=== PATIENT | female | born 1970 | race Caucasian/White ===

== ENCOUNTER → 2016-07-31 | Outpatient (CLI) | payer BC, OTHER ==
[~2016-07-31] MED LIST: ALBU18002 INH; BUME1TAB PO; CARV3.12 PO; IMT100 PO; LISI5TAB PO; MOME200A INH; TAMO20TA5 PO
--- NOTE | 2016-07-31 10:18 | DIAGNOSTIC IMAGING REPORT ---
CT SCAN OF THE CHEST WITHOUT IV CONTRAST CLINICAL HISTORY: Follow-up abnormal chest CT. COMPARISON STUDY: Chest CT scans dated 01/25/2016 and 05/26/2007. TECHNIQUE: CT scan of the thorax was performed from the thoracic inlet to the upper abdomen. Images are reviewed in the axial, sagittal, and coronal planes. IV contrast was not administered for this examination as per the referring clinician. CT DOSE: 615.72 mGycm FINDINGS: Thyroid: Imaged portions of the thyroid gland are normal in size and attenuation. Thoracic aorta: There is a right-sided aortic arch. The thoracic aorta is normal in caliber and demonstrates 3-vessel arch anatomy. Heart: The heart is normal in size and there is trace pericardial fluid. The left pulmonary artery is absent. The pulmonary trunk and the right pulmonary artery are normal in caliber. 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 The trachea and central airways are clear. There is trace pleural fluid the left lung base. Intralobular septal thickening and mild nodularity is seen throughout the left lung, greatest in the left upper lobe. This is similar to previous. No concerning pulmonary lesion is identified. Small cysts are present at the left lung base. The right lung is clear. Mediastinum: There is no mediastinal lymphadenopathy. There is leftward shift of mediastinum. Kelly: Not well assessed without IV contrast. Axillae: There is no axillary lymphadenopathy. Upper abdomen: There is a tiny hiatal hernia. Partially visualized upper abdominal viscera is otherwise within normal limits. Skeletal structures: No lytic or blastic bony lesions are seen. Soft tissues: There is a right-sided breast implant. Dermal thickening is noted in the right breast. IMPRESSION: 1. 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 This is similar to previous. 2. 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 3. Intralobular septal thickening and mild nodularity is seen throughout the left lung, greatest in the left upper lobe. This is similar to previous and likely related to the congenital changes detailed above. A superimposed mild infectious/inflammatory pneumonitis could have a similar appearance. Clinical correlation will be required. 4. Trace pleural fluid is seen in the left lung base. 5. Additional findings as above. Electronically signed by: Chano Sosa M.D. 07/31/2016 10:16 AM Dictated Date/Time: 07/31/2016 10:07 AM
== END | disposition home or self-care (01) ==
LOC: C.CTS 09:35
PROVIDERS: ATTEND Physician Assistant Medical
DX: Q25.79 Other congenital malformations of pulmonary artery (principal); Q33.6 Congenital hypoplasia and dysplasia of lung; R91.8 Other nonspecific abnormal finding of lung field

== ENCOUNTER → 2016-09-20 | Outpatient (CLI) | payer OTHER | END | disposition home or self-care (01) | LOC: C.LAB1850 11:26 | PROVIDERS: ATTEND Family Medicine | DX: R60.9 Edema, unspecified (principal) ==

== ENCOUNTER → 2016-10-31 | Outpatient (CLI) | payer OTHER ==
[2016-10-31 10:12] LABS: HEMATOCRIT 40.1 % (37-47); MEAN CELL VOLUME 90.1 fL (80-100); MEAN CORPUSCULAR HEMOGLOBIN 27.6 pg (25-34); MEAN CORPUSCULAR HGB CONC 30.7 g/dl (32-36); PLATELET COUNT 206 K/uL (130-400); RED BLOOD COUNT 4.45 M/uL (4.2-5.4); WHITE BLOOD COUNT 8.54 K/uL (4.8-10.8)
[2016-10-31 10:49] LABS: ALT/SGPT 20 U/L (12-78); AST/SGOT 11 U/L (15-37); BLOOD UREA NITROGEN 11 mg/dl (7-18); BUN/CREATININE RATIO 16.5 (10-20); CALCIUM 8.5 mg/dl (8.5-10.1); CARBON DIOXIDE 30 mmol/L (21-32); CHLORIDE 110 mmol/L (98-107); CREATININE 0.67 mg/dl (0.60-1.20); GLUCOSE 108 mg/dl (70-99); POTASSIUM 4.3 mmol/L (3.5-5.1); SODIUM 143 mmol/L (136-145)
[2016-10-31 10:52] LABS: ALKALINE PHOSPHATASE 48 U/L (45-117); CHOLESTEROL 128 mg/dl (0-200); CHOLESTEROL/HDL RATIO 2.6; HDL CHOLESTEROL 50 mg/dl; LDL CHOLESTEROL CALCULATED 54 mg/dl; TRIGLYCERIDES 121 mg/dl (0-150); VERY LOW DENSITY LIPOPROT CALC 24 mg/dl
== END | disposition home or self-care (01) ==
LOC: C.LAB1850 09:29
PROVIDERS: ATTEND Internal Medicine
DX: Z00.00 Encounter for general adult medical examination without abnormal findings (principal)

== ENCOUNTER → 2017-04-18 | Outpatient (CLI) | payer OTHER ==
--- NOTE | 2017-04-18 09:46 | DIAGNOSTIC IMAGING REPORT ---
(CHEST) THORAX WITHOUT CLINICAL HISTORY: 47 years-old Female presenting with R93.8 Abnormal chest [id number]. TECHNIQUE: Multidetector CT imaging of the chest was performed without the use of intravenous contrast. IV contrast: None. A dose lowering technique was used consistent with the principles of ALARA (as low as reasonably achievable). COMPARISON: 07/31/2016. CT DOSE (mGy.cm): The estimated cumulative dose is 1145.68 mGy.cm. 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 On soft tissue windows, post-surgical changes of subpectoral right breast implant. Overlying skin of the right breast. No axillary, supraclavicular, or mediastinal lymphadenopathy. Evaluation of the rahat limited without intravenous contrast. Normal aorta. 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 Normal heart size. Trace pericardial effusion. No pleural effusion. Hepatic steatosis. On lung windows, relative hyperinflation of the right lung. Minimal irregular bandlike opacity in the right middle lobe (series 4 image 173), new from prior. Paraseptal and centrilobular emphysematous and/or cystic change at the left lung base. Multifocal peribronchovascular nodular consolidation at the left apex, which were present on the prior exam and have not significantly progressed. Smooth interlobular septal thickening. Bronchial wall thickening in the left lung are the left lung is overall less aerated in comparison to the right. On bone windows, normal osseous structures. IMPRESSION: 1. 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 2. Persistent peribronchovascular nodularity and interlobular septal thickening most pronounced at the left apex. This likely represents chronic infection or inflammation. 3. Limited irregular bandlike opacity in the right middle lobe new from prior. This may represent focal scarring or atelectasis. Attention on follow-up. 4. No convincing evidence of a new superimposed infiltrate. 5. Hepatic steatosis. Electronically signed by: Ede Williamson M.D. 04/18/2017 9:44 AM Dictated Date/Time: 04/18/2017 9:34 AM
== END | disposition home or self-care (01) ==
LOC: C.CTS 09:22
PROVIDERS: ATTEND Physician Assistant Medical
DX: Q25.79 Other congenital malformations of pulmonary artery (principal); R91.8 Other nonspecific abnormal finding of lung field; R91.1 Solitary pulmonary nodule; R93.8 Abnormal findings on diagnostic imaging of other specified body structures

== ENCOUNTER → 2017-07-04 | Outpatient (CLI) | payer OTHER ==
--- NOTE | 2017-07-05 15:17 | MAMMOGRAPHY REPORT ---
UNILATERAL LEFT DIGITAL SCREENING MAMMOGRAM TOMOSYNTHESIS WITH CAD: 07/04/2017 CLINICAL HISTORY: Asymptomatic. Personal history of breast cancer. The patient reports a history of skin and nipple sparing right mastectomy as well as chemo radiation. TECHNIQUE: Breast tomosynthesis in addition to standard 2D mammography was performed. Current study was also evaluated with a Computer Aided Detection (CAD) system. Left CC and MLO 2D and tomosynthesi s images and left XCCL and right CC and MLO implant displaced 2D views were obtained. COMPARISON: Comparison is made to exams dated: 05/19/2014, 05/20/2015, 05/16/2013, 05/30/2011 mammogram, mammogram, 05/19/2010 mammogram, 05/16/2010 mammogram, and 05/13/2009 mammogram - [facility]. BREAST COMPOSITION: There are scattered areas of fibroglandular density in the left breast. FINDINGS: There are no suspicious masses, calcifications, or areas of architectural distortion noted in the left breast. There has been no significant interval change in the left breast compared to jarred or exams. A few scattered benign-appearing calcifications are stable. Mammograms were also obtained of the right mastectomy bed due to patient request, which shows a parti ally visualized implant. No suspicious masses, calcifications, or areas of architectural distortion are noted at the right mastectomy bed. Mild diffuse right breast skin thickening is stable compared to the 2016 exam. IMPRESSION: ACR BI-RADS CATEGORY 2: BENIGN There is no mammographic evidence of malignancy. A 1 year screening mammogram is recommended. The pa tient will receive written notification of the results. Approximately 10% of breast cancers are not detected with mammography. A negative mammographic report should not delay biopsy if a clinically suggestive mass is present. Sharifa Walker M.D. /:07/04/2017 15:52:01 [employer]: [employer])([facility]), [facility] letter sent: Normal 1/2 BI-RADS Code: ACR BI-RADS Category 2: Benign
== END | disposition home or self-care (01) ==
LOC: C.MAMM 13:56
PROVIDERS: ATTEND Internal Medicine Hematology & Oncology
DX: Z12.31 Encounter for screening mammogram for malignant neoplasm of breast (principal); Z85.3 Personal history of malignant neoplasm of breast

== ENCOUNTER → 2017-12-05 | Outpatient (CLI) | payer OTHER ==
--- NOTE | 2017-12-05 10:10 | DIAGNOSTIC IMAGING REPORT ---
R ANKLE MIN 3 VIEWS ROUTINE CLINICAL HISTORY: 47 years-old Female presenting with M25.571 Acute right ankle [id number]. TECHNIQUE: Frontal, mortise, and lateral views of the right ankle were obtained. COMPARISON: None. FINDINGS: Ankle mortise congruent. Osteophytosis at the ankle mortise most pronounced anteriorly and posteriorly. Enthesophyte at the origin of the plantar fascia. No acute fracture or malalignment. Soft tissue swelling suggested most pronounced over the lateral malleolus. IMPRESSION: 1. No acute osseous injury. 2. Degenerative changes of the ankle mortise. Electronically signed by: Ede Williamson M.D. 12/05/2017 10:09 AM Dictated Date/Time: 12/05/2017 10:08 AM
== END | disposition home or self-care (01) ==
LOC: C.RAD1850 09:56
PROVIDERS: ATTEND Physician Assistant
DX: M25.571 Pain in right ankle and joints of right foot (principal)

== ENCOUNTER 2021-05-30 09:13 | Inpatient (IN) ==
[2021-05-30] MEDS ORDERED: MoRPHine SULFATE 4 MG/ML 1 ML CARP\\VIAL IV STA (09:41)
[2021-05-30] MEDS ORDERED: ONDANSETRON INJ 2 MG/ML 2 ML VIAL IV STA (09:41)
[2021-05-30] MEDS ORDERED: SODIUM CHLORIDE 0.9% 1000ML 1,000 ML IV ONE (09:41)
--- NOTE | 2021-05-30 09:41 | Emergency Department Note ---
History of Present Illness General Chief complaint: Vomiting Stated complaint: VOMITING, ABD PAIN Time Seen by Provider: 05/30/21 09:32 History of Present Illness Maximum Pain Intensity: 10 This is a 51-year-old female that presents to the emergency department via private vehicle accompanied by with complaints of "vomiting, abdominal pain". The patient states that she has been experiencing vomiting, nausea and epigastric abdominal discomfort that began yesterday around 2 PM shortly after eating cream of chicken soup. She states that initially it was pain in the epigastric region followed by nausea than vomiting. She notes that this has been ongoing since that time. She does note a history of metastatic breast cancer and has been undergoing treatment and has had some associated nausea and vomiting but this is different. She denies any new chest pain or shortness of breath. No fevers. She denies any blood in the stool or vomit. Current discomfort 01/30. She tried Zofran last night as well as morphine that she is prescribed with minimal relief. Home Medications Medication Instructions Recorded Confirmed Type sumatriptan succinate 25 mg tablet 25 mg PO Q2H PRN 01/08/19 05/30/21 History (Imitrex) albuterol sulfate 90 mcg/actuation 2 puffs INH QID PRN #18 gm 10/17/19 05/30/21 Rx aerosol inhaler (ProAir HFA) zoledronic acid 4 mg/5 mL 4 mg IV Q3MO ml 12/31/19 05/30/21 History intravenous solution bumetanide 1 mg tablet 1 mg PO BID #180 tab 08/04/20 05/30/21 Rx fluticasone 232 mcg-salmeterol 14 1 inh INHALATION BID #1 ea 01/03/21 05/30/21 Rx mcg/actuation breath activated powdr gemcitabine [Gemzar] 1 dose IV WK 02/14/21 05/30/21 History ondansetron HCl 8 mg tablet 8 mg PO Q12H 02/22/21 05/30/21 History sacubitril 24 mg-valsartan 26 mg 1 tab PO BID #180 tab 02/22/21 05/30/21 Rx tablet carvedilol 12.5 mg tablet 12.5 mg PO BID #180 tab 03/21/21 05/30/21 Rx benzonatate 100 mg capsule 200 mg PO TID PRN #60 cap 03/28/21 05/30/21 Rx Allergies Allergy/AdvReac Type Severity Reaction Status Date / Time adhesive Allergy Rash Verified 04/27/21 14:42 No Known Drug Allergies Allergy Verified 04/27/21 14:42 Past Med/Surg History Medical History Cardiomyopathy Congenital hypoplasia of lung Left Heart failure with reduced ejection fraction History of breast cancer History of uterine fibroid Metastatic breast cancer (~2019) Prediabetes Surgical History History of breast reconstruction (~2011) Mack, 2 stage Electronic Equipment Set Up Operator/implant [place] smooth round high profile gel 750 cc Ref# [id number] LOT# [id number] SN# [id number] Date of permanent prosthesis placement: 08/12/2013 History of section History of mastectomy, total Hx of cardiac cath Family History Mother Breast cancer Pancreatic cancer Father Heart disease Cardiac arrhythmia Grandmother (Paternal) Breast cancer Family/Other Ovarian cancer Denies family history of Prostate cancer Myocardial infarction Colorectal cancer Social History Smoking Status: Never smoker Hx Alcohol Use: Yes Alcohol type: wine Hx Substance Use: No Preferred Language: Vietnamese Communication Ability: Effective Visual Impairment: Limited Hearing Ability: Normal Air Cargo Specialist Required: No Beliefs That Will Affect Care: None Current Living Situation: Spouse current occupational status: employed 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 Feels Safe at Home: Yes Dental Care, Regularly: Yes Seatbelt Use: always Sunscreen Use: Yes Review of Systems A total of 10 systems reviewed and were otherwise negative Physical Exam Vital Signs Vital Signs - 24 hr 05/30/21 09:15 05/30/21 10:13 05/30/21 10:20 Temperature 36.9 C Temperature Source Oral Pulse Rate 97 H 88 Pulse Rate from SpO2 Sensor 76 Respiratory Rate 18 21 Blood Pressure 111/71 Blood Pressure Mean 84 Pulse Oximetry 93 96 88 L Oxygen Delivery Method Room Air Room Air Sepsis Recent Fever Within 48 Hours No Sepsis New/Unexplained Change in Mental Status No Sepsis Action Taken by Nursing No Action Required 05/30/21 10:30 05/30/21 11:00 05/30/21 11:30 Temperature Temperature Source Pulse Rate 81 85 81 Pulse Rate from SpO2 Sensor 81 85 81 Respiratory Rate 17 12 19 Blood Pressure 114/73 112/83 131/84 Blood Pressure Mean 86 92 99 Pulse Oximetry 96 96 97 Oxygen Delivery Method Sepsis Recent Fever Within 48 Hours Sepsis New/Unexplained Change in Mental Status Sepsis Action Taken by Nursing 05/30/21 12:00 05/30/21 12:30 05/30/21 13:00 Temperature Temperature Source Pulse Rate 87 82 83 Pulse Rate from SpO2 Sensor 86 82 84 Respiratory Rate 14 14 14 Blood Pressure 126/98 123/88 127/87 Blood Pressure Mean 107 99 100 Pulse Oximetry 97 95 95 Oxygen Delivery Method Sepsis Recent Fever Within 48 Hours Sepsis New/Unexplained Change in Mental Status Sepsis Action Taken by Nursing 05/30/21 13:30 05/30/21 13:31 05/30/21 14:00 Temperature Temperature Source Pulse Rate 96 H 91 H 82 Pulse Rate from SpO2 Sensor 95 H 91 H 83 Respiratory Rate 23 21 14 Blood Pressure 86/60 L 104/87 Blood Pressure Mean 68 92 Pulse Oximetry 96 95 96 Oxygen Delivery Method Sepsis Recent Fever Within 48 Hours Sepsis New/Unexplained Change in Mental Status Sepsis Action Taken by Nursing 05/30/21 14:30 05/30/21 15:00 05/30/21 15:01 Temperature Temperature Source Pulse Rate 85 Pulse Rate from SpO2 Sensor 86 83 85 Respiratory Rate 14 14 17 Blood Pressure 111/85 77/61 L Blood Pressure Mean 93 66 Pulse Oximetry 89 L 95 95 Oxygen Delivery Method Sepsis Recent Fever Within 48 Hours Sepsis New/Unexplained Change in Mental Status Sepsis Action Taken by Nursing VITAL SIGNS - Vital signs and nursing notes were reviewed. Stable and afebrile. GENERAL -51-year-old female appearing her stated age who is in no acute distress. Communicates well with provider and answers questions appropriately. SKIN - Without rashes. No meningeal or petechial rash. HEAD - NC/AT. MOUTH/OROPHARYNX - Without perioral cyanosis. NECK - Neck with FROM. No nuchal rigidity. LUNGS - Chest wall symmetric without accessory muscle use, intercostals retractions, or central cyanosis. Normal vesicular breath sounds CTA B/L. No wheezes, rales, or rhonchi appreciated. CARDIAC - RRR with S1/S2. No murmur, rubs, or gallops appreciated. ABDOMEN - Abdominal contour normal without pulsations or visible masses. Epigastric abdominal tenderness to palpation noted. EXTREMITIES - No clubbing or peripheral cyanosis. +5/5 strength noted in UE/LE bilaterally. NEUROLOGIC - Cranial nerves II through XII grossly intact. PSYCH - A&O, and cooperates fully with examiner. Pt is very pleasant and interacts well with examiner. Course Administered Medications Hydromorphone HCl (Hydromorphone Inj 0.5 Mg/0.5 Ml Syr) 0.25 mg IV Q6H PRN PRN Reason: Pain Stop: 06/13/21 14:44 Last Admin: 05/30/21 16:05 Dose: 0.25 mg Documented by: [id number] Magnesium Sulfate/Dextrose (Magnesium Sulfate / D5w) 1 gm in 100 mls @ 50 m ls/hr IV Q2H PEREZ Stop: 05/30/21 19:59 Last Admin: 05/30/21 16:05 Dose: 50 mls/hr Documented by: [id number] Discontinued Medications Sodium Chloride (Nss 1000ml) 1,000 mls @ 500 mls/hr IV .Q2H ONE Stop: 05/30/21 11:40 Last Infusion: 05/30/21 12:19 Dose: 0 mls/hr Documented by: [id number] Admin: 05/30/21 10:17 Dose: 500 mls/hr Documented by: [id number] Lactated Ringer's (Lr) 500 mls @ 1,500 mls/hr IV .Q20M ONE Stop: 05/30/21 13:28 Last Admin: 05/30/21 13:54 Dose: Not Given Documented by: [id number] Lactated Ringer's (Lr) 1,000 mls @ 999 mls/hr IV .Q1H1M ONE Stop: 05/30/21 14:36 Last Admin: 05/30/21 16:04 Dose: 999 mls/hr Documented by: [id number] Piperacillin Sod/Tazobactam (Sod 4.5 gm/ Dextrose) 120 mls @ 200 mls/hr IV NOW ONE; Protocol Stop: 05/30/21 16:20 Last Admin: 05/30/21 16:05 Dose: 200 mls/hr Documented by: [id number] Ioversol (Optiray 320 100ml) 94 ml IV ONCE ONE Stop: 05/30/21 11:21 Last Admin: 05/30/21 11:13 Dose: 94 ml Documented by: [id number] Magnesium Oxide (Magnesium Oxide 400 Mg Tab) 300 mg PO NOW ONE Stop: 05/30/21 13:10 Last Admin: 05/30/21 13:54 Dose: Not Given Documented by: [id number] Morphine Sulfate (Morphine Sulfate 4 Mg/Ml 1 Ml Carp\\Vial) 4 mg IV NOW STA Stop: 05/30/21 09:42 Last Admin: 05/30/21 10:17 Dose: 4 mg Documented by: [id number] Ondansetron HCl (Ondansetron Inj 2 Mg/Ml 2 Ml Vial) 4 mg IV NOW STA Stop: 05/30/21 09:42 Last Admin: 05/30/21 10:17 Dose: 4 mg Documented by: [id number] Medical Decision Making Laboratory Data Result diagrams: 05/30/21 10:20 05/30/21 10:20 Lab Results 05/30/21 05/30/21 05/30/21 Range/Units 10:20 10:20 10:20 WBC 21.23 H (4.8-10.8) K/uL RBC 4.37 (4.2-5.4) M/uL Hgb 14.6 (12.0-16.0) g/dL Hct 45.8 (37-47) % MCV 104.8 H (80-100) fL MCH 33.4 (25-34) pg MCHC 31.9 L (32-36) g/dL RDW Std Deviation 59.7 H (36.4-46.3) fL RDW Coeff of Carol 15.4 H (11.5-14.5) % Plt Count 144 (130-400) K/uL MPV 10.4 (7.4-10.4) fL Immature Gran % (Auto) 0.2 % Neut % (Auto) 91.5 % Lymph % (Auto) 4.2 % [place] % (Auto) 3.7 % Eos % (Auto) 0.2 % Baso % (Auto) 0.2 % Neut # (Auto) 19.41 H (1.4-6.5) K/uL Lymph # (Auto) 0.90 L (1.2-3.4) K/uL [place] # (Auto) 0.78 H (0.11-0.59) K/uL Eos # (Auto) 0.05 (0-0.5) K/uL Baso # (Auto) 0.04 (0-0.2) K/uL Immature Gran # (Auto) 0.05 H (0.00-0.02) K/uL Sodium 136 (136-145) mmol/L Potassium 4.3 (3.5-5.1) mmol/L Chloride 101 (98-107) mmol/L Carbon Dioxide 26 (21-32) mmol/L Anion Gap 9 (3-11) BUN 11 (6-23) mg/dl Creatinine 0.68 (0.6-1.2) mg/dl Est Cr Clr Drug Dosing 120.2 ml/min Est GFR ( Amer) 116.6 ml/min Est GFR (Non-Af Amer) 100.6 ml/min BUN/Creatinine Ratio 16.2 (10-20) Glucose 120 H (70-99(Fasting)) mg/dl Calcium 8.5 (8.5-10.1) mg/dl Magnesium 1.4 L (1.7-2.4) mg/dl Total Bilirubin 2.4 H (0.2-1.0) mg/dl AST 83 H (13-39) U/L ALT 38 (7-52) U/L Alkaline Phosphatase 124 H (34-104) U/L Total Protein 6.2 (6.0-8.3) gm/dl Albumin 2.6 L (3.4-5.0) gm/dl Globulin 3.6 (2.5-4.0) gm/dl Albumin/Globulin Ratio 0.7 L (0.9-2) Lipase 3193 H (11-82) U/L Procalcitonin (0-0.5) ng/ml SARS-CoV-2, RNA, NAAT NEGATIVE (NEGATIVE) 05/30/21 Range/Units 14:10 WBC (4.8-10.8) K/uL RBC (4.2-5.4) M/uL Hgb (12.0-16.0) g/dL Hct (37-47) % MCV (80-100) fL MCH (25-34) pg MCHC (32-36) g/dL RDW Std Deviation (36.4-46.3) fL RDW Coeff of Carol (11.5-14.5) % Plt Count (130-400) K/uL MPV (7.4-10.4) fL Immature Gran % (Auto) % Neut % (Auto) % Lymph % (Auto) % [place] % (Auto) % Eos % (Auto) % Baso % (Auto) % Neut # (Auto) (1.4-6.5) K/uL Lymph # (Auto) (1.2-3.4) K/uL [place] # (Auto) (0.11-0.59) K/uL Eos # (Auto) (0-0.5) K/uL Baso # (Auto) (0-0.2) K/uL Immature Gran # (Auto) (0.00-0.02) K/uL Sodium (136-145) mmol/L Potassium (3.5-5.1) mmol/L Chloride (98-107) mmol/L Carbon Dioxide (21-32) mmol/L Anion Gap (3-11) BUN (6-23) mg/dl Creatinine (0.6-1.2) mg/dl Est Cr Clr Drug Dosing ml/min Est GFR ( Amer) ml/min Est GFR (Non-Af Amer) ml/min BUN/Creatinine Ratio (10-20) Glucose (70-99(Fasting)) mg/dl Calcium (8.5-10.1) mg/dl Magnesium (1.7-2.4) mg/dl Total Bilirubin (0.2-1.0) mg/dl AST (13-39) U/L ALT (7-52) U/L Alkaline Phosphatase (34-104) U/L Total Protein (6.0-8.3) gm/dl Albumin (3.4-5.0) gm/dl Globulin (2.5-4.0) gm/dl Albumin/Globulin Ratio (0.9-2) Lipase (11-82) U/L Procalcitonin 0.94 H (0-0.5) ng/ml SARS-CoV-2, RNA, NAAT (NEGATIVE) Imaging Data Radiologist's Impression: Abdomen/Pelvis CT 05/30/21 09:41 CT abd pelvis IV con only CLINICAL HISTORY: Diffuse abdominal pain with nausea and vomiting . History of breast cancer COMPARISON STUDY: No previous studies for comparison. CT DOSE: 1520.68 mGy.cm TECHNIQUE: Standard CT of the Abdomen and Pelvis was performed with IV contrast. A dose lowering technique was utilized adhering to the principles of ALARA. Contrast Volume: Optiray 320, 94 ml. The patient did not receive oral contrast. FINDINGS: Lung base: The right lung is clear. Bullous disease is seen involving the left lower lobe. This also pleural thickening at the left lung base. Abdominal cavity and pancreas there is: There is no evidence for abdominal mass, adenopathy or gross ascites. There is diffuse edema present involving the pancreas characteristic of acute, diffuse pancreatitis. Peripancreatic inflammatory changes are seen. Fluid is present within the adjacent mesentery with extension into both paracolic gutters. No pseudocyst formation is seen. Liver: There is homogeneous fatty attenuation of the liver parenchyma. There is heterogeneous nodular enhancement of a lesion within the right lobe of the liver anteriorly measuring approximately 2.5 cm. This is most characteristic of a hemangioma. No other enhancing lesions are seen. Spleen: There is homogeneous attenuation of the splenic parenchyma. There is no enhancing mass lesion. Gall Bladder: The gallbladder is distended with cholelithiasis. No evidence for wall thickening or pericholecystic edema is seen. Adrenal glands: The adrenal glands are normal in size and attenuation. There is no evidence for enhancing mass lesion. Kidneys: There is homogeneous attenuation of the renal parenchyma bilaterally. There is no evidence for renal calculus or hydronephrosis. There is no evidence for enhancing mass. Bowel: The bowel loops are normally placed within the abdomen and pelvis without evidence for dilatation or obstruction. There is no evidence for mass lesion. T here are no inflammatory changes present. There is no evidence for free air. The appendix is not visualized. Bladder: The bladder is within normal limits with no evidence for focal mass, calculus or diverticulum. : There is no evidence for pelvic mass or adenopathy. There is no evidence for pelvic ascites. Vasculature: There is no evidence for aneurysmal dilatation of the abdominal aorta. Osseous structures: There is no acute osseous pathology. Degenerative changes are seen within the spine. IMPRESSION: 1. Acute pancreatitis with peripancreatic inflammatory changes and mesenteric edema present. 2. Fatty infiltration of the liver with findings characteristic of a hemangioma. 3. Cholelithiasis with no CT evidence for acute cholecystitis. 4. Additional nonacute findings are delineated above. ACT 112: Negative or not required by law. Electronically signed by: Marc Obrien M.D. 05/30/2021 11:32 AM MDM Narrative Patient was seen and evaluated as above in room C02. Review was performed of nursing notes and vital signs. I did review pertinent previous visits and patient history. After obtaining a thorough history and physical examination the above work up was performed. Patient presents to us today with epigastric abdominal discomfort, nausea and vomiting. Patient does note a history of metastatic breast cancer. She is nontoxic on examination. Vital signs stable. Afebrile. Options of care were discussed with the patient. IV access was established. Labs were drawn. Patient was ordered IV analgesics and antiemetics. IV fluids were also ordered. There is leukocytosis 21.23. No anemia. No evidence of kidney failure. There is hypomagnesemia 1.4. T bili 2.4. AST 83. T bili elevation is new compared to previous. Lipase 3193. Covid testing negative. Patient's nausea, vomiting and abdominal discomfort in the epigastric region with a lipase of [address] scan was obtained of the abdomen and pelvis with IV contrast. Acute pancreatitis noted on CT scan. I do believe that further evaluation and management the inpatient setting is warranted. Patient educated upon todays findings. Patient amenable to inpatient management. Please refer to further documentation regarding her stay. At this time I have low suspicion for ascending cholangitis or emergent infectious etiology to her symptoms at this time. GCS: 15 In the evaluation and treatment of this patient, the following differential diagnoses were considered: ASC, SD, Pneumonia, GERD, Cholecystitis, Ascending Cholangitis, Cholydocholithiasis, Bowel Obstruction, PE, Amongst Others. Impression & Plan Acute pancreatitis, Hypomagnesemia, Nausea & vomiting Discharge Plan Visit Data Chief Complaint: Vomiting Stated Complaint: VOMITING, ABD PAIN ED Provider: Sam Chery ED Midlevel Provider: Paul Borja Discharge Problem: Acute pancreatitis, Hypomagnesemia, Nausea & vomiting Patient Disposition: Admitted As Inpatient Condition: Good Forms Stand Alone Forms: My [employer] Prescriptions Prescriptions: No Action albuterol sulfate [ProAir HFA] 90 mcg/actuation HFA aerosol inhaler 2 puffs INH QID PRN (Reason: shortness of breath or wheezing) Qty: 18 RF: 2 bumetanide 1 mg tablet 1 mg PO BID Qty: 180 RF: 3 fluticasone propion-salmeterol 232-14 mcg/actuation aerosol powdr breath ac tivated 1 inh inhalation BID Qty: 1 RF: 2 carvedilol 12.5 mg tablet 12.5 mg PO BID Qty: 180 RF: 3 benzonatate 100 mg capsule 200 mg PO TID PRN (Reason: cough) Qty: 60 RF: 2 gemcitabine [Gemzar] 1 dose IV WK RF: 0 ondansetron HCl 8 mg tablet 8 mg PO Q12H RF: 0 sacubitril-valsartan 24-26 mg tablet 1 tab PO BID Qty: 180 RF: 3 sumatriptan succinate [Imitrex] 25 mg tablet 25 mg PO Q2H PRN (Reason: Migraine Headache) RF: 0 zoledronic acid 4 mg/5 mL solution 4 mg IV Q3MO RF: 0 Referrals Referrals: Ancelmo Ledbetter DO [Primary Care Provider] -
[2021-05-30 10:30] LABS: Basophils # (auto) 0.04 K/uL (0-0.2); Basophils % (auto) 0.2 %; Eosinophils # (auto) 0.05 K/uL (0-0.5); Eosinophils % (auto) 0.2 %; Hematocrit (blood only) 45.8 % (37-47); Hemoglobin 14.6 g/dL (12.0-16.0); Immature Granulocytes # (auto) 0.05 K/uL (0.00-0.02); Immature Granulocytes % (auto) 0.2 %; Lymphocytes % (auto) 4.2 %; Mean Corpuscular Hemoglobin 33.4 pg (25-34); Mean Corpuscular Hgb Conc 31.9 g/dL (32-36); Mean Corpuscular Volume 104.8 fL (80-100); Mean Platelet Volume 10.4 fL (7.4-10.4); Monocytes # (auto) 0.78 K/uL (0.11-0.59); Monocytes % (auto) 3.7 %; Neutrophils # (auto) 19.41 K/uL (1.4-6.5); Neutrophils % (auto) 91.5 %; Platelet Count 144 K/uL (130-400); RDW Coefficient of Variation 15.4 % (11.5-14.5); RDW Standard Deviation 59.7 fL (36.4-46.3); Red Blood Count 4.37 M/uL (4.2-5.4); White Blood Count 21.23 K/uL (4.8-10.8)
[2021-05-30 10:51] LABS: BUN Creatinine Ratio 16.2 (10-20); Calcium 8.5 mg/dl (8.5-10.1); Creatinine Clr Calc Pharmacy 120.2 ml/min; Est GFR (African American) 116.6 ml/min; Est GFR (Non-African American) 100.6 ml/min; Potassium 4.3 mmol/L (3.5-5.1)
[2021-05-30 10:52] LABS: Albumin Globulin Ratio 0.7 (0.9-2); Albumin Level 2.6 gm/dl (3.4-5.0); Bilirubin,Total 2.4 mg/dl (0.2-1.0); Globulin 3.6 gm/dl (2.5-4.0); Magnesium 1.4 mg/dl (1.7-2.4); Total Protein 6.2 gm/dl (6.0-8.3)
[2021-05-30] MEDS ORDERED: OPTIRAY 320 100ml IV ONE (11:20)
--- NOTE | 2021-05-30 11:34 | CT Scan Report ---
CT abd pelvis IV con only CLINICAL HISTORY: Diffuse abdominal pain with nausea and vomiting . History of breast cancer COMPARISON STUDY: No previous studies for comparison. CT DOSE: 1520.68 mGy.cm TECHNIQUE: Standard CT of the Abdomen and Pelvis was performed with IV contrast. A dose lowering ciarra hnique was utilized adhering to the principles of ALARA. Contrast Volume: Optiray 320, 94 ml. The patient did not receive oral contrast. FINDINGS: Lung base: The right lung is clear. Bullous disease is seen involving the left lower lobe. This also pleural thickening at the left lung base. Abdominal cavity and pancreas there is: There is no evidence for abdominal mass, adenopathy or gross ascites. There is diffuse edema present involving the pancreas characteristic of acute, diffuse pancreatitis. Peripancreatic inflammatory changes are seen. Fluid is present within the adjacent mesentery with ext ension into both paracolic gutters. No pseudocyst formation is seen. Liver: There is homogeneous fatty attenuation of the liver parenchyma. There is heterogeneous nodular enhancement of a lesion within the right lobe of the liver anteriorly measuring approximately 2.5 cm . This is most characteristic of a hemangioma. No other enhancing lesions are seen. Spleen: There is homogeneous attenuation of the splenic parenchyma. There is no enhancing mass lesion . Gall Bladder: The gallbladder is distended with cholelithiasis. No evidence for wall thickening or pe richolecystic edema is seen. Adrenal glands: The adrenal glands are normal in size and attenuation. There is no evidence for enhan cing mass lesion. Kidneys: There is homogeneous attenuation of the renal parenchyma bilaterally. There is no evidence f or renal calculus or hydronephrosis. There is no evidence for enhancing mass. Bowel: The bowel loops are normally placed within the abdomen and pelvis without evidence for dilatat ion or obstruction. There is no evidence for mass lesion. There are no inflammatory changes present. There is no evidence for free air. The appendix is not visualized. Bladder: The bladder is within normal limits with no evidence for focal mass, calculus or diverticulu m. : There is no evidence for pelvic mass or adenopathy. There is no evidence for pelvic ascites. Vasculature: There is no evidence for aneurysmal dilatation of the abdominal aorta. Osseous structures: There is no acute osseous pathology. Degenerative changes are seen within the spi ne. IMPRESSION: 1. Acute pancreatitis with peripancreatic inflammatory changes and mesenteric edema present. 2. Fatty infiltration of the liver with findings characteristic of a hemangioma. 3. Cholelithiasis with no CT evidence for acute cholecystitis. 4. Additional nonacute findings are delineated above. ACT 112: Negative or not required by law. Electronically signed by: Marc Obrien M.D. 05/30/2021 11:32 AM
--- NOTE | 2021-05-30 13:07 | History & Physical Report ---
Date of Service May 30, 2021 Assessment & Plan (1) Pancreatitis, gallstone: Plan: -Diffuse abdominal pain with Lipase 3093. CT of the abdomen showed the gallbladder consistent with cholelithiasis. No evidence for wall thickening or pericholecystic edema seen. Acute pancreatitis with peripancreatic inflammatory changes and mesenteric edema is present. -T bili 2.4, AST 83, ALT 38, alk phos 124. -WBC 21.23 -Blood cultures pending. -IV Zosyn 4.5g Q6h. -Continue LR IVF -Dilaudid 0.25mg Q6h prn. -MRCP ordered, pending. -GI consulted, recommending NPO, ABX, MRCP today with ERCP planned for tomorrow. -CBC, BMP, lipase in AM (2) Cholelithiases: Plan: -As above. (3) Heart failure with reduced ejection fraction: Plan: -Echo from 05/10/21 reveals EF 45-50%. Left ventricular systolic function is borderline reduced, borderline hypokinesis of left ventricle. -Will hold Bumex for now as patient is hypovolemic. -Continue to monitor BMP daily as well as for signs of volume overload. -Continue Entresto and Coreg. (4) Cardiomyopathy: Plan: -Idiopathic versus chemotherapy-induced. -As above. (5) Hypomagnesemia: Plan: -Mg++ 1.4. -Replete 3 g, recheck in AM. (6) Metastatic breast cancer: Plan: -Patient reports her last chemo treatment approx 1 month ago. (7) Reactive airway disease: Plan: -Continue albuterol inhaler. -Continue fluticasone salmeterol inhaler. -Monitor SpO2. (8) DVT prophylaxis: Plan: -SCDs ordered. -Heparin SQ q12 (9) Sepsis: (10) Morbid obesity with BMI of 40.0-44.9, adult: History of Present Illness Chief Complaint: Abdominal pain Primary Care Provider: Ancelmo Ledbetter DO Patient is a 51-year-old female with past medical history of stage IV metastatic breast cancer, HFrEF (EF 45-50%), cardiomyopathy, reactive airway disease, and obesity who presents with abdominal pain and vomiting. Patient states yesterday morning, 05/29, she became nauseated and shortly after. began experiencing frequent emesis. Emesis started out as clear liquid, is now dark green. As the day went on, she developed abdominal pain that has been constant and diffuse in nature. She has been taking her morphine which has slightly alleviated her pain temporarily, however she has been unable to keep meals down since yesterday morning. She endorses diffuse abdominal pain, chills, nausea, and frequent emesis. She also notes she has been more constipated over the past 2 days, but otherwise BMs are unchanged, denies rosie-like stools or diarrhea. No recorded fever, confusion, lightheadedness, dizziness, or urinary symptoms such as increased frequency, urgency, or dysuria. Patient has had chronic nausea with emesis over the 1-2 months, her oncologist believed this may due to one of her chemotherapy agents, which was stopped 3-4 weeks ago. She has not received treatment since then. She has metastatic disease to her lymph nodes, brain, and bone, but denies knowledge of any liver or other abdominal metastatic disease. Allergies Allergy/AdvReac Type Severity Reaction Status Date / Time adhesive Allergy Rash Verified 04/27/21 14:42 No Known Drug Allergies Allergy Verified 04/27/21 14:42 Home Medications Medication Instructions Recorded Confirmed Type sumatriptan succinate 25 mg tablet 25 mg PO Q2H PRN 01/08/19 05/30/21 History (Imitrex) albuterol sulfate 90 mcg/actuation 2 puffs INH QID PRN #18 gm 10/17/19 05/30/21 Rx aerosol inhaler (ProAir HFA) zoledronic acid 4 mg/5 mL 4 mg IV Q3MO ml 12/31/19 05/30/21 History intravenous solution bumetanide 1 mg tablet 1 mg PO BID #180 tab 08/04/20 05/30/21 Rx fluticasone 232 mcg-salmeterol 14 1 inh INHALATION BID #1 ea 01/03/21 05/30/21 Rx mcg/actuation breath activated powdr gemcitabine [Gemzar] 1 dose IV WK 02/14/21 05/30/21 History ondansetron HCl 8 mg tablet 8 mg PO Q12H 02/22/21 05/30/21 History sacubitril 24 mg-valsartan 26 mg 1 tab PO BID #180 tab 02/22/21 05/30/21 Rx tablet carvedilol 12.5 mg tablet 12.5 mg PO BID #180 tab 03/21/21 05/30/21 Rx benzonatate 100 mg capsule 200 mg PO TID PRN #60 cap 03/28/21 05/30/21 Rx Past Med/Surg History Medical History Acute pancreatitis Cardiomyopathy Congenital hypoplasia of lung Left Heart failure with reduced ejection fraction History of breast cancer History of uterine fibroid Metastatic breast cancer (~2019) Mixed hyperlipidemia Morbid obesity with BMI of 45.0-49.9, adult Prediabetes Reactive airway disease Surgical History History of breast reconstruction (~2011) Mack, 2 stage Tube Bender/implant [place] smooth round high profile gel 750 cc Ref# [id number] LOT# [id number] SN# [id number] Date of permanent prosthesis placement: 08/12/2013 History of section History of mastectomy, total Hx of cardiac cath Family History Mother Breast cancer Pancreatic cancer Father Heart disease Cardiac arrhythmia Grandmother (Paternal) Breast cancer Family/Other Ovarian cancer Denies family history of Prostate cancer Myocardial infarction Colorectal cancer Social History Smoking Status: Never smoker Second Hand Exposure: No; Do You Dip or Chew Tobacco: No; Tobacco Cessation Education Requested by Patient: No Hx Alcohol Use: Yes Alcohol type: wine Hx Substance Use: No Preferred Language: Citizen Of [place] Communication Ability: Effective Visual Impairment: Limited Hearing Ability: Normal Lead Injection Mold Technician Required: No Beliefs That Will Affect Care: None Current Living Situation: Family current occupational status: employed 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 Other Information That Helps Us Care for You: No Feels Safe at Home: Yes Safety Concerns: Feels Safe At This Time Dental Care, Regularly: Yes Seatbelt Use: always Sunscreen Use: Yes Assistive Devices: Cane and Glasses Review of Systems Review of Systems: Constitutional: Reportrs chills, no objective fever, myalgias, night sweats Eyes: No diplopia, no worsening or blurred vision ENT: normal hearing, no trouble swallowing Respiratory: No cough, sputum, dyspnea at rest or on exertion Cardiovascular: No chest pain, tightness or palpitations Abdomen: Reports diffuse abdomial pain with nausea and vomiting; no diarrhea or constipation Musculoskeletal: No joint pain, calf pain, swelling Neurologic: No weakness, numbness/tingling, or balance problems Psychiatric: No anxiety or depression Skin: No rash or itch Physical Exam 2 Physical Exam: General: awake, alert, no apparent distress Head: Normocephalic, atraumatic ENT: PERRL, EOMI, no pharyngeal exudate, mucous membranes moist Chest: Clear to auscultation, on room air, no adventitious breath sounds Cardiac: Regular rate and rhythm, no murmur, no JVD, normal peripheral pulses, good capillary refill Abdominal: Diffusely tender to light palpation without localized pain; abdomen is soft and nondistended; NABS x 4 quadrants no rebound or guarding Extremities: Normal inspection, no peripheral edema or erythema, calfs nonte nder to palpation Psych: Normal mood and affect Neuro: AAO x 3, strength intact bilaterally and rated 5/5, no motor deficits, speech is clear, no peripheral sensory deficits Skin: no rash or erythema Results & Data Results & Data ([facility]) Vital Signs (Past 12 Hours) Vital Signs Temp Pulse Resp BP Pulse Ox 05/30/21 11:30 81 19 131/84 97 05/30/21 11:00 85 12 112/83 96 05/30/21 10:30 81 17 114/73 96 05/30/21 10:20 88 21 88 L 05/30/21 10:13 96 05/30/21 09:15 36.9 C 97 H 18 111/71 93 Laboratory Results Abnormal lab results 05/30/21 05/30/21 Range/Units 10:20 10:20 WBC 21.23 H (4.8-10.8) K/uL MCV 104.8 H (80-100) fL MCHC 31.9 L (32-36) g/dL RDW Std Deviation 59.7 H (36.4-46.3) fL RDW Coeff of Carol 15.4 H (11.5-14.5) % Neut # (Auto) 19.41 H (1.4-6.5) K/uL Lymph # (Auto) 0.90 L (1.2-3.4) K/uL [place] # (Auto) 0.78 H (0.11-0.59) K/uL Immature Gran # (Auto) 0.05 H (0.00-0.02) K/uL Glucose 120 H (70-99(Fasting)) mg/dl Magnesium 1.4 L (1.7-2.4) mg/dl Total Bilirubin 2.4 H (0.2-1.0) mg/dl AST 83 H (13-39) U/L Alkaline Phosphatase 124 H (34-104) U/L Albumin 2.6 L (3.4-5.0) gm/dl Albumin/Globulin Ratio 0.7 L (0.9-2) Lipase 3193 H (11-82) U/L Diagnostic Findings Abdomen/Pelvis CT 05/30/21 09:41 CT abd pelvis IV con only CLINICAL HISTORY: Diffuse abdominal pain with nausea and vomiting . History of breast cancer COMPARISON STUDY: No previous studies for comparison. CT DOSE: 1520.68 mGy.cm TECHNIQUE: Standard CT of the Abdomen and Pelvis was performed with IV contrast. A dose lowering technique was utilized adhering to the principles of ALARA. Contrast Volume: Optiray 320, 94 ml. The patient did not receive oral contrast. FINDINGS: Lung base: The right lung is clear. Bullous disease is seen involving the left lower lobe. This also pleural thickening at the left lung base. Abdominal cavity and pancreas there is: There is no evidence for abdominal mass, adenopathy or gross ascites. There is diffuse edema present involving the pancreas characteristic of acute, diffuse pancreatitis. Peripancreatic inflammatory changes are seen. Fluid is present within the adjacent mesentery with extension into both paracolic gutters. No pseudocyst formation is seen. Liver: There is homogeneous fatty attenuation of the liver parenchyma. There is heterogeneous nodular enhancement of a lesion within the right lobe of the liver anteriorly measuring approximately 2.5 cm. This is most characteristic of a hemangioma. No other enhancing lesions are seen. Spleen: There is homogeneous attenuation of the splenic parenchyma. There is no enhancing mass lesion. Gall Bladder: The gallbladder is distended with cholelithiasis. No evidence for wall thickening or pericholecystic edema is seen. Adrenal glands: The adrenal glands are normal in size and attenuation. There is no evidence for enhancing mass lesion. Kidneys: There is homogeneous attenuation of the renal parenchyma bilaterally. There is no evidence for renal calculus or hydronephrosis. There is no evidence for enhancing mass. Bowel: The bowel loops are normally placed within the abdomen and pelvis without evidence for dilatation or obstruction. There is no evidence for mass lesion. There are no inflammatory changes present. There is no evidence for free air. The appendix is not visualized. Bladder: The bladder is within normal limits with no evidence for focal mass, calculus or diverticulum. : There is no evidence for pelvic mass or adenopathy. There is no evidence for pelvic ascites. Vasculature: There is no evidence for aneurysmal dilatation of the abdominal aorta. Osseous structures: There is no acute osseous pathology. Degenerative changes are seen within the spine. IMPRESSION: 1. Acute pancreatitis with peripancreatic inflammatory changes and mesenteric edema present. 2. Fatty infiltration of the liver with findings characteristic of a hemangioma. 3. Cholelithiasis with no CT evidence for acute cholecystitis. 4. Additional nonacute findings are delineated above. Medications Administered Current Medications Lactated Ringer's (Lr) 1,000 mls @ 999 mls/hr IV .Q1H1M ONE Stop: 05/30/21 14:36 Magnesium Sulfate/Dextrose (Magnesium Sulfate / D5w) 1 gm in 100 mls @ 50 mls/hr IV Q2H PEREZ Stop: 05/30/21 19:59 Code Status & VTE Plan Code Status Full Code VTE Prophylaxis Plan VTE Prophylaxis will be ordered: Yes Supervising Physician Co-Signing Physician Notes Attending Attestation and Admission Note: Pt seen/examined, chart reviewed, care plan d/w OSIEL Garcia. I agree w/ the hall components of her documentation with the following addition - sepsis, 2nd to gallstone pancreatitis and ?ascending cholangitis. 51yo female with stage 4 breast ca, chronic systolic CHF with EF 45-50% on most recent echo, morbid obesity, T2DM - presents with severe abdominal pain, N/V beginning 05/29/21. Presented today due to the severe abd pain. Found to have elevated lipase and evidence of pancreatitis on CT. Gall bladder on CT with numerous stones. LFTs all high including bilirubin. During my assessment she complaints of being thirsty, weak, and having ongoing abd pain. PMH/PSH/allergies/meds/sochx/famhx - reviewed vitals - BPs low normal, sats wnl, afebrile gen - looks ill/sickly, uncomfortable due to abd pain eyes - nonicteric mouth - MM dry neck - no JVD heart - RRR, s1 s2 lungs - cta b/l abd - severe tenderness mid-abdomen and mildly in the high epigastric region and RUQ, BS+ but diminished, no HSM ext - no edema, cool feet, pulses 1-2+ b/l labs reviewed ct a/p reviewed A/P: 1. gallstone pancreatitis 2. ?acute cholecystitis with ascending cholangitis? 3. chronic systolic CHF 4. stage 4 breast ca * broad-spectrum IV antibiotics given #2 * blood cultures - trend * MRCP urgently; if choledocholithiasis is present and/or t. bili continues to rise likely to need ERCP; [facility] has been consulted * serial labs * copious LR hydration for #1, at least 125-150cc/hr * does have #3, but is volume depleted on exam and should be able to tolerate the LR hydration * if BPs remain low hold her Entresto and decrease her coreg (or hold it) gen surg consultation - can hold off today but consult them tomorrow as she will need lap james ideally later in admission care plan was d/w [facility] by Ms Garcia pt's status signed out to night resident physician VERY low threshold to transfer to [facility]U [place] Mendez MD PG Care Time/CCT Total # of Minutes Spent Total Time Spent with Patient: Total time spent is greater than 50% in coordination of care (as documented) at patient's floor/unit and/or counseling patient: Coding Level of Care Code 34360 Initial Inpt Care Lvl 3 Diagnoses Pancreatitis, gallstone K85.10 Cholelithiases K80.20 Metastatic breast cancer C50.919 Heart failure with reduced ejection fraction I50.20 Cardiomyopathy I42.9 Reactive airway disease J45.909 Hypomagnesemia E83.42 DVT prophylaxis Z29.9 Sepsis A41.9 Morbid obesity with BMI of 40.0-44.9, adult E66.01; Z68.41
[2021-05-30] MEDS ORDERED: LACTATED RINGER'S 500 ML IV ONE ×2 (13:09→21:13)
[2021-05-30] MEDS ORDERED: MAGNESIUM OXIDE 400 MG TAB PO ONE (13:09)
[2021-05-30] MEDS ORDERED: LACTATED RINGER'S 1,000 ML IV ONE (13:36)
[2021-05-30] MEDS ORDERED: PIPERACILL/TAZOBAC CONSULT ACTIVE PRN ×2 (14:40→20:46)
[2021-05-30] MEDS ORDERED: PIPERACILLIN/TAZOBACTAM 4.5 GM in DEXTROSE 5% 100 ML IV ONE (15:45)
[2021-05-30] MEDS ORDERED: PIPERACILLIN/TAZOBACTAM 4.5 GM/120ML D5W IV ONE (16:02)
[2021-05-30] MEDS: HYDROmorphone INJ 0.5 MG/0.5 ML SYR IV PRN ×2 (16:05→19:37)
[2021-05-30] MEDS: MAGNESIUM SULFATE / D5W 1 GM/100 ML BAG IV SCH ×3 (16:05→19:18)
--- NOTE | 2021-05-30 16:41 | Communication Note ---
Date of Service: May 30, 2021 I was consulted on the patient by primary team regarding gallstone pancreatitis, had leukocytosis and elevated LFTs. Recommend: IV ABx MRCP today NPO ERCP tomorrow.
--- NOTE | 2021-05-30 17:20 | Anesthesiology Consultation ---
Date of Service May 30, 2021 Assessment & Plan (1) Encounter for pre-operative examination: Chart Review Chart Review: Acceptable Risk for Surgery (necessary surgery) and Patient NOT seen in Pre Admission Testing Consults Requested none History Surgery Operation Date: 05/31/21 09:05 Proposed Procedures p Endoscopic Retrograde Cholangiopancreatogram - Barber Mckeon MD Height/Weight Height: 5 ft 4 in Weight: 114.6 kg Allergies Allergy/AdvReac Type Severity Reaction Status Date / Time adhesive Allergy Rash Verified 04/27/21 14:42 No Known Drug Allergies Allergy Verified 04/27/21 14:42 Medications Home Medications Medication Instructions Recorded Confirmed Last Taken sumatriptan succinate 25 mg tablet 25 mg PO Q2H PRN 01/08/19 05/30/21 Unknown (Imitrex) albuterol sulfate 90 mcg/actuation 2 puffs INH QID PRN #18 gm 10/17/19 05/30/21 Unknown aerosol inhaler (ProAir HFA) zoledronic acid 4 mg/5 mL 4 mg IV Q3MO ml 12/31/19 05/30/21 Unknown intravenous solution bumetanide 1 mg tablet 1 mg PO BID #180 tab 08/04/20 05/30/21 Unknown fluticasone 232 mcg-salmeterol 14 1 inh INHALATION BID #1 ea 01/03/21 05/30/21 Unknown mcg/actuation breath activated powdr gemcitabine [Gemzar] 1 dose IV WK 02/14/21 05/30/21 Unknown ondansetron HCl 8 mg tablet 8 mg PO Q12H 02/22/21 05/30/21 Unknown sacubitril 24 mg-valsartan 26 mg 1 tab PO BID #180 tab 02/22/21 05/30/21 Unknown tablet carvedilol 12.5 mg tablet 12.5 mg PO BID #180 tab 03/21/21 05/30/21 Unknown benzonatate 100 mg capsule 200 mg PO TID PRN #60 cap 03/28/21 05/30/21 Unknown Active Medications Generic Name Dose Route Start Last Admin Trade Name Freq PRN Reason Stop Dose Admin Hydromorphone HCl 0.25 mg 05/30/21 14:45 05/30/21 16:05 Hydromorphone Inj 0.5 Mg/0.5 Ml Syr IV 06/13/21 14:44 0.25 mg Q6H PRN Administration Pain Magnesium Sulfate/Dextrose 1 gm in 100 mls @ 50 mls/hr 05/30/21 14:00 05/30/21 17:10 Magnesium Sulfate / D5w IV 05/30/21 19:59 50 mls/hr Q2H PEREZ Administration Past Medical History Medical History Acute pancreatitis Cardiomyopathy Congenital hypoplasia of lung Left Heart failure with reduced ejection fraction History of breast cancer History of uterine fibroid Metastatic breast cancer (~2019) Mixed hyperlipidemia Morbid obesity with BMI of 45.0-49.9, adult Prediabetes Reactive airway disease Past Family History Family History Mother Breast cancer Pancreatic cancer Father Heart disease Cardiac arrhythmia Grandmother (Paternal) Breast cancer Family/Other Ovarian cancer Denies family history of Prostate cancer Myocardial infarction Colorectal cancer Past Surgical History Surgical History History of breast reconstruction (~2011) Mack, 2 stage [employer] Worker/implant [place] smooth round high profile gel 750 cc Ref# [id number] LOT# [id number] SN# [id number] Date of permanent prosthesis placement: 08/12/2013 History of section History of mastectomy, total Hx of cardiac cath Social History Smoking Status: Never smoker Hx Alcohol Use: Yes Alcohol type: wine alcohol intake frequency: a few times a month Hx Substance Use: No Physical Exam Vital Signs Last Vital Signs Temp 36.9 C 05/30/21 09:15 Pulse 85 05/30/21 14:30 Resp 17 05/30/21 15:01 BP 77/61 L 05/30/21 15:01 Pulse Ox 95 05/30/21 15:01 Testing Laboratory Results 05/30/21 10:20 05/30/21 10:20 Electrocardiogram Date: 04/27/21 SR with PVCs, rate 83, left axis deviation Echocardiogram Date: 05/10/21 EF: 45-50 LV Function: dysfunctional (global hypokinesis) RWMA: + hypokinetic (global) Other Findings: + LVH (mild conentric) Valvular Disease: + no significant valvular disease Other Testing CLINICAL HISTORY: Diffuse abdominal pain with nausea and vomiting . History of breast cancer COMPARISON STUDY: No previous studies for comparison. CT DOSE: 1520.68 mGy.cm TECHNIQUE: Standard CT of the Abdomen and Pelvis was performed with IV contrast. A dose lowering technique was utilized adhering to the principles of ALARA. Contrast Volume: Optiray 320, 94 ml. The patient did not receive oral contrast. FINDINGS: Lung base: The right lung is clear. Bullous disease is seen involving the left lower lobe. This also pleural thickening at the left lung base. Abdominal cavity and pancreas there is: There is no evidence for abdominal mass, adenopathy or gross ascites. There is diffuse edema present involving the pancreas characteristic of acute, diffuse pancreatitis. Peripancreatic inflammatory changes are seen. Fluid is present within the adjacent mesentery with extension into both paracolic gutters. No pseudocyst formation is seen. Liver: There is homogeneous fatty attenuation of the liver parenchyma. There is heterogeneous nodular enhancement of a lesion within the right lobe of the liver anteriorly measuring approximately 2.5 cm. This is most characteristic of a hemangioma. No other enhancing lesions are seen. Spleen: There is homogeneous attenuation of the splenic parenchyma. There is no enhancing mass lesion. Gall Bladder: The gallbladder is distended with cholelithiasis. No evidence for wall thickening or pericholecystic edema is seen. Adrenal glands: The adrenal glands are normal in size and attenuation. There is no evidence for enhancing mass lesion. Kidneys: There is homogeneous attenuation of the renal parenchyma bilaterally. There is no evidence for renal calculus or hydronephrosis. There is no evidence for enhancing mass. Bowel: The bowel loops are normally placed within the abdomen and pelvis without evidence for dilatation or obstruction. There is no evidence for mass lesion. There are no inflammatory changes present. There is no evidence for free air. The appendix is not visualized. Bladder: The bladder is within normal limits with no evidence for focal mass, calculus or diverticulum. : There is no evidence for pelvic mass or adenopathy. There is no evidence for pelvic ascites. Vasculature: There is no evidence for aneurysmal dilatation of the abdominal aorta. Osseous structures: There is no acute osseous pathology. Degenerative changes are seen within the spine. IMPRESSION: 1. Acute pancreatitis with peripancreatic inflammatory changes and mesenteric edema present. 2. Fatty infiltration of the liver with findings characteristic of a hemangioma. 3. Cholelithiasis with no CT evidence for acute cholecystitis. 4. Additional nonacute findings are delineated above. ACT 112: Negative or not required by law. Electronically signed by: Marc Obrien M.D. 05/30/2021 11:32 AM
[2021-05-30] MEDS ORDERED: POLYETHYLENE (MIRALAX) 17 GM PACK PO PRN (20:46)
[2021-05-30] MEDS ORDERED: ACETAMINOPHEN 325 MG TAB PO PRN (20:46)
[2021-05-30] MEDS ORDERED: ALBUTEROL HFA 8 GM INHALER INH PRN (21:17)
[2021-05-30] MEDS: ONDANSETRON INJ 2 MG/ML 2 ML VIAL IV PRN (21:28)
[2021-05-30 21:32] LABS: Appearance Urine Cloudy (Clear); Bacteria Urine Automated Negative (Negative); Blood Urine Negative (Negative); Color Urine Orange; Glucose Urine UA Negative (Negative); Ketones Urine Negative (Negative); Leukocyte Esterase Urine 1+ (Negative); Nitrite Urine Positive (Negative); Protein Urine Trace (Negative); RBC Urine Automated 0-4 /hpf (0-4); Specific Gravity Urine > 1.045 (1.000-1.030); Urobilinogen Urine Negative (Negative); WBC Urine Automated >30 /hpf (0-5)
[2021-05-30 21:42] LABS: Bilirubin Urine 1+ (Negative)
[2021-05-30] MEDS ORDERED: PNEUMOCOCCAL POLYSACCHARIDES 25 MCG/0.5 ML VIAL/SYR IM ONE (21:49)
[2021-05-30] MEDS ORDERED: FLUARIX QUADRIVALENT 0.5 ML SYR IM ONE (21:49)
[2021-05-30] MEDS: carvediloL 12.5 MG TAB PO SCH (23:03)
[2021-05-30] MEDS ORDERED: HYDROmorphone INJ 0.5 MG/0.5 ML SYR IV STA (23:08)
[2021-05-30] MEDS ORDERED: LACTATED RINGER'S 750 ML IV SCH (23:15)
[2021-05-30] MEDS: PIPERACILLIN/TAZOBACTAM 4.5 GM in DEXTROSE 5% 100 ML IV SCH (23:41)
[2021-05-30] MEDS: HEPARIN SOD 5,000 UNIT/0.5 ML VIAL SQ SCH (23:41)
[2021-05-30] MEDS: VALSARTAN/SACUBITRIL 26/24MG TAB PO SCH (23:42)
[2021-05-31] MEDS: HYDROmorphone INJ 0.5 MG/0.5 ML SYR IV PRN ×2 (02:09→23:03)
[2021-05-31] MEDS ORDERED: ONDANSETRON 4 MG OD TAB PO STA (02:34)
[2021-05-31] MEDS ORDERED: HYDROmorphone INJ 0.5 MG/0.5 ML SYR IV STA (04:07)
[2021-05-31] MEDS: PIPERACILLIN/TAZOBACTAM 4.5 GM in DEXTROSE 5% 100 ML IV SCH ×3 (06:12→23:45)
[2021-05-31 06:43] LABS: Hematocrit (blood only) 41.2 % (37-47); Hemoglobin 13.2 g/dL (12.0-16.0); Mean Corpuscular Hemoglobin 33.6 pg (25-34); Mean Corpuscular Volume 104.8 fL (80-100); Mean Platelet Volume 10.5 fL (7.4-10.4); Platelet Count 111 K/uL (130-400); RDW Coefficient of Variation 15.8 % (11.5-14.5); RDW Standard Deviation 61.4 fL (36.4-46.3); Red Blood Count 3.93 M/uL (4.2-5.4); White Blood Count 35.35 K/uL (4.8-10.8)
[2021-05-31 06:53] LABS: Basophils # (auto) 0.02 K/uL (0-0.2); Basophils % (auto) 0.1 %; Eosinophils # (auto) 0.01 K/uL (0-0.5); Immature Granulocytes # (auto) 0.18 K/uL (0.00-0.02); Immature Granulocytes % (auto) 0.5 %; Lymphocytes # (auto) 1.09 K/uL (1.2-3.4); Lymphocytes % (auto) 3.1 %; Monocytes # (auto) 2.12 K/uL (0.11-0.59); Neutrophils # (auto) 31.93 K/uL (1.4-6.5); Neutrophils % (auto) 90.3 %
[2021-05-31 07:07] LABS: Albumin Level 2.1 gm/dl (3.4-5.0); Bilirubin Direct 1.1 mg/dl (0-0.2); Bilirubin,Total 2.5 mg/dl (0.2-1.0); Calcium 7.5 mg/dl (8.5-10.1); Creatinine Clr Calc Pharmacy 48.3 ml/min; Est GFR (African American) 39.5 ml/min; Est GFR (Non-African American) 34.1 ml/min; Magnesium 2.1 mg/dl (1.7-2.4); Potassium 4.8 mmol/L (3.5-5.1); Total Protein 5.2 gm/dl (6.0-8.3)
[2021-05-31] MEDS ORDERED: ACETAMINOPHEN 1,000 MG/100 ML VIAL IV PRN (07:51)
[2021-05-31] MEDS ORDERED: HYDROmorphone INJ 1 MG/ML SYRINGE IV PRN (07:51)
[2021-05-31] MEDS ORDERED: INDOMETHACIN 50 MG SUPP PR ONE (08:08)
[2021-05-31] MEDS: ONDANSETRON INJ 2 MG/ML 2 ML VIAL IV PRN ×2 (09:00→23:29)
[2021-05-31] MEDS: carvediloL 12.5 MG TAB PO SCH (09:04)
[2021-05-31] MEDS: FLUTICASONE/VILANTEROL 100/25MCG 14 PUFFS/INHALER INH SCH (09:05)
[2021-05-31] MEDS: VALSARTAN/SACUBITRIL 26/24MG TAB PO SCH (09:06)
[2021-05-31] MEDS: HEPARIN SOD 5,000 UNIT/0.5 ML VIAL SQ SCH (09:08)
--- NOTE | 2021-05-31 09:11 | Gastrointestinal Consultation ---
Date of Consultation May 31, 2021 Supervising Physician Co-Signing Physician Notes I performed a history and physical examination of the patient today, including specifically on physical exam - soft abdomen. I have discussed the patient's management with the advanced practitioner. Please refer to the nurse practitioner's note for the documented findings and plan of care. EUS/ERCP today. History of Present Illness Reason for Consultation: Pancreatitis, cholelithiasis Requesting Physician: Dr. Tariq De La Rosa Attending Physician: Dr. Barber Mckeon History of Present Illness Pt is a 51 yo female w hx of breast ca w mets to lymph nodes, brain, bone, cardiomyopathy (EF 45-50%), reactive airway disease, who presented yesterday w c/o abd pain and n/v x few days. She has associated chills but no fever, also no signs of coffee ground emesis/hematemesis, bowel habit changes. She is in between her chemo session, last agent was causing too much n/v and was stopped 4 weeks ago. She received her chemo treatments in [place]. On eval, noted she has leukocytosis w increasing WBC on Zosyn IV. Cr rising despite IVF resuscitation w LR. LFTs, lipase increased. CT abd/pelvis w signs of pancreatitis, gallstones w/o obvious signs of cholecystitis. ASSESSMENT AND PLAN: Pt is a 51 yo female w hx of metastatic breast ca seen for suspected gallstone pancreatitis. - Keep NPO - Zosyn IV - F/U blood cx - Cancel MRCP, plan for EUS/ERCP today in OR - Given rise in Cr, will increase IVF rate LR @150ml/hr, also will ask hospitalist to hold BP meds Allergies Allergy/AdvReac Type Severity Reaction Status Date / Time adhesive Allergy Rash Verified 04/27/21 14:42 No Known Drug Allergies Allergy Verified 04/27/21 14:42 Home Medications Medication Instructions Recorded Confirmed Type sumatriptan succinate 25 mg tablet 25 mg PO Q2H PRN 01/08/19 05/30/21 History (Imitrex) albuterol sulfate 90 mcg/actuation 2 puffs INH QID PRN #18 gm 10/17/19 05/30/21 Rx aerosol inhaler (ProAir HFA) zoledronic acid 4 mg/5 mL 4 mg IV Q3MO ml 12/31/19 05/30/21 History intravenous solution bumetanide 1 mg tablet 1 mg PO BID #180 tab 08/04/20 05/30/21 Rx fluticasone 232 mcg-salmeterol 14 1 inh INHALATION BID #1 ea 01/03/21 05/30/21 Rx mcg/actuation breath activated powdr gemcitabine [Gemzar] 1 dose IV WK 02/14/21 05/30/21 History ondansetron HCl 8 mg tablet 8 mg PO Q12H 02/22/21 05/30/21 History sacubitril 24 mg-valsartan 26 mg 1 tab PO BID #180 tab 02/22/21 05/30/21 Rx tablet carvedilol 12.5 mg tablet 12.5 mg PO BID #180 tab 03/21/21 05/30/21 Rx benzonatate 100 mg capsule 200 mg PO TID PRN #60 cap 03/28/21 05/30/21 Rx Patient History Medical History Acute pancreatitis Cardiomyopathy Congenital hypoplasia of lung Left Heart failure with reduced ejection fraction History of breast cancer History of uterine fibroid Metastatic breast cancer (~2019) Mixed hyperlipidemia Morbid obesity with BMI of 45.0-49.9, adult Prediabetes Reactive airway disease Surgical History History of breast reconstruction (~2011) Mack, 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 Bow smooth round high profile gel 750 cc Ref# [id number] LOT# [id number] # [id number] Date of permanent prosthesis placement: 08/12/2013 History of section History of mastectomy, total Hx of cardiac cath Family History Mother Breast cancer Pancreatic cancer Father Heart disease Cardiac arrhythmia Grandmother (Paternal) Breast cancer Family/Other Ovarian cancer Denies family history of Prostate cancer Myocardial infarction Colorectal cancer Social History Smoking Status: Never smoker Second Hand Exposure: No; Do You Dip or Chew Tobacco: No; Tobacco Cessation Education Requested by Patient: No Hx Alcohol Use: Yes Alcohol type: wine Hx Substance Use: No Preferred Language: Guinean Communication Ability: Effective Visual Impairment: Limited Hearing Ability: Normal Extrusion Operator Required: No Beliefs That Will Affect Care: None Current Living Situation: Family current occupational status: employed 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 Other Information That Helps Us Care for You: No Feels Safe at Home: Yes Safety Concerns: Feels Safe At This Time Dental Care, Regularly: Yes Seatbelt Use: always Sunscreen Use: Yes Assistive Devices: Cane and Glasses Review of Systems Review of Systems: All systems reviewed & are unremarkable except as noted in HPI & below Physical Exam Constitutional: WD/WN, vitals as above + ill appearing, well groomed and cooperative Eyes: PERRL, conjunctivae normal, anicteric sclerae ENMT: external ear and nose normal, oropharynx normal Respiratory: normal respiratory effort, lungs clear to auscultation Cardiovascular: RRR, no murmur, no edema Gastrointestinal (Abdomen): soft, hypoactive BS, TTP mostly on upper areas Skin: no rashes, warm and dry no jaundice Psychiatric: A+Ox3, euthymic affect Appears lethargic, forgetful Lymphatic: no lymphedema Results & Data ([facility]) Vital Signs (Past 12 Hours) Vital Signs Temp Pulse Resp BP Pulse Ox Pulse Ox 05/31/21 07:52 37.4 C 84 18 108/67 93 05/30/21 23:30 90 05/30/21 22:49 36.3 C L 84 14 108/73 93
[2021-05-31] MEDS: LACTATED RINGER'S 1,000 ML IV SCH ×2 (09:14→21:22)
[2021-05-31] MEDS ORDERED: LACTATED RINGER'S 500 ML IV ONE ×2 (12:30→21:48)
--- NOTE | 2021-05-31 12:36 | Hospitalist Progress Note ---
Date of Service May 31, 2021 Assessment & Plan (1) Sepsis: Plan: - SEVERE SEPSIS manifested by hypotension, tachycardia, +procal, KITA, leukocytosis with gallstone pancreatitis who is developing cholangitis - WBC climbing, today 35,000 up from 21,000 with left shift - IVF hydration needs to be increased, 500 cc bolus has been ordered and will run fluids at minimum rate of 150 cc/hr - Continue Zosyn - Place ALL BP meds on hold - She is for ERCP today, I have called and d/w OR engine assembly supervisor, pt will be moved up and done first around 1pm - She will be transferred to PCU for closer monitoring - At this time, she is asymptomatic regarding her hypotension which is likely multifactoral: lower baseline, pain medications, and infection - Continue to monitor closely, ultimately, with gallstone removal, pt's overall clinical picture should improve (2) Cholangitis: Plan: - See #1 (3) Pancreatitis, gallstone: Plan: - Diffuse abdominal pain with Lipase 3093. CT of the abdomen showed the gallbladder consistent with cholelithiasis. No evidence for wall thickening or pericholecystic edema seen. Acute pancreatitis with peripancreatic inflammatory changes and mesenteric edema is present. - TB 2.5 this AM up from 2.4, DB 1.1 - Blood cultures pending. - IV Zosyn 4.5g Q6h. - Continue LR IVF - Dilaudid 0.25mg Q6h prn ordered, change to 0.5mg IV q4h and add IV APAP for better pain control - MRCP ordered but not performed, uncertain why - GI consulted, for ERCP today, she remains NPO - Appreciate GI assistance (4) Cholelithiases: Plan: -As above. (5) UTI (urinary tract infection): Plan: - She is empirically on Zosyn - Culture data noted no growth, but would treat given her chronic immune suppression with chemo and breast CA - UA nitrite positive with 1+ leukocyte esterase and >30 wbc (6) Acute kidney injury: Plan: - Secondary to severe sepsis - Continue aggressive IVF hydration - Continue to monitor renal fxn - Hold entresto as outlined above (7) Heart failure with reduced ejection fraction: Plan: -Echo from 05/10/21 reveals EF 45-50%. Left ventricular systolic function is borderline reduced, borderline hypokinesis of left ventricle. -Will hold Bumex for now as patient is hypovolemic. -Continue to monitor BMP daily as well as for signs of volume overload. -Hold Entresto and Coreg due to #1 (8) Cardiomyopathy: Plan: -Idiopathic versus chemotherapy-induced. -As above. (9) Hypomagnesemia: Plan: - Mg++ 1.4. - Repleted on admit with Mag Sulfate, total 3g - Repeat Mg level this AM normal at 2.1 (10) Metastatic breast cancer: Plan: -Patient reports her last chemo treatment approx 1 month ago. (11) Reactive airway disease: Plan: -Continue albuterol inhaler. -Continue fluticasone salmeterol inhaler. -Monitor SpO2. (12) DVT prophylaxis: Plan: -SCDs ordered. -Heparin SQ q12 (13) Morbid obesity with BMI of 40.0-44.9, adult: Plan: For OR today with [facility] for bile stone extraction via ERCP. Continue antibiotics, fluids, pain control, antiemetics. Hold BP meds. Transfer to PCU for closer monitoring in setting of severe sepsis. Above plan of care has been d/w Dr. De La Rosa. Admission and Anticipated Discharge Date Admission Date: May 30, 2021 Subjective Pt seen on rounds today. She reports ongoing RUQ pain that is poorly controlled at this point. RN requested something more for pain this morning and subsequently her Dilaudid was increased and IV APAP was given. She denies cp, dyspnea. She has no nausea or vomiting currently. She's been NPO since admission in preparation for ERCP which is to be done today. Notified this afternoon that pt's BP 80s/50s, pt asymptomatic and she and her claim that she chronically has lower blood pressure, typically 90s systolic. They have dis cussed stopping her entresto in the past d/t marginal BPs but hasn't been done. GI BALLOON SANDER concerned re: development of cholangitis, she increased IVF rate and placed BP meds on hold. Review of Systems Review of Systems: Constitutional: Reports chills, no objective fever, myalgias, night sweats Eyes: No diplopia, no worsening or blurred vision ENT: normal hearing, no trouble swallowing Respiratory: No cough, sputum, dyspnea at rest or on exertion Cardiovascular: No chest pain, tightness or palpitations Abdomen: Reports diffuse abdomial pain with nausea and vomiting; no diarrhea or constipation Musculoskeletal: No joint pain, calf pain, swelling Neurologic: No weakness, numbness/tingling, or balance problems Psychiatric: No anxiety or depression Skin: No rash or itch Physical Exam Physical Exam: GENERAL: 58 yo obese WF who appears ill. NAD. LUNGS: Clear to auscultation bilaterally. No W/R/R. CARDIOVASCULAR: Regular rate and rhythm. No M/G/R. No JVD. ABDOMEN: Soft, nondistended, markedly TTP in RUQ. BS hypoactive x 4 quad. EXTREMITIES: No edema. Non-tender. Peripheral pulses +2/4. NEUROLOGIC: A&O x3. PSYCHIATRIC: Cooperative. Appropriate mood and affect. SKIN: warm, dry, intact. I would argue she does appear slightly jaundiced. Results & Data Results & Data ([facility]) Vital Signs (Past 12 Hours) Vital Signs Temp Pulse Resp BP Pulse Ox 05/31/21 11:59 85/53 L 05/31/21 11:20 36.7 C 88 16 93 05/31/21 07:52 37.4 C 84 18 108/67 93 Laboratory Results 05/31/21 06:02 05/31/21 06:02 Lipase 1745 down from 3193 on admission PG Care Time/CCT Total # of Minutes Spent Total Time Spent with Patient: Total time spent is greater than 50% in coordination of care (as documented) at patient's floor/unit and/or counseling patient: Coding Level of Care Code 96068 Subseq Hosp Care Lvl 3 Diagnoses Pancreatitis, gallstone K85.10 Cholelithiases K80.20 Heart failure with reduced ejection fraction I50.20 Cardiomyopathy I42.9 Hypomagnesemia E83.42 Metastatic breast cancer C50.919 Reactive airway disease J45.909 DVT prophylaxis Z29.9 Sepsis A41.9 Morbid obesity with BMI of 40.0-44.9, adult E66.01; Z68.41 Cholangitis K83.09 UTI (urinary tract infection) N39.0 Acute kidney injury N17.9
[2021-05-31] MEDS ORDERED: LACTATED RINGER'S 1,000 ML IV ONE (13:23)
[2021-05-31] MEDS ORDERED: ALBUMIN HUMAN 5% 12.5 GM/250 ML VIAL IV ONE (13:29)
[2021-05-31] MEDS ORDERED: MIDAZOLAM HCL 1 MG/ML 2ML VIAL ONE (13:34)
[2021-05-31] MEDS ORDERED: SUCCINYLCHOLINE CHLORIDE 20 MG/ML 10 ML VIAL IV ONE (13:34)
[2021-05-31] MEDS ORDERED: fentaNYL citrate 100 MCG/2 ML VIAL ONE ×2 (13:34→15:02)
[2021-05-31] MEDS ORDERED: LIDOCAINE 2% 2 ML VIAL/AMP(20MG/ML) INFIL ONE (13:34)
[2021-05-31] MEDS ORDERED: PROPOFOL IV EMULSION 10 MG/ML 20 ML VIAL IV ONE (13:34)
[2021-05-31] MEDS ORDERED: fentaNYL citrate 100 MCG/2 ML VIAL IV PRN (13:53)
[2021-05-31] MEDS ORDERED: ONDANSETRON INJ 2 MG/ML 2 ML VIAL IV PRN (13:53)
[2021-05-31] MEDS ORDERED: ePHEDrine sulfate 50 MG/ML AMP IV PRN (13:53)
[2021-05-31] MEDS ORDERED: ATROPINE SULFATE 0.1 MG/ML 10ML SYR IV PRN (13:53)
[2021-05-31] MEDS ORDERED: PHENYLEPHRINE HCL 10 MG/ML VIAL ONE (14:24)
[2021-05-31] MEDS ORDERED: VASOPRESSIN 20 UNIT/ML VIAL ONE (14:24)
--- NOTE | 2021-05-31 15:23 | Operative Report ---
Post Operative Report Pre & Post Diagnosis Operation Date: 05/31/21 09:05 Pre-Op Diagnosis: PANCREATITIS I identified the patient and participated in the time-out.: Yes Procedure Operation Date: 05/31/21 09:05 Actual Procedures p Esophagogastroduodenoscopy - Barber Mckeon MD s Endoscopic Ultrasonography Upper - Barber Mckeon MD p Endoscopic Retrograde Cholangiopancreato - Barber Mckeon MD Surgeon Barber Mckeon MD Sleep Lab Technician None Estimated Blood Loss 0 Findings See Below (cholangitis, CBD stent placed) Specimens None Description of Procedure EUS/ERCP I attest to the content of the Intraoperative Record and any orders documented therein. Any exceptions are noted below.
--- NOTE | 2021-05-31 15:34 | GI REPORT ---
Patient Name: Roma Molina Procedure Date: 05/31/2021 1:27 PM Date of : 1970 Admit Type: Inpatient Age: 51 Gender: Female Attending MD: Barber Mckeon MD Procedure: Upper GI endoscopy Providers: Barber Mckeon MD Referring MD: Tariq De La Rosa Indications: Abdominal pain Medicines: General Anesthesia Complications: No immediate complications. Estimated Blood Loss: Estimated blood loss: none. Procedure: Pre-Anesthesia Assessment: - Prior to the procedure, a History and Physical was performed, and patient medications, allergies and sensitivities were reviewed. The patient's tolerance of previous anesthesia was reviewed. - The risks and benefits of the procedure and the sedation options and risks were discussed with the patient. All questions were answered and informed consent was obtained. - Patient identification and proposed procedure were verified prior to the procedure by the physician and the nurse. The procedure was verified in the procedure room. - Pre-procedure physical examination revealed no contraindications to sedation. After obtaining informed consent, the endoscope was passed under direct vision. Throughout the procedure, the patient's blood pressure, pulse, and oxygen saturations were monitored continuously. The Endoscope was introduced through the mouth, and advanced to the second part of duodenum. The upper GI endoscopy was accomplished without difficulty. The patient tolerated the procedure well. Findings: The examined esophagus was normal. No gross lesions were noted in the entire examined stomach. The duodenal bulb and second portion of the duodenum were normal. Impression: - Normal esophagus. - No gross lesions in the stomach. - Normal duodenal bulb and second portion of the duodenum. Recommendation: - Perform an upper endoscopic ultrasound (UEUS) today. Barber Mckeon MD 05/31/2021 3:33:59 PM This report has been signed electronically. Note Initiated On: 05/31/2021 1:27 PM Number of Addenda: 0 I attest to the content of the Intraoperative Record and orders documented therein, exceptions below {[id number]}
--- NOTE | 2021-05-31 15:41 | GI REPORT ---
Patient Name: Roma Molina Procedure Date: 05/31/2021 1:26 PM Date of : 1970 Admit Type: Inpatient Age: 51 Gender: Female Attending MD: Barber Mckeon MD Procedure: Upper EUS Providers: Barber Mckeon MD Referring MD: Tariq De LaR osa Indications: Elevated liver enzymes, Suspected choledocholithiasis, Acute pancreatitis Medicines: General Anesthesia Complications: No immediate complications. Estimated Blood Loss: Estimated blood loss: none. Procedure: Pre-Anesthesia Assessment: - Prior to the procedure, a History and Physical was performed, and patient medications, allergies and sensitivities were reviewed. The patient's tolerance of previous anesthesia was reviewed. - The risks and benefits of the procedure and the sedation options and risks were discussed with the patient. All questions were answered and informed consent was obtained. - Patient identification and proposed procedure were verified prior to the procedure by the physician and the nurse. The procedure was verified in the procedure room. - Pre-procedure physical examination revealed no contraindications to sedation. After obtaining informed consent, the endoscope was passed under direct vision. Throughout the procedure, the patient's blood pressure, pulse, and oxygen saturations were monitored continuously. The scope was introduced through the mouth, and advanced to the second part of duodenum. The upper EUS was accomplished without difficulty. The patient tolerated the procedure well. Findings: ENDOSONOGRAPHIC FINDING: : There was no sign of significant endosonographic abnormality in the ampulla. No masses were identified. A small amount of hyperechoic material consistent with sludge was visualized endosonographically in the common bile duct. There was dilation in the common bile duct which measured up to 7 mm. There a possible distal CBD stricture. One stone and sludge was visualized endosonographically in the gallbladder. It was hyperechoic and characterized by shadowing. Pancreatic parenchymal abnormalities were noted in the entire pancreas. These consisted of diffuse echogenicity and lobularity. There was abnormal echogenicity in the entire examined liver. This area was hyperechoic. There was no sign of significant endosonographic abnormality involving the celiac trunk. Impression: - There was no sign of significant pathology in the ampulla. - Hyperechoic material consistent with sludge was visualized endosonographically in the common bile duct. - There was dilation in the common bile duct which measured up to 7 mm. - One stone and sludge was visualized endosonographically in the gallbladder. - Pancreatic parenchymal abnormalities consisting of diffuse echogenicity and lobularity were noted in the entire pancreas likely related to the underlying acute pancreatitis. - There was abnormal echogenicity in the entire examined liver suggestive of fatty infiltration. - The celiac trunk was endosonographically normal. Recommendation: - Perform an ERCP today. Barber Mckeon MD 05/31/2021 3:40:33 PM This report has been signed electronically. Note Initiated On: 05/31/2021 1:26 PM Number of Addenda: 0 I attest to the content of the Intraoperative Record and orders documented therein, exceptions below {[id number]}
--- NOTE | 2021-05-31 15:49 | GI REPORT ---
Patient Name: Roma Molina Procedure Date: 05/31/2021 1:26 PM Date of : 1970 Admit Type: Inpatient Age: 51 Gender: Female Attending MD: Barber Mckeon MD Procedure: ERCP Providers: Barber Mckeon MD Referring MD: Tariq De La Rosa Indications: Suspected ascending cholangitis, Gallstone associated acute pancreatitis Medicines: General Anesthesia Complications: No immediate complications. Estimated Blood Loss: Estimated blood loss: none. Procedure: Pre-Anesthesia Assessment: - Prior to the procedure, a History and Physical was performed, and patient medications, allergies and sensitivities were reviewed. The patient's tolerance of previous anesthesia was reviewed. - The risks and benefits of the procedure and the sedation options and risks were discussed with the patient. All questions were answered and informed consent was obtained. - Patient identification and proposed procedure were verified prior to the procedure by the physician and the nurse. The procedure was verified in the procedure room. - Pre-procedure physical examination revealed no contraindications to sedation. After obtaining informed consent, the scope was passed under direct vision. Throughout the procedure, the patient's blood pressure, pulse, and oxygen saturations were monitored continuously. The Duodenoscope was introduced through the mouth, and advanced to the duodenum and used to inject contrast into the bile duct. The ERCP was accomplished without difficulty. The patient tolerated the procedure well. Findings: The technical marketing engineer film was normal. The esophagus was successfully intubated under direct vision. The scope was advanced to a normal major papilla in the descending duodenum without detailed examination of the pharynx, larynx and associated structures, and upper GI tract. The upper GI tract was grossly normal. A 0.035 inch angled standard wire was passed into the ventral pancreatic duct. The ventral pancreatic duct was then deeply cannulated. Contrast was injected. One 5 Fr by 9 cm plastic pancreatic stent with a single external pigtail and no internal flaps was placed into the ventral pancreatic duct. Clear fluid flowed through the stent. The stent was in good position. A biliary pre-cut sphincterotomy was made with a monofilament needle knife over a pancreatic stent using ERBE electrocautery. There was no post-sphincterotomy bleeding. A 0.025 inch x 270 cm angled Visiglide wire was passed into the biliary tree. The Fusion OMNI sphincterotome was passed over the guidewire and the bile duct was then deeply cannulated. Contrast was injected. Opacification of the entire biliary tree was successful. The maximum diameter of the ducts was 8 mm. The biliary orifice was stenotic. This appeared benign. The biliary sphincterotomy was extended with a monofilament traction (standard) sphincterotome using ERBE electrocautery. There was no post-sphincterotomy bleeding. The biliary tree was swept with a 15 mm balloon starting at the bifurcation. Sludge was swept from the duct. One 10 Fr by 8 cm plastic biliary stent with a single external flap and a single internal flap was placed into the common bile duct. Bile flowed through the stent. The stent was in good position. Impression: - Benign biliary papillary stenosis likely related to recent passage of a gallstone causing an element of biliary obstruction. - A biliary sphincterotomy was performed. - The biliary tree was swept and thick black sludge was found. - One plastic biliary stent was placed into the common bile duct. - One plastic pancreatic stent was placed into the ventral pancreatic duct. Recommendation: - [facility]. - Refer to a surgeon for cholecystectomy. - Continue IV ABx. - Repeat ERCP in 6 weeks to remove stent. COMMENT: It is not very clear if the source of her severe sepsis is the biliary tree hence please expand the work up to include all other sources, specifically if she does not improve after biliary stenting. Barber Mckeon MD 05/31/2021 3:48:30 PM This report has been signed electronically. Note Initiated On: 05/31/2021 1:26 PM Number of Addenda: 0 I attest to the content of the Intraoperative Record and orders documented therein, exceptions below {[id number]}
[2021-05-31] MEDS ORDERED: STAT IV Infusion **Titration per Protocol STA (16:11)
--- NOTE | 2021-05-31 16:12 | Fluoroscopy Report ---
[place] ERCP biliary ductal CLINICAL HISTORY: EXPLORE DUCTS COMPARISON STUDY: CT of the abdomen and pelvis May 30, 2021. FLUOROSCOPY TIME: 57 seconds. FLUOROSCOPIC IMAGES: 7 FINDINGS: Fluoroscopy was provided during ERCP. These images demonstrate cannulation of the common bi le duct with balloon sweep through the common bile duct. Filling defects within the common bile duct reflect calculi or gas bubbles. Final image demonstrates placement of a common bile duct stent. IMPRESSION: Fluoroscopy provided during ERCP with placement of a common bile duct stent. ACT 112: Negative or not required by law. Electronically signed by: Srinivasa Lui M.D. 05/31/2021 4:11 PM
[2021-05-31] MEDS ORDERED: Standard Conc 16mcg/mL; 8mg in 500mL IV SCH (16:15)
[2021-05-31] MEDS: NOREPINEPHRINE/D5W 8 MG/508 ML BAG IV SCH (16:30)
[2021-05-31] MEDS ORDERED: DAPTOmycin 475 MG in SYRINGE 0 ML IV ONE (17:15)
--- NOTE | 2021-05-31 17:40 | Anesthesiology Progress Note ---
Date of Service May 31, 2021 Anesthesia Post Procedure Vital Signs Vital Signs: Temp Pulse Resp BP BP BP Pulse Ox 05/31/21 12:57 36.6 C 93 H 20 69/50 L 79/51 L 93 05/31/21 11:59 85/53 L 05/31/21 11:20 36.7 C 88 16 93 05/31/21 07:52 37.4 C 84 18 108/67 93 05/30/21 23:30 05/30/21 22:49 36.3 C L 84 14 108/73 93 05/30/21 20:30 37 C 104 H 14 94/65 L 90 05/30/21 19:30 24 95/68 L 95 05/30/21 19:00 15 101/64 94 05/30/21 18:31 15 95 05/30/21 18:30 15 95 05/30/21 18:02 16 94 05/30/21 18:01 18 67/44 L 95 05/30/21 18:00 20 96 Pulse Ox 05/31/21 12:57 05/31/21 11:59 05/31/21 11:20 05/31/21 07:52 05/30/21 23:30 90 05/30/21 22:49 05/30/21 20:30 05/30/21 19:30 05/30/21 19:00 05/30/21 18:31 05/30/21 18:30 05/30/21 18:02 05/30/21 18:01 05/30/21 18:00 Pain Intensity Bilateral Abdomen: Pain Intensity: 9 Transfer of Care Handoff Completed per policy Notes Mental Status: alert / awake / arousable Patient Amnestic to Procedure: Yes Nausea / Vomiting: adequately controlled Pain: adequately controlled Airway Patency, RR, SpO2: stable & adequate BP & HR: see Notes below Hydration State: see Notes below Anesthetic Complications: no major complications apparent Notes: patient remains septic and hypotensive in pacu. mental status is sleepy but oriented. arterial line placed in pacu and norepinephrine started to keep map>60. We will transfer her to ICU, and I have spoken with the knitting machine operator who will accept the patient.
[2021-05-31] MEDS ORDERED: ICU PROTOCOL FOR HYPERGLYCEMIA PRN (17:52)
[2021-05-31] MEDS ORDERED: VANCOMYCIN CONSULT ACTIVE PRN (17:52)
[2021-05-31 18:28] LABS: Allen Test Pos (Pos); Base Excess ABG -5.1 mEq/L (-9-1.8); HCO3 ABG 20 mmol/L (19-24); Oxygen Saturation ABG 95.6 % (90-95); PCO2 ABG 38 mmHg (35-46); PO2 ABG 77 mmHg (80-95); pH ABG 7.34 (7.35-7.45)
[2021-05-31 18:40] LABS: Hematocrit (blood only) 40.6 % (37-47); Hemoglobin 12.8 g/dL (12.0-16.0); Mean Corpuscular Hemoglobin 33.2 pg (25-34); Mean Corpuscular Hgb Conc 31.5 g/dL (32-36); Mean Corpuscular Volume 105.2 fL (80-100); Mean Platelet Volume 10.4 fL (7.4-10.4); Platelet Count 110 K/uL (130-400); RDW Coefficient of Variation 15.9 % (11.5-14.5); RDW Standard Deviation 61.3 fL (36.4-46.3); Red Blood Count 3.86 M/uL (4.2-5.4); White Blood Count 41.28 K/uL (4.8-10.8)
[2021-05-31 18:45] LABS: Calcium 7.2 mg/dl (8.5-10.1); Est GFR (African American) 28.6 ml/min; Est GFR (Non-African American) 24.7 ml/min; Potassium 4.9 mmol/L (3.5-5.1)
[2021-05-31 18:53] LABS: Basophils # (auto) 0.02 K/uL (0-0.2); Immature Granulocytes # (auto) 0.88 K/uL (0.00-0.02); Immature Granulocytes % (auto) 2.1 %; Lymphocytes % (auto) 3.4 %; Monocytes # (auto) 2.34 K/uL (0.11-0.59); Monocytes % (auto) 5.7 %; Neutrophils # (auto) 36.64 K/uL (1.4-6.5); Neutrophils % (auto) 88.8 %
[2021-05-31 18:56] LABS: Albumin Level 2.3 gm/dl (3.4-5.0); Bilirubin Direct 1.8 mg/dl (0-0.2); Bilirubin,Total 3.1 mg/dl (0.2-1.0); Magnesium 1.9 mg/dl (1.7-2.4); Total Protein 5.2 gm/dl (6.0-8.3)
[2021-05-31] MEDS ORDERED: PIPERACILLIN/TAZOBACTAM 3.375 GM in DEXTROSE 5% 100 ML IV STA (19:46)
[2021-05-31] MEDS ORDERED: PIPERACILL/TAZOBAC CONSULT ACTIVE PRN (19:46)
--- NOTE | 2021-05-31 19:48 | Critical Care Consultation ---
Date of Consultation May 31, 2021 Assessment & Plan (1) Septic shock: (2) Cholangitis: (3) KITA (acute kidney injury): (4) Gallstone pancreatitis: (5) Morbid obesity with BMI of 40.0-44.9, adult: 51-year-old female with a history of metastatic breast cancer presenting to the hospital pancreatitis and biliary sepsis. Underwent stent placement today and was found to be in septic shock post procedure. Neurologic: Minimize sedatives given tenuous blood pressure and respiratory status. Pulmonary: Chest x-ray ordered. She is at risk for pulmonary edema. Cardiovascular: Monitor telemetry. EKG and troponins ordered given mild chest pain and history of cardiomyopathy. Maintain mean that her pressures above 65. She does note that she is normally hypertensive with blood pressures in the 90s over 60s, however, she is on carvedilol and Entresto at baseline. Gastrointestinal: N.p.o. presently. Status post ERCP and stent placement. Lipase trending downward. Renal: KITA likely related to ischemic ATN. We will place a Aguilar and monitor urine output. Continue resuscitation with volume. Consider additional albumin given her low oncotic pressure. Infectious disease: Septic shock secondary to biliary sepsis. Blood cultures ordered. Continue broad-spectrum antibiotics. Hematologic: No significant issues at present. Endocrine: We will start stress dose steroids. Lines and tubes: Left brachial arterial line in place. Port-A-Cath in place. VTE prophylaxis: SCDs. CODE STATUS: Full code Family at bedside: Not available at bedside Disposition: ICU. Discussed with overnight ICU JENY and nurse at bedside. I have personally spent 36 minutes of critical care time in the direct management of this patient. This is a life/limb threatening event. This includes time spent evaluating patient, direct bedside care, chart review, placing orders, interpretation of diagnostic studies, discussion with consultants, patient, and family members, as well as other required patient management activities. This time is exclusive of all separately billable procedures, and teaching time and separate from and in addition to any other critical care service time. Thank you for allowing us to participate in the care of this patient. History of Present Illness Reason for Consultation: Septic shock Attending Physician: Tariq De La Rsoa MD History of Present Illness 51-year-old female with a history of metastatic breast cancer to the brain, bone and lymph nodes, cardiomyopathy, hypoplastic left lung and obesity who presented to the hospital due to chills and nausea. She underwent an EUS/ERCP today and postprocedure was found to be hypotensive. She is currently on Levophed via her port. She has a left brachial arterial line placed by anesthesia. She has some mild substernal chest pain. She denies any shortness of breath. She denies any dizziness. She does note that she has problems with her memory at baseline due to history of brain mets and brain surgery. She has a very elevated white count. She is currently on daptomycin and Zosyn. She received 2 L of lactated Ringer's in the OR. Allergies Allergy/AdvReac Type Severity Reaction Status Date / Time adhesive Allergy Rash Verified 04/27/21 14:42 No Known Drug Allergies Allergy Verified 04/27/21 14:42 Home Medications Medication Instructions Recorded Confirmed Type sumatriptan succinate 25 mg tablet 25 mg PO Q2H PRN 01/08/19 05/30/21 History (Imitrex) albuterol sulfate 90 mcg/actuation 2 puffs INH QID PRN #18 gm 10/17/19 05/30/21 Rx aerosol inhaler (ProAir HFA) zoledronic acid 4 mg/5 mL 4 mg IV Q3MO ml 12/31/19 05/30/21 History intravenous solution bumetanide 1 mg tablet 1 mg PO BID #180 tab 08/04/20 05/30/21 Rx fluticasone 232 mcg-salmeterol 14 1 inh INHALATION BID #1 ea 01/03/21 05/30/21 Rx mcg/actuation breath activated powdr gemcitabine [Gemzar] 1 dose IV WK 02/14/21 05/30/21 History ondansetron HCl 8 mg tablet 8 mg PO Q12H 02/22/21 05/30/21 History sacubitril 24 mg-valsartan 26 mg 1 tab PO BID #180 tab 02/22/21 05/30/21 Rx tablet carvedilol 12.5 mg tablet 12.5 mg PO BID #180 tab 03/21/21 05/30/21 Rx benzonatate 100 mg capsule 200 mg PO TID PRN #60 cap 03/28/21 05/30/21 Rx Patient History Medical History (Updated 05/31/21 @ 19:42 by Silvano Xiong MD) Acute pancreatitis KITA (acute kidney injury) Cardiomyopathy Congenital hypoplasia of lung Left Gallstone pancreatitis Heart failure with reduced ejection fraction History of breast cancer History of uterine fibroid Metastatic breast cancer (~2019) Mixed hyperlipidemia Morbid obesity with BMI of 45.0-49.9, adult Prediabetes Reactive airway disease Septic shock Surgical History History of breast reconstruction (~2011) Mack, 2 stage Spare Fixer/implant [place] smooth round high profile gel 750 cc Ref# [id number] LOT# [id number] SN# [id number] Date of permanent prosthesis placement: 08/12/2013 History of section History of mastectomy, total Hx of cardiac cath Family History Mother Breast cancer Pancreatic cancer Father Heart disease Cardiac arrhythmia Grandmother (Paternal) Breast cancer Family/Other Ovarian cancer Denies family history of Prostate cancer Myocardial infarction Colorectal cancer Social History Smoking Status: Never smoker Second Hand Exposure: No; Do You Dip or Chew Tobacco: No; Tobacco Cessation Education Requested by Patient: No Hx Alcohol Use: Yes Alcohol type: wine Hx Substance Use: No Preferred Language: Hebrew Communication Ability: Effective Visual Impairment: Limited Hearing Ability: Normal District Manager Primary Care Sales Required: No Beliefs That Will Affect Care: None marital status: Current Living Situation: Family current occupational status: employed 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 Laying in bed. Eyes: Pupils are equal round and reactive to light. Conjunctivae are normal. Anicteric sclera. Ears nose, mouth and throat: No deformities. Neck: Trachea is midline. Visual inspection is normal. Respiratory: Clear to auscultation bilaterally. No use of accessory muscles. No significant clubbing noted. Cardiovascular: Regular rate and rhythm. No murmurs. No edema. Gastrointestinal: Mild tenderness to palpation. Otherwise soft. Diminished bowel sounds. Musculoskeletal: No cyanosis. Patient is able to move all extremities. Skin: No rashes, warm dry and intact. Neurologic: No obvious focal neurological deficits seen. Psychiatric: Alert and oriented x3 with a euthymic affect. Results & Data Results & Data ([facility]) Vital Signs (Past 12 Hours) Vital Signs Temp Pulse Pulse Resp BP BP Pulse Ox 05/31/21 19:15 101 H 19 97/40 L 93 05/31/21 19:00 95 H 16 80/56 L 94 05/31/21 18:45 96 H 19 70/58 L 95 05/31/21 18:30 89 16 62/44 L 92 05/31/21 18:15 88 15 64/54 L 05/31/21 18:00 93 H 20 70/56 L 05/31/21 17:45 36.8 C 94 H 18 60/44 L 05/31/21 17:30 92 H 22 60/44 L 91 05/31/21 17:20 93 H 19 61/43 L 92 05/31/21 17:10 93 H 17 93 05/31/21 17:00 91 H 21 67/57 L 91 05/31/21 16:50 88 19 92 05/31/21 16:40 86 18 91 05/31/21 16:30 87 19 71/50 L 93 05/31/21 16:20 86 18 70/59 L 93 05/31/21 16:10 82 18 86/52 L 95 05/31/21 16:00 82 16 89/66 L 95 05/31/21 15:50 84 18 82/47 L 95 05/31/21 15:40 36.6 C 93 H 20 68/38 L 93 05/31/21 12:57 36.6 C 93 H 20 69/50 L 79/51 L 93 05/31/21 11:59 85/53 L 05/31/21 11:20 36.7 C 88 16 93 05/31/21 07:52 37.4 C 84 18 108/67 93 Coding Level of Care Code Critical Care 1st 30-74 mins Diagnoses Septic shock A41.9; R65.21 Cholangitis K83.09 KITA (acute kidney injury) N17.9 Gallstone pancreatitis K85.10 Morbid obesity with BMI of 40.0-44.9, adult E66.01; Z68.41 Time Spent (min) 36
[2021-05-31] MEDS ORDERED: PIPERACILLIN/TAZOBACTAM 4.5 GM in DEXTROSE 5% 100 ML IV STA (19:53)
[2021-05-31 20:55] LABS: Anion Gap 11 (3-11); Blood Urea Nitrogen 20 mg/dl (6-23); Calcium 7.1 mg/dl (8.5-10.1); Carbon Dioxide 20 mmol/L (21-32); Chloride 99 mmol/L (98-107); Creatinine Clr Calc Pharmacy 37.2 ml/min; Est GFR (African American) 28.8 ml/min; Est GFR (Non-African American) 24.8 ml/min; Glucose 139 mg/dl (70-99(Fasting)); Potassium 4.8 mmol/L (3.5-5.1); Sodium 130 mmol/L (136-145)
[2021-05-31 21:14] LABS: Troponin I < 0.03 ng/ml (0-0.04)
[2021-05-31] MEDS ORDERED: CALCIUM GLUCONATE 10% 2,000 MG in DEXTROSE 5% 50 ML IV ONE (21:48)
[2021-05-31] MEDS ORDERED: STAT IV STA (21:48)
[2021-05-31] MEDS: HYDROCORTISONE SOD 50 MG in SYRINGE 0 ML IV SCH (22:47)
[2021-05-31] MEDS: ICU ELECTROLYTE REPLACEMENT PROTOCOL SCH (22:52)
--- NOTE | 2021-05-31 23:25 | Procedure Note ---
Procedure Note Date of Service May 31, 2021 Note Procedure: Paste Worker Indwelling Peripherally Inserted IV Catheter Placement Attending: Dr. Xiong APC: Jerel Osman PA-C Indication: Need for IV Access, Poor Vascular Access Anesthesia: None Verbal consent was obtained from patient prior to performing the procedure. A time-out was completed verifying correct patient, procedure, site, positioning, and implant(s) or special equipment if applicable. Utilizing bedside ultrasound, vascularity of the LEFT upper extremity was assessed. Vessel size was noted for appropriate catheter selection and skin was marked with gentle pressure. Patients LEFT upper extremity was prepped and draped in the usual sterile fashion utilizing chlorhexidine. Ultrasound guidance was used to aid needle placement. A 20 g Endurance Catheter was introduced into the LEFT Cephalic vein under direct ultrasound guidance. Guide wire was easily deployed without resistance. Catheter was threaded over the guide wire without resistance and the entire apparatus was removed intact. Good venous blood return was noted in the catheter. The IV catheter was easily flushed with sterile saline flush. Sterile clave was attached to the end of the catheter and good blood return was again noted. Tourniquet was released. StatLock device and sterile dressing were applied. The patient tolerated the procedure well. Blood Loss: Minimal Complications: None Procedural Ultrasound Guidance: Procedure Date: 05/31/2021 Indication: Poor Vascular Access Attending: Dr. Xiong APC: Jerel Osman PA-C Artery/Veins Identified: YES Access confirmed in Vein with ultrasound: YES Complications: NONE Patient tolerated procedure: WELL Coding CPT Codes Tubes, Drains, and Vasc Access - Tubes, Drains, and Vasc Access: [id number] Venipuncture, Age 2/>Req phys skill, (sep proc), Dx/Tx (not rtn) ([id number]) [facility] [place] Procedure Codes (Charges) Tubes, Drains, and Vasc Access Procedure 1: Tubes, Drains, and Vasc Access: [id number] Venipuncture, Age 2/>Req phys skill, (sep proc), Dx/Tx (not rtn)
[2021-06-01] MEDS: LACTATED RINGER'S 1,000 ML IV SCH ×5 (00:16→20:09)
[2021-06-01] MEDS: NOREPINEPHRINE/D5W 8 MG/508 ML BAG IV SCH ×4 (00:57→18:14)
[2021-06-01] MEDS: HYDROCORTISONE SOD 50 MG in SYRINGE 0 ML IV SCH ×4 (02:58→20:08)
[2021-06-01] MEDS: HYDROmorphone INJ 0.5 MG/0.5 ML SYR IV PRN ×3 (03:20→20:03)
[2021-06-01 05:12] LABS: BUN Creatinine Ratio 8.3 (10-20); Calcium 7.1 mg/dl (8.5-10.1); Est GFR (African American) 23.1 ml/min; Est GFR (Non-African American) 19.9 ml/min; Magnesium 1.8 mg/dl (1.7-2.4); Phosphorus 5.2 mg/dl (2.5-4.9); Potassium 4.8 mmol/L (3.5-5.1)
[2021-06-01 05:33] LABS: Hematocrit (blood only) 38.7 % (37-47); Hemoglobin 12.3 g/dL (12.0-16.0); Mean Corpuscular Hemoglobin 33.4 pg (25-34); Mean Corpuscular Hgb Conc 31.8 g/dL (32-36); Mean Corpuscular Volume 105.2 fL (80-100); Mean Platelet Volume 9.9 fL (7.4-10.4); Platelet Count 104 K/uL (130-400); RDW Coefficient of Variation 15.7 % (11.5-14.5); RDW Standard Deviation 60.8 fL (36.4-46.3); Red Blood Count 3.68 M/uL (4.2-5.4); White Blood Count 39.23 K/uL (4.8-10.8)
[2021-06-01 05:35] LABS: ALC (manual) 0.67 K/uL (1.2-3.4); ANC (manual) 37.58 K/uL (1.4-6.5); Lymphocytes # (manual) 0.67 K/uL (1.2-3.4); Lymphocytes % (manual) 1.7 %; Monocytes # (manual) 0.98 K/uL (0.11-0.59); Monocytes % (manual) 2.5 %; Neutrophils # (manual) 37.58 K/uL (1.4-6.5); Neutrophils % (manual) 95.8 %; RBC Morphology Unremarkable
[2021-06-01] MEDS: ICU ELECTROLYTE REPLACEMENT PROTOCOL SCH ×2 (07:33→17:27)
--- NOTE | 2021-06-01 07:37 | XRay Report ---
XR chest 1V portable CLINICAL HISTORY: hypotension and hypoxia COMPARISON STUDY: Chest radiograph February 23, 2019. Chest CT August 29, 2019. FINDINGS: Left internal jugular [id number] is in place. A density projecting over the right lung i s likely due to a breast implant. No pneumothorax or pleural effusion is noted. Asymmetric left lung volume loss with interstitial thickening is chronic. There is no evidence for pulmonary edema. There is apparent hazy left basilar opacity. Note is also made of right infrahilar opacity. Mild cardiomega ly is unchanged. IMPRESSION: 1. Right infrahilar opacity which could reflect consolidation or atelectasis. 2. Apparent hazy left basilar opacity which is likely artifactual however airspace disease could appe ar similar. 3. Chronic changes within the left lung with volume loss and interstitial thickening. ACT 112: Negative or not required by law. Electronically signed by: Srinivasa Lui M.D. 06/01/2021 7:36 AM
[2021-06-01] MEDS: PIPERACILLIN/TAZOBACTAM 4.5 GM in DEXTROSE 5% 100 ML IV SCH ×2 (07:48→15:05)
[2021-06-01] MEDS: FLUTICASONE/VILANTEROL 100/25MCG 14 PUFFS/INHALER INH SCH (08:41)
[2021-06-01] MEDS ORDERED: FUROSEMIDE 40 MG/4 ML VIAL IV ONE (08:55)
[2021-06-01 08:58] LABS: Albumin Level 2.1 gm/dl (3.4-5.0); Bilirubin Direct 1.8 mg/dl (0-0.2); Total Protein 4.9 gm/dl (6.0-8.3)
--- NOTE | 2021-06-01 09:29 | Gastroenterology Progress Note ---
Date of Service June 01, 2021 Assessment & Plan (1) Septic shock: (2) Acute kidney injury: (3) Gallstone pancreatitis: Plan: Pt is a 51 yo female w hx of metastatic breast ca seen for suspected gallstone pancreatitis. Underwent EUS/ERCP 05/31 - benign papillary stenosis noted though no stones found. Biliary sphincterectomy performed, biliary stent and pancreatic stent placed. She was transferred to ICU due to septic shock, currently on NE support. WBC improved, LFTs similar, Cr increasing. Clinically she does appear to be improved w/o increased SOB, abd pain, n/v. - Continue broad spectrum antibx support - F/U cultures - Decrease LR to 100ml/hr - Consult surgery to eval for possible cholecystectomy; defer to Sx on the timing - Plan on repeat ERCP 3 months to remove biliary stent (giving time for pt to have cholecystectomy if she's a surgical candidate); pancreatic duct stent should pass by itself within about 2 week's time - Monitor renal function ; continue holding BP meds Admission and Anticipated Discharge Date Admission Date: May 30, 2021 Supervising Physician Co-Signing Physician Notes I performed a history and physical examination of the patient today, including specifically on physical exam - soft abdomen. I have discussed the patient's management with the advanced practitioner. Please refer to the nurse practitioner's note for the documented findings and plan of care. Clinically improved today, specifically her mental status. Abdominal pain improved. WBC trending down. Going into KITA. Recommend: Continue IV ABx. Judicious use of IV Hydration. PRN pain control for pancreatitis. Consider Renal consult. Watch for rising intraabdominal pressure. She is not a surgical candidate for cholecystectomy, I will discuss EUS guided approach as OP with the patient, currently no signs of cholecystitis. Subjective Pt s/p ERCP 05/31, transferred to ICU for management of septic shock. Currently on NE, BP 95/56. She reports not as much SOB and no longer having abd pain, no n/v. Review of Systems Review of Systems: All systems reviewed & are unremarkable except as noted in HPI & below Physical Exam Constitutional: WD/WN, vitals as above well groomed, cooperative and comfortable Eyes: PERRL, conjunctivae normal, anicteric sclerae ENMT: external ear and nose normal, oropharynx normal Respiratory: normal respiratory effort, lungs clear to auscultation Cardiovascular: RRR, no murmur, no edema Gastrointestinal (Abdomen): soft, non tender, BS hypoactive Skin: no rashes, warm and dry no jaundice Psychiatric: A+Ox3, euthymic affect Lymphatic: no lymphedema Results & Data ([facility]) Vital Signs (Past 12 Hours) Vital Signs Temp Pulse Pulse Resp BP BP Pulse Ox 06/01/21 08:30 91 H 18 96/56 L 94 06/01/21 08:15 88 13 92/69 L 95 06/01/21 08:10 37.0 C 06/01/21 08:00 88 16 91/58 L 94 06/01/21 07:45 93 H 16 100/66 96 06/01/21 07:30 100 H 26 H 98/62 L 94 06/01/21 07:15 91 H 16 101/66 95 06/01/21 07:00 37.5 C 85 87 14 92/61 L 101/66 95 06/01/21 02:00 88 16 113/58 L 96 06/01/21 01:00 88 17 87/53 L 95 06/01/21 00:00 16 94/51 L 95 05/31/21 23:00 102 H 13 96/54 L 92 05/31/21 22:45 100 H 18 103/56 L 95 05/31/21 22:30 99 H 22 91/60 L 95 05/31/21 22:15 96 H 20 106/55 L 94 05/31/21 22:00 92 H 21 99/51 L 96 05/31/21 21:45 91 H 17 77/55 L 95 05/31/21 21:30 94 H 19 98/51 L 93
--- NOTE | 2021-06-01 10:08 | Surgery Consultation ---
Date of Consultation June 01, 2021 Assessment & Plan (1) Gallstone pancreatitis: This is a 51yF with a PMH of metastatic breast ca, DM, chemo induced cardiomyopathy, MO, who presented to the [facility] ED on 05/30/21 with complaints of abdominal pain, nausea/vomiting. Workup with a CT a/p was performed that revealed acute pancreatitis, + cholelithiasis, without evidence of acute cholecystitis. Yesterday patient underwent EUS/ERCP with GI where they found biliary sludge and placed a biliary and pancreatic duct stent and surgery was consulted. S/p procedure patient developed hypotension unresponsive to IVF. She was transferred to the ICU and started on broad spectrum abx and levo for BP support. Today WBC 39, Cr: 2.6, LFTs remarkable for Tb: 3, Db 1.8, AST: 52, ALT: 24, AlkP: 25. Lipase yesterday 999 (1745). She is currently on 0.08 levophed, BPs 90s/50s. 6L oxygen. Oliguric. On exam patient's abdomen is soft with some mild discomfort to palpation across the upper abdomen. Will discuss timing of cholecystectomy, but will likely want patient to recover more from this insult and workup any other etiologies of potential sources of infection. Supervising Physician Co-Signing Physician Notes I personally saw and evaluated the patient with Radha Taylor PA-C and agree with the assessment and plan. 51-year-old female with gallstone pancreatitis requiring pressor support CT images and results reviewed from her CT 2 days ago, she has a fair amount of pancreatic inflammation and edema as well as peripancreatic fluid EUS and ERCP reports reviewed, she did have some sludge in her common bile duct that was removed She is currently requiring low-dose Levophed in order to maintain her blood pressure Plan is to continue supportive care of her acute pancreatitis and KITA There are no plans for cholecystectomy anytime soon and she may not be a surgical candidate in general due to her being on chemotherapy for her metastatic breast cancer If she is not significantly improved in the next 48 to 72 hours you could consider an IV contrast CT pancreatic protocol to further evaluate her pancreas for any signs of necrosis We will follow History of Present Illness Attending Physician: Tariq De La Rosa MD History of Present Illness This is a 51yF with a PMH of metastatic breast ca, DM, chemo induced cardiomyopathy, MO, who presented to the [facility] ED on 05/30/21 with complaints of abdominal pain, nausea/vomiting. Per patient and over the past month the patient has been dealing with intermittent nausea, mostly in the AM, they believed may have been related to chemotherapy. Last chemo was 4 weeks ago and she was suppose to start again this upcoming week. The nausea would come and go and had no relation to food and was managed with zofran. Starting this past Sunday the patient developed 10/10 constant abdominal pain, along with more regular nausea/vomiting. Her symptoms progressed into Sunday prompting her to come into the ER for further evaluation. A CT a/p was performed that revealed acute pancreatitis, + cholelithiasis, without evidence of acute cholecystitis. H ospitalists admitted the patient with GI consultation. Yesterday patient underwent EUS/ERCP with GI where they found biliary sludge and placed a biliary and pancreatic duct stent and surgery was consulted. Patient reports she has no prior issues with eating foods. This is the first episode of pain like this. Her pain is improved since ERCP, currently rating her pain a 6/10. Prior surgical history on abdomen for uterine fibroids years ago and . She denies fevers/chills or change in bowel habits. Allergies Allergy/AdvReac Type Severity Reaction Status Date / Time adhesive Allergy Rash Verified 04/27/21 14:42 No Known Drug Allergies Allergy Verified 04/27/21 14:42 Home Medications Medication Instructions Recorded Confirmed Type sumatriptan succinate 25 mg tablet 25 mg PO Q2H PRN 01/08/19 05/30/21 History (Imitrex) albuterol sulfate 90 mcg/actuation 2 puffs INH QID PRN #18 gm 10/17/19 05/30/21 Rx aerosol inhaler (ProAir HFA) zoledronic acid 4 mg/5 mL 4 mg IV Q3MO ml 12/31/19 05/30/21 History intravenous solution bumetanide 1 mg tablet 1 mg PO BID #180 tab 08/04/20 05/30/21 Rx fluticasone 232 mcg-salmeterol 14 1 inh INHALATION BID #1 ea 01/03/21 05/30/21 Rx mcg/actuation breath activated powdr gemcitabine [Gemzar] 1 dose IV WK 02/14/21 05/30/21 History ondansetron HCl 8 mg tablet 8 mg PO Q12H 02/22/21 05/30/21 History sacubitril 24 mg-valsartan 26 mg 1 tab PO BID #180 tab 02/22/21 05/30/21 Rx tablet carvedilol 12.5 mg tablet 12.5 mg PO BID #180 tab 03/21/21 05/30/21 Rx benzonatate 100 mg capsule 200 mg PO TID PRN #60 cap 03/28/21 05/30/21 Rx Patient History Medical History Acute pancreatitis KITA (acute kidney injury) Cardiomyopathy Congenital hypoplasia of lung Left Gallstone pancreatitis Heart failure with reduced ejection fraction History of breast cancer History of uterine fibroid Metastatic breast cancer (~2019) Mixed hyperlipidemia Morbid obesity with BMI of 45.0-49.9, adult Prediabetes Reactive airway disease Septic shock Surgical History History of breast reconstruction (~2011) Mack, 2 stage Doctor Of Audiology/implant Mercedita smooth round high profile gel 750 cc Ref# [id number] LOT# [id number] SN# [id number] Date of permanent prosthesis placement: 08/12/2013 History of section History of mastectomy, total Hx of cardiac cath Family History Mother Breast cancer Pancreatic cancer Father Heart disease Cardiac arrhythmia Grandmother (Paternal) Breast cancer Family/Other Ovarian cancer Denies family history of Prostate cancer Myocardial infarction Colorectal cancer Social History Smoking Status: Never smoker Second Hand Exposure: No; Do You Dip or Chew Tobacco: No; Tobacco Cessation Education Requested by Patient: No Hx Alcohol Use: Yes Alcohol type: wine Hx Substance Use: No Preferred Language: Tanzanian Communication Ability: Effective Visual Impairment: Limited Hearing Ability: Normal Basic Combatant Swimmer Required: No Beliefs That Will Affect Care: None marital status: Current Living Situation: Family current occupational status: employed 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 How many Children do You have: 1 Other Information That Helps Us Care for You: No Feels Safe at Home: Yes Safety Concerns: Feels Safe At This Time Dental Care, Regularly: Yes Seatbelt Use: always Sunscreen Use: Yes Assistive Devices: Cane Review of Systems Constitutional: no fever and no chills Respiratory: + dyspnea Gastrointestinal: + abdominal pain, + bloating, + nausea and + vomiting; no change in bowel habits Physical Exam Physical Exam: awake/alert Constitutional: + morbidly obese; no acute distress Respiratory: normal respiratory effort Gastrointestinal (Abdomen): Percussion/Palpation: + abdomen tender (discomfort to palpation across upper abdomen) and abdomen soft Results & Data ([facility]) Vital Signs (Past 12 Hours) Vital Signs Temp Pulse Pulse Resp BP BP Pulse Ox 06/01/21 08:30 91 H 18 96/56 L 94 06/01/21 08:15 88 13 92/69 L 95 06/01/21 08:10 37.0 C 06/01/21 08:00 88 16 91/58 L 94 06/01/21 07:45 93 H 16 100/66 96 06/01/21 07:30 100 H 26 H 98/62 L 94 06/01/21 07:15 91 H 16 101/66 95 06/01/21 07:00 37.5 C 85 87 14 92/61 L 101/66 95 06/01/21 02:00 88 16 113/58 L 96 06/01/21 01:00 88 17 87/53 L 95 06/01/21 00:00 16 94/51 L 95 05/31/21 23:00 102 H 13 96/54 L 92 05/31/21 22:45 100 H 18 103/56 L 95 05/31/21 22:30 99 H 22 91/60 L 95 05/31/21 22:15 96 H 20 106/55 L 94 Diagnostic Findings T abd pelvis IV con only CLINICAL HISTORY: Diffuse abdominal pain with nausea and vomiting . History of breast cancer COMPARISON STUDY: No previous studies for comparison. CT DOSE: 1520.68 mGy.cm TECHNIQUE: Standard CT of the Abdomen and Pelvis was performed with IV contrast. A dose lowering technique was utilized adhering to the principles of ALARA. Contrast Volume: Optiray 320, 94 ml. The patient did not receive oral contrast. FINDINGS: Lung base: The right lung is clear. Bullous disease is seen involving the left lower lobe. This also pleural thickening at the left lung base. Abdominal cavity and pancreas there is: There is no evidence for abdominal mass, adenopathy or gross ascites. There is diffuse edema present involving the pancreas characteristic of acute, diffuse pancreatitis. Peripancreatic inflammatory changes are seen. Fluid is present within the adjacent mesentery with extension into both paracolic gutters. No pseudocyst formation is seen. Liver: There is homogeneous fatty attenuation of the liver parenchyma. There is heterogeneous nodular enhancement of a lesion within the right lobe of the liver anteriorly measuring approximately 2.5 cm. This is most characteristic of a hemangioma. No other enhancing lesions are seen. Spleen: There is homogeneous attenuation of the splenic parenchyma. There is no enhancing mass lesion. Gall Bladder: The gallbladder is distended with cholelithiasis. No evidence for wall thickening or pericholecystic edema is seen. Adrenal glands: The adrenal glands are normal in size and attenuation. There is no evidence for enhancing mass lesion. Kidneys: There is homogeneous attenuation of the renal parenchyma bilaterally. There is no evidence for renal calculus or hydronephrosis. There is no evidence for enhancing mass. Bowel: The bowel loops are normally placed within the abdomen and pelvis without evidence for dilatation or obstruction. There is no evidence for mass lesion. There are no inflammatory changes present. There is no evidence for free air. The appendix is not visualized. Bladder: The bladder is within normal limits with no evidence for focal mass, calculus or diverticulum. : There is no evidence for pelvic mass or adenopathy. There is no evidence for pelvic ascites. Vasculature: There is no evidence for aneurysmal dilatation of the abdominal aorta. Osseous structures: There is no acute osseous pathology. Degenerative changes are seen within the spine. IMPRESSION: 1. Acute pancreatitis with peripancreatic inflammatory changes and mesenteric edema present. 2. Fatty infiltration of the liver with findings characteristic of a hemangioma. 3. Cholelithiasis with no CT evidence for acute cholecystitis. 4. Additional nonacute findings are delineated above. ACT 112: Negative or not required by law. Electronically signed by: Marc Obrien M.D. 05/30/2021 11:32 AM Patient Name: Roma Molina Procedure Date: 05/31/2021 1:26 PM Date of : 1970 Admit Type: Inpatient Age: 51 Gender: Female Attending MD: Barber Mckeon MD Procedure: ERCP Providers: Barber Mckeon MD Referring MD: Tariq De La Rosa Indications: Suspected ascending cholangitis, Gallstone associated acute pancreatitis Medicines: General Anesthesia Complications: No immediate complications. Estimated Blood Loss: Estimated blood loss: none. Procedure: Pre-Anesthesia Assessment: - Prior to the procedure, a History and Physical was performed, and patient medications, allergies and sensitivities were reviewed. The patient's tolerance of previous anesthesia was reviewed. - The risks and benefits of the procedure and the sedation options and risks were discussed with the patient. All questions were answered and informed consent was obtained. - Patient identification and proposed procedure were verified prior to the procedure by the physician and the nurse. The procedure was verified in the procedure room. - Pre-procedure physical examination revealed no contraindications to sedation. After obtaining informed consent, the scope was passed under direct vision. Throughout the procedure, the patient's blood pressure, pulse, and oxygen saturations were monitored continuously. The Duodenoscope was introduced through the mouth, and advanced to the duodenum and used to inject contrast into the bile duct. The ERCP was accomplished without difficulty. The patient tolerated the procedure well. Findings: The bottom ironer film was normal. The esophagus was successfully intubated under direct vision. The scope was advanced to a normal major papilla in the descending duodenum without detailed examination of the pharynx, larynx and associated structures, and upper GI tract. The upper GI tract was grossly normal. A 0.035 inch angled standard wire was passed into the ventral pancreatic duct. The ventral pancreatic duct was then deeply cannulated. Contrast was injected. One 5 Fr by 9 cm plastic pancreatic stent with a single external pigtail and no internal flaps was placed into the ventral pancreatic duct. Clear fluid flowed through the stent. The stent was in good position. A biliary pre-cut sphincterotomy was made with a monofilament needle knife over a pancreatic stent using ERBE electrocautery. There was no post-sphincterotomy bleeding. A 0.025 inch x 270 cm angled Visiglide wire was passed into the biliary tree. The Fusion OMNI sphincterotome was passed over the guidewire and the bile duct was then deeply cannulated. Contrast was injected. Opacification of the entire biliary tree was successful. The maximum diameter of the ducts was 8 mm. The biliary orifice was stenotic. This appeared benign. The biliary sphincterotomy was extended with a monofilament traction (standard) sphincterotome using ERBE electrocautery. There was no post-sphincterotomy bleeding. The biliary tree was swept with a 15 mm balloon starting at the bifurcation. Sludge was swept from the duct. One 10 Fr by 8 cm plastic biliary stent with a single external flap and a single internal flap was placed into the common bile duct. Bile flowed through the stent. The stent was in good position. Impression: - Benign biliary papillary stenosis likely related to recent passage of a gallstone causing an element of biliary obstruction. - A biliary sphincterotomy was performed. - The biliary tree was swept and thick black sludge was found. - One plastic biliary stent was placed into the common bile duct. - One plastic pancreatic stent was placed into the ventral pancreatic duct. Recommendation: - [facility]. - Refer to a surgeon for cholecystectomy. - Continue IV ABx. - Repeat ERCP in 6 weeks to remove stent. COMMENT: It is not very clear if the source of her severe sepsis is the biliary tree hence please expand the work up to include all other sources, specifically if she does not improve after biliary stenting. Barber Mckeon MD 05/31/2021 3:48:30 PM This report has been signed electronically. Note Initiated On: 05/31/2021 1:26 PM Number of Addenda: 0 I attest to the content of the Intraoperative Record and orders documented therein, exceptions below PG Care Time/CCT Total # of Minutes Spent Total Time Spent with Patient: Total time spent is greater than 50% in coordination of care (as documented) at patient's floor/unit and/or counseling patient: Coding Level of Care Code 62582 Inpt Consult Level 3 Diagnoses Gallstone pancreatitis K85.10
--- NOTE | 2021-06-01 11:06 | Critical Care Progress Note ---
Date of Service June 01, 2021 Assessment & Plan (1) Septic shock: (2) Cholangitis: (3) KITA (acute kidney injury): (4) Gallstone pancreatitis: (5) Morbid obesity with BMI of 40.0-44.9, adult: Plan: 51-year-old female with a history of metastatic breast cancer presenting to the hospital pancreatitis and biliary sepsis. Underwent stent placement today and was found to be in septic shock post procedure. Neurologic: No issues. History of brain mets with surgery. Pulmonary: History of hypoplastic left lung. Atelectasis seen. Continue pulmonary toileting including IS and flutter. Cardiovascular: History of cardiomyopathy. Holding Entresto and Coreg. Continue Levophed to maintain mean arterial pressure above 65. On stress dose steroids. Gastrointestinal: N.p.o. presently. Status post ERCP and stent placement. GEN surgery does not feel surgical intervention is warranted at this time. Abdominal ultrasound pending. She is at risk for intra-abdominal hypertension. Renal: KITA likely related to ischemic ATN. Monitor urine output. Nephro consult placed. At risk for intra-abdominal hypertension Infectious disease: Septic shock secondary to biliary sepsis. Blood cultures ordered. Continue daptomycin and Zosyn. Hematologic: No significant issues at present. Endocrine: On stress dose steroids Lines and tubes: Left brachial arterial line in place. Port-A-Cath in place. VTE prophylaxis: SCDs. CODE STATUS: Full code Family at bedside: Not available at bedside Disposition: ICU. Discussed on interdisciplinary rounds I have personally spent 33 minutes of critical care time in the direct management of this patient. This is a life/limb threatening event. This includes time spent evaluating patient, direct bedside care, chart review, placing orders, interpretation of diagnostic studies, discussion with consultants, patient, and family members, as well as other required patient management activities. This time is exclusive of all separately billable procedures, and teaching time and separate from and in addition to any other critical care service time. Thank you for allowing us to participate in the care of this patient. Admission and Anticipated Discharge Date Admission Date: May 30, 2021 Subjective Patient alert and oriented. Mild abdominal pain. Remains on low-dose of L evophed. Review of Systems Review of Systems: All systems reviewed & are unremarkable except as noted in HPI & below Physical Exam Physical Exam: Constitutional: Obese and frail appearing female no apparent distress. Laying in bed. Eyes: Pupils are equal round and reactive to light. Conjunctivae are normal. Anicteric sclera. Ears nose, mouth and throat: No deformities. Neck: Trachea is midline. Visual inspection is normal. Respiratory: Clear to auscultation bilaterally. No use of accessory muscles. No significant clubbing noted. Cardiovascular: Regular rate and rhythm. No murmurs. No edema. Gastrointestinal: Mild tenderness to palpation. Otherwise soft. Diminished bowel sounds. Musculoskeletal: No cyanosis. Patient is able to move all extremities. Skin: No rashes, warm dry and intact. Neurologic: No obvious focal neurological deficits seen. Psychiatric: Alert and oriented x3 with a euthymic affect. Results & Data Results & Data ([facility]) Vital Signs (Past 12 Hours) Vital Signs Temp Pulse Pulse Resp BP BP Pulse Ox 06/01/21 10:00 37.1 C 06/01/21 08:30 91 H 18 96/56 L 94 06/01/21 08:15 88 13 92/69 L 95 06/01/21 08:10 37.0 C 06/01/21 08:00 88 16 91/58 L 94 06/01/21 07:45 93 H 16 100/66 96 06/01/21 07:30 100 H 26 H 98/62 L 94 06/01/21 07:15 91 H 16 101/66 95 06/01/21 07:00 37.5 C 85 87 14 92/61 L 101/66 95 06/01/21 02:00 88 16 113/58 L 96 06/01/21 01:00 88 17 87/53 L 95 06/01/21 00:00 16 94/51 L 95 05/31/21 23:00 102 H 13 96/54 L 92 Coding Level of Care Code Critical Care 1st 30-74 mins Diagnoses Septic shock A41.9; R65.21 Cholangitis K83.09 KITA (acute kidney injury) N17.9 Gallstone pancreatitis K85.10 Morbid obesity with BMI of 40.0-44.9, adult E66.01; Z68.41 Time Spent (min) 33
--- NOTE | 2021-06-01 11:11 | Ultrasound Report ---
US abdomen complete CLINICAL HISTORY: eval for obstructive uropathy TECHNIQUE: Real-time sonographic images of the abdomen were obtained. COMPARISON: Comparison is made to CT abdomen pelvis 05/30/2021 FINDINGS: The liver is diffusely echogenic in appearance with poor ultrasound penetration, with normal contour, which is consistent with fatty infiltration. There is no intrahepatic ductal dilatation. Gallbladder and biliary tree: No gallstones or sludge are seen. Normal caliber wall. No pericholecys tic fluid. Common bile duct diameter is 0.3 cm. The right kidney measures 10.8 cm in length. The left kidney measures 12.1 cm in length. There is no evidence of hydronephrosis or mass in the bilateral kidneys. Spleen: Spleen measures 12.3 cm in length. Unremarkable. The pancreas was nonvisualized due to overlying bowel gas. No free fluid was seen in the abdomen. IMPRESSION: No evidence of hydronephrosis. Redemonstration of hepatic steatosis. ACT 112: Negative or not required by law. Electronically signed by: Jose David Luque M.D. 06/01/2021 11:09 AM
--- NOTE | 2021-06-01 12:07 | Hospitalist Progress Note ---
Date of Service June 01, 2021 Assessment & Plan (1) Septic shock: Plan: Manifested by hypotension, tachycardia, +procal, KITA, leukocytosis with gallstone pancreatitis s/p EUS/ERCP w/ biliary and pancreatic stent placement - WBC climbing, today 39,230 up from 35,000 with left shift - Remains on IVF and pressors (Levophed), goal MAP 65 - Continue empiric broad spectrum abx including Zosyn & Dapto - ALL BP meds (Entresto and Coreg) remain on hold - GI advised surgical consult to discuss cholecystectomy, seen this AM by surgery PADeshaun, appreciate input - She is also receiving stress-dose steroids - Additional orders as per ICU green chain off bearer (2) Cholangitis: Plan: - See #1 (3) Pancreatitis, gallstone: Plan: - Diffuse abdominal pain with Lipase 3093. CT of the abdomen showed the gallbladder consistent with cholelithiasis. No evidence for wall thickening or pericholecystic edema seen. Acute pancreatitis with peripancreatic inflammatory changes and mesenteric edema is present. - TB 2.5 this AM up from 2.4, DB 1.1 - Blood cultures pending. - IV Zosyn 4.5g Q6h. - Continue LR IVF - Dilaudid 0.25mg Q6h prn ordered, change to 0.5mg IV q4h and add IV APAP for better pain control - MRCP ordered but not performed, uncertain why - GI consulted, for ERCP today, she remains NPO - Appreciate GI assistance (4) Cholelithiases: Plan: -As above. No evidence of acute cholecystitis, surgery w/o plans for emergent cholecystectomy at this time (5) UTI (urinary tract infection): Plan: - She is empirically on Zosyn & Dapto - Culture data noted no growth, but would treat given her chronic immune suppression with chemo and metastatic breast CA - UA nitrite positive with 1+ leukocyte esterase and >30 wbc (6) Acute kidney injury: Plan: - Likely ischemic ATN d/t septic shock now with oliguria - Continue IVF - Renal ultrasound ordered - Consult nephrology, Dr. Park, appreciate assistance - Hold entresto as outlined above - Maintain vincent and urine output - Trend labs (7) Heart failure with reduced ejection fraction: Plan: -Echo from 05/10/21 reveals EF 45-50%. Left ventricular systolic function is borderline reduced, borderline hypokinesis of left ventricle. -Will hold Bumex for now as patient is hypovolemic. -Continue to monitor BMP daily as well as for signs of volume overload. -Hold Entresto and Coreg due to #1 (8) Cardiomyopathy: Plan: -Idiopathic versus chemotherapy-induced. -As above. (9) Hypomagnesemia: Plan: - Mg++ 1.4. - Repleted on admit with Mag Sulfate, total 3g - Repeat Mg level this AM normal at 2.1 (10) Metastatic breast cancer: Plan: -Patient reports her last chemo treatment approx 1 month ago. -Brain and bone mets (11) Reactive airway disease: Plan: -Continue albuterol inhaler. -Continue fluticasone salmeterol inhaler. -Monitor SpO2. (12) DVT prophylaxis: Plan: -SCDs ordered. -Would hold chemoprophylaxis due to thrombocytopenia (13) Morbid obesity with BMI of 40.0-44.9, adult: Plan: Continue ICU level of care Interventions as outlined above and per ICU green chain off bearer Trend labs Provided brief update to patient's this morning via phone on rounds Will d/w Dr. De La Rosa Admission and Anticipated Discharge Date Admission Date: May 30, 2021 Subjective Patient seen on rounds this morning. She remains in ICU on pressors to maintain hemodynamic stability. Per RN, Levophed able to be weaned down. She is now oliguric with increasing creatinine. She continues to have c/o abd pain, mainly epigastric and left upper quadrant. Denies n/v. She is awake and alert. Denies cp or dyspnea. Review of Systems Review of Systems: Constitutional: Reports chills, no objective fever, myalgias, night sweats Eyes: No diplopia, no worsening or blurred vision ENT: normal hearing, no trouble swallowing Respiratory: No cough, sputum, dyspnea at rest or on exertion Cardiovascular: No chest pain, tightness or palpitations Abdomen: Abd pain (as above); no diarrhea or constipation Musculoskeletal: No joint pain, calf pain, swelling Neurologic: No weakness, numbness/tingling, or balance problems Psychiatric: No anxiety or depression Skin: No rash or itch Physical Exam Physical Exam: GENERAL: 51 yo obese WF who appears ill. NAD. LUNGS: Clear to auscultation bilaterally. No W/R/R. CARDIOVASCULAR: Regular rate and rhythm. No M/G/R. No JVD. ABDOMEN: Soft, no significant distention, tender to light palpation in epigastrium and LUQ. Decreased BS throughout. EXTREMITIES: No edema. Non-tender. Peripheral pulses +2/4. NEUROLOGIC: A&O x3. PSYCHIATRIC: Cooperative. Appropriate mood and affect. SKIN: warm, dry, intact. Results & Data Results & Data ([facility]) Vital Signs (Past 12 Hours) Vital Signs Temp Pulse Pulse Resp BP BP Pulse Ox 06/01/21 10:00 37.1 C 06/01/21 08:30 91 H 18 96/56 L 94 06/01/21 08:15 88 13 92/69 L 95 06/01/21 08:10 37.0 C 06/01/21 08:00 88 16 91/58 L 94 06/01/21 07:45 93 H 16 100/66 96 06/01/21 07:30 100 H 26 H 98/62 L 94 06/01/21 07:15 91 H 16 101/66 95 06/01/21 07:00 37.5 C 85 87 14 92/61 L 101/66 95 06/01/21 02:00 88 16 113/58 L 96 06/01/21 01:00 88 17 87/53 L 95 Laboratory Results 06/01/21 04:44 06/01/21 04:44 PG Care Time/CCT Total # of Minutes Spent Total Time Spent with Patient: Total time spent is greater than 50% in coordination of care (as documented) at patient's floor/unit and/or counseling patient: Coding Level of Care Code 45043 Subseq Hosp Care Lvl 3 Diagnoses Cholangitis K83.09 Pancreatitis, gallstone K85.10 Cholelithiases K80.20 UTI (urinary tract infection) N39.0 Acute kidney injury N17.9 Heart failure with reduced ejection fraction I50.20 Cardiomyopathy I42.9 Hypomagnesemia E83.42 Metastatic breast cancer C50.919 Reactive airway disease J45.909 DVT prophylaxis Z29.9 Morbid obesity with BMI of 40.0-44.9, adult E66.01; Z68.41 Septic shock A41.9; R65.21
[2021-06-01] MEDS: DAPTOmycin 475 MG in SYRINGE 0 ML IV SCH (17:27)
--- NOTE | 2021-06-01 19:54 | Nephrology Consultation ---
Date of Consultation June 01, 2021 Assessment & Plan (1) KITA (acute kidney injury): (2) Cardiomyopathy: (3) Septic shock: KITA clinically consistent with ATN. Baseline creatinine normal, 0.7 mg/dL. Aguilar intact. CT and US reviewed did not demonstrate evidence of obstruction. Kidneys normal in appearance. Urine output was relatively oliguric but appears to be improving with supportive care. Intravascular volume replacement. Positive fluid balance ~4 L in past 24 hours. No signs of decompensated CHF at this time. BP improved and Levophed weaned off. MAP goal 65. Clinical presentation consistent with ATN. No emergent indication for dialysis. Potential future indications discussed today. UA/microscopy demonstrating mixed sediment. Study will be repeated in next 24 hours. EAV improving. Continue LR @ 100 ml/hr. Document strict I/O's. Repeat metabolic profile tomorrow AM. Medications appropriately dosed for kidney dysfunction. Monitor CK on dapto. Entresto held. History of Present Illness Reason for Consultation: KITA Requesting Physician: Tariq De La Rosa MD Attending Physician: Tariq De La Rosa MD History of Present Illness Roma Molina is a 51 year-old female with metastatic breast cancer, HFpEF (LVEF 45%), obesity, hypoplastic left lung, and baseline normal kidney function. She presented to the ER at [facility] on May 30 with abdominal pain, nausea, and vomiting. She was admitted with suspected gallstone pancreatitis. CT with c ontrast performed on admission. EUS/ERCP performed on the demonstrating no stone but benign papillary stenosis. Biliary sphincterectomy with biliary and pancreatitis stent placement was performed. A single dose of indomethacin given during admission. Unfortunately, Roma developed post procedure septic shock requiring transfer to the ICU. Serum creatinine 0.7 mg/dL on admission has trended upward to 2.65 mg/dL. Urine output reduced. Levophed gtt has been weaned off. Roma has been maintained in a positive fluid balance with IV LR infusing at 100 ml/hr. Current antibiotic therapy Dapto and Zosyn. Roma was seen and evaluated in her hospital room this evening with her involved by speaker phone. Allergies Allergy/AdvReac Type Severity Reaction Status Date / Time adhesive Allergy Rash Verified 04/27/21 14:42 No Known Drug Allergies Allergy Verified 04/27/21 14:42 Home Medications Medication Instructions Recorded Confirmed Type sumatriptan succinate 25 mg tablet 25 mg PO Q2H PRN 01/08/19 05/30/21 History (Imitrex) albuterol sulfate 90 mcg/actuation 2 puffs INH QID PRN #18 gm 10/17/19 05/30/21 Rx aerosol inhaler (ProAir HFA) zoledronic acid 4 mg/5 mL 4 mg IV Q3MO ml 12/31/19 05/30/21 History intravenous solution bumetanide 1 mg tablet 1 mg PO BID #180 tab 08/04/20 05/30/21 Rx fluticasone 232 mcg-salmeterol 14 1 inh INHALATION BID #1 ea 01/03/21 05/30/21 Rx mcg/actuation breath activated powdr gemcitabine [Gemzar] 1 dose IV WK 02/14/21 05/30/21 History ondansetron HCl 8 mg tablet 8 mg PO Q12H 02/22/21 05/30/21 History sacubitril 24 mg-valsartan 26 mg 1 tab PO BID #180 tab 02/22/21 05/30/21 Rx tablet carvedilol 12.5 mg tablet 12.5 mg PO BID #180 tab 03/21/21 05/30/21 Rx benzonatate 100 mg capsule 200 mg PO TID PRN #60 cap 03/28/21 05/30/21 Rx Patient History Medical History Acute pancreatitis KITA (acute kidney injury) Cardiomyopathy Congenital hypoplasia of lung Left Gallstone pancreatitis Heart failure with reduced ejection fraction History of breast cancer History of uterine fibroid Metastatic breast cancer (~2019) Mixed hyperlipidemia Morbid obesity with BMI of 45.0-49.9, adult Prediabetes Reactive airway disease Septic shock Surgical History History of breast reconstruction (~2011) Mack, 2 stage [employer]age Bab[employer]/implant [place] smooth round high profile gel 750 cc Ref# [id number] LOT# [id number] SN# [id number] Date of permanent prosthesis placement: 08/12/2013 History of section History of mastectomy, total Hx of cardiac cath Family History Mother Breast cancer Pancreatic cancer Father Heart disease Cardiac arrhythmia Grandmother (Paternal) Breast cancer Family/Other Ovarian cancer Denies family history of Prostate cancer Myocardial infarction Colorectal cancer Social History Smoking Status: Never smoker Second Hand Exposure: No; Do You Dip or Chew Tobacco: No; Tobacco Cessation Education Requested by Patient: No Hx Alcohol Use: Yes Alcohol type: wine Hx Substance Use: No Preferred Language: Spanish Communication Ability: Effective Visual Impairment: Limited Hearing Ability: Normal Recreational Therapy Aide Required: No Beliefs That Will Affect Care: None marital status: Current Living Situation: Family current occupational status: employed 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 How many Children do You have: 1 Other Information That Helps Us Care for You: No Feels Safe at Home: Yes Safety Concerns: Feels Safe At This Time Dental Care, Regularly: Yes Seatbelt Use: always Sunscreen Use: Yes Assistive Devices: Cane Review of Systems Review of Systems: All systems reviewed & are unremarkable except as noted in HPI & below Results & Data ([facility]) Vital Signs (Past 12 Hours) Vital Signs Temp Pulse Pulse Resp BP BP Pulse Ox 06/01/21 19:51 37.2 C 06/01/21 18:30 81 16 108/52 L 93 06/01/21 18:00 82 18 103/54 L 94 06/01/21 17:31 83 17 114/56 L 96 06/01/21 17:30 87 18 96 06/01/21 17:00 37.3 C 80 13 108/52 L 94 06/01/21 16:30 86 15 106/44 L 97 06/01/21 16:02 06/01/21 16:01 86 17 101/52 L 93 06/01/21 16:00 37.2 C 87 16 93 06/01/21 15:30 83 13 120/68 94 06/01/21 15:01 93 H 20 100/60 93 06/01/21 15:00 37.2 C 92 H 19 93 06/01/21 14:45 84 19 121/66 94 06/01/21 14:30 83 18 105/59 L 94 06/01/21 14:15 81 15 116/65 94 06/01/21 14:00 37.4 C 86 15 109/63 94 06/01/21 13:45 103 H 16 101/67 92 06/01/21 13:30 78 14 111/55 L 94 06/01/21 13:15 79 13 102/54 L 96 06/01/21 13:00 37.3 C 78 13 90/57 L 96 06/01/21 12:45 78 15 104/58 L 95 06/01/21 12:30 81 16 91/58 L 94 06/01/21 12:15 80 13 102/57 L 94 06/01/21 12:00 37.1 C 83 87 13 89/50 L 89/50 L 95 06/01/21 11:45 84 24 87/58 L 95 06/01/21 11:30 89 14 88/59 L 96 06/01/21 11:15 84 16 105/62 94 06/01/21 11:00 84 21 107/58 L 94 06/01/21 10:30 94 H 19 77 L 06/01/21 10:15 84 16 94/67 L 93 06/01/21 10:00 37.1 C 87 22 105/54 L 94 06/01/21 09:45 86 18 104/55 L 94 06/01/21 09:30 91 H 18 102/49 L 93 06/01/21 09:15 94 H 18 93/61 L 93 06/01/21 09:00 84 17 89/57 L 95 06/01/21 08:45 89 16 96/52 L 95 06/01/21 08:30 91 H 18 96/56 L 94 06/01/21 08:15 88 13 92/69 L 95 06/01/21 08:10 37.0 C 06/01/21 08:00 88 16 91/58 L 94 Pulse Ox 06/01/21 19:51 06/01/21 18:30 06/01/21 18:00 06/01/21 17:31 06/01/21 17:30 06/01/21 17:00 06/01/21 16:30 06/01/21 16:02 93 06/01/21 16:01 06/01/21 16:00 06/01/21 15:30 06/01/21 15:01 06/01/21 15:00 06/01/21 14:45 06/01/21 14:30 06/01/21 14:15 06/01/21 14:00 06/01/21 13:45 06/01/21 13:30 06/01/21 13:15 06/01/21 13:00 06/01/21 12:45 06/01/21 12:30 06/01/21 12:15 06/01/21 12:00 06/01/21 11:45 06/01/21 11:30 06/01/21 11:15 06/01/21 11:00 06/01/21 10:30 06/01/21 10:15 06/01/21 10:00 06/01/21 09:45 06/01/21 09:30 06/01/21 09:15 06/01/21 09:00 06/01/21 08:45 06/01/21 08:30 06/01/21 08:15 06/01/21 08:10 06/01/21 08:00 Laboratory Results Laboratory Results - last 24 hr 05/31/21 05/31/21 05/31/21 20:23 20:23 20:32 WBC RBC Hgb Hct MCV MCH MCHC RDW Std Deviation RDW Coeff of Carol Plt Count MPV Neutrophils % (Manual) Lymphocytes % (Manual) Monocytes % (Manual) Neutrophils # (Manual) Total Absolute Neuts Lymphocytes # (Manual) Total Abs Lymphocytes Monocytes # (Manual) RBC Morphology Sodium 130 L Potassium 4.8 Chloride 99 Carbon Dioxide 20 L Anion Gap 11 BUN 20 Creatinine 2.21 H Est Cr Clr Drug Dosing 37.2 Est GFR ( Amer) 28.8 Est GFR (Non-Af Amer) 24.8 BUN/Creatinine Ratio 9.0 L Glucose 139 H POC Glucose 125 H Lactate 5.0 H* Calcium 7.1 L Phosphorus Magnesium Total Bilirubin Direct Bilirubin AST ALT Alkaline Phosphatase Troponin I < 0.03 Total Protein Albumin Procalcitonin Nasal Screen MRSA (PCR) 05/31/21 05/31/21 06/01/21 23:45 Unknown 03:15 WBC RBC Hgb Hct MCV MCH MCHC RDW Std Deviation RDW Coeff of Carol Plt Count MPV Neutrophils % (Manual) Lymphocytes % (Manual) Monocytes % (Manual) Neutrophils # (Manual) Total Absolute Neuts Lymphocytes # (Manual) Total Abs Lymphocytes Monocytes # (Manual) RBC Morphology Sodium Potassium Chloride Carbon Dioxide Anion Gap BUN Creatinine Est Cr Clr Drug Dosing Est GFR ( Amer) Est GFR (Non-Af Amer) BUN/Creatinine Ratio Glucose POC Glucose 142 H Lactate 4.4 H* Calcium Phosphorus Magnesium Total Bilirubin Direct Bilirubin AST ALT Alkaline Phosphatase Troponin I Total Protein Albumin Procalcitonin Nasal Screen MRSA (PCR) Negative 06/01/21 06/01/21 06/01/21 04:44 04:44 04:44 WBC 39.23 H* RBC 3.68 L Hgb 12.3 Hct 38.7 MCV 105.2 H MCH 33.4 MCHC 31.8 L RDW Std Deviation 60.8 H RDW Coeff of Carol 15.7 H Plt Count 104 L MPV 9.9 Neutrophils % (Manual) 95.8 Lymphocytes % (Manual) 1.7 Monocytes % (Manual) 2.5 Neutrophils # (Manual) 37.58 H Total Absolute Neuts 37.58 H Lymphocytes # (Manual) 0.67 L Total Abs Lymphocytes 0.67 L Monocytes # (Manual) 0.98 H RBC Morphology Unremarkable Sodium 128 L Potassium 4.8 Chloride 97 L Carbon Dioxide 22 Anion Gap 9 BUN 22 Creatinine 2.65 H D Est Cr Clr Drug Dosing 31.0 Est GFR ( Amer) 23.1 Est GFR (Non-Af Amer) 19.9 BUN/Creatinine Ratio 8.3 L Glucose 161 H POC Glucose Lactate 3.1 H* Calcium 7.1 L Phosphorus 5.2 H Magnesium 1.8 Total Bilirubin Direct Bilirubin AST ALT Alkaline Phosphatase Troponin I Total Protein Albumin Procalcitonin Nasal Screen MRSA (PCR) 06/01/21 06/01/21 06/01/21 04:44 04:44 11:08 WBC RBC Hgb Hct MCV MCH MCHC RDW Std Deviation RDW Coeff of Carol Plt Count MPV Neutrophils % (Manual) Lymphocytes % (Manual) Monocytes % (Manual) Neutrophils # (Manual) Total Absolute Neuts Lymphocytes # (Manual) Total Abs Lymphocytes Monocytes # (Manual) RBC Morphology Sodium Potassium Chloride Carbon Dioxide Anion Gap BUN Creatinine Est Cr Clr Drug Dosing Est GFR ( Amer) Est GFR (Non-Af Amer) BUN/Creatinine Ratio Glucose POC Glucose 159 H Lactate Calcium Phosphorus Magnesium Total Bilirubin 3.0 H Direct Bilirubin 1.8 H AST 52 H ALT 24 Alkaline Phosphatase 75 Troponin I Total Protein 4.9 L Albumin 2.1 L Procalcitonin 6.90 H Nasal Screen MRSA (PCR) 06/01/21 16:20 WBC RBC Hgb Hct MCV MCH MCHC RDW Std Deviation RDW Coeff of Carol Plt Count MPV Neutrophils % (Manual) Lymphocytes % (Manual) Monocytes % (Manual) Neutrophils # (Manual) Total Absolute Neuts Lymphocytes # (Manual) Total Abs Lymphocytes Monocytes # (Manual) RBC Morphology Sodium Potassium Chloride Carbon Dioxide Anion Gap BUN Creatinine Est Cr Clr Drug Dosing Est GFR ( Amer) Est GFR (Non-Af Amer) BUN/Creatinine Ratio Glucose POC Glucose 147 H Lactate Calcium Phosphorus Magnesium Total Bilirubin Direct Bilirubin AST ALT Alkaline Phosphatase Troponin I Total Protein Albumin Procalcitonin Nasal Screen MRSA (PCR) PG Care Time/CCT Total # of Minutes Spent Total Time Spent: 35 Total Time Spent with Patient: Total time spent is greater than 50% in coordination of care (as documented) at patient's floor/unit and/or counseling patient: Coding Level of Care Code 92707 Inpt Consult Level 4 Diagnoses KITA (acute kidney injury) N17.9 Cardiomyopathy I42.9 Septic shock A41.9; R65.21
--- NOTE | 2021-06-01 21:22 | Electrocardiogram Report ---
Test Reason : Blood Pressure : / mmHG Vent. Rate : 080 BPM Atrial Rate : 080 BPM P-R Int : 174 ms QRS Dur : 102 ms QT Int : 366 ms P-R-T Axes : 022 -56 100 degrees QTc Int : 422 ms Normal sinus rhythm Left anterior fascicular block Abnormal ECG When compared with ECG of 23-FEB-2019 13:52, Left anterior fascicular block is now Present T wave inversion no longer evident in Inferior leads Confirmed by Hu Shaffer ([id number]) on 06/01/2021 9:21:23 PM Referred By: REFERRED SELF Confirmed By:Hu Shaffer
[2021-06-02] MEDS: PIPERACILLIN/TAZOBACTAM 4.5 GM in DEXTROSE 5% 100 ML IV SCH ×3 (00:55→15:38)
[2021-06-02] MEDS: HYDROCORTISONE SOD 50 MG in SYRINGE 0 ML IV SCH ×2 (02:00→07:51)
[2021-06-02 06:13] LABS: Hematocrit (blood only) 36.5 % (37-47); Hemoglobin 11.6 g/dL (12.0-16.0); Mean Corpuscular Hemoglobin 32.9 pg (25-34); Mean Corpuscular Hgb Conc 31.8 g/dL (32-36); Mean Corpuscular Volume 103.4 fL (80-100); RDW Coefficient of Variation 15.6 % (11.5-14.5); RDW Standard Deviation 59.5 fL (36.4-46.3); Red Blood Count 3.53 M/uL (4.2-5.4); White Blood Count 23.96 K/uL (4.8-10.8)
[2021-06-02] MEDS: LACTATED RINGER'S 1,000 ML IV SCH ×2 (06:17→15:38)
[2021-06-02 06:42] LABS: Mean Platelet Volume 10.6 fL (7.4-10.4); Platelet Count 88 K/uL (130-400)
[2021-06-02 06:43] LABS: Basophils # (auto) 0.02 K/uL (0-0.2); Basophils % (auto) 0.1 %; Eosinophils # (auto) 0.01 K/uL (0-0.5); Immature Granulocytes # (auto) 0.18 K/uL (0.00-0.02); Immature Granulocytes % (auto) 0.8 %; Lymphocytes # (auto) 1.17 K/uL (1.2-3.4); Lymphocytes % (auto) 4.9 %; Monocytes # (auto) 1.44 K/uL (0.11-0.59); Neutrophils # (auto) 21.14 K/uL (1.4-6.5); Neutrophils % (auto) 88.2 %; Platelet Estimate Decreased (Normal); RBC Morphology Unremarkable
[2021-06-02 07:11] LABS: BUN Creatinine Ratio 12.9 (10-20); Est GFR (African American) 24.9 ml/min; Est GFR (Non-African American) 21.5 ml/min; Potassium 4.6 mmol/L (3.5-5.1)
[2021-06-02 07:12] LABS: Magnesium 1.8 mg/dl (1.7-2.4)
[2021-06-02] MEDS: ICU ELECTROLYTE REPLACEMENT PROTOCOL SCH (07:51)
[2021-06-02] MEDS: FLUTICASONE/VILANTEROL 100/25MCG 14 PUFFS/INHALER INH SCH (07:53)
[2021-06-02] MEDS: MAGNESIUM SULFATE / D5W 1 GM/100 ML BAG IV SCH ×2 (07:53→09:35)
[2021-06-02 08:49] LABS: Bilirubin Direct 1.4 mg/dl (0-0.2); Bilirubin,Total 2.3 mg/dl (0.2-1.0); Total Protein 4.7 gm/dl (6.0-8.3)
--- NOTE | 2021-06-02 10:15 | Gastroenterology Progress Note ---
Date of Service June 02, 2021 Assessment & Plan (1) Septic shock: (2) Acute kidney injury: (3) Gallstone pancreatitis: Plan: Pt is a 51 yo female w hx of metastatic breast ca seen for suspected gallstone pancreatitis. Underwent EUS/ERCP 05/31 - benign papillary stenosis noted though no stones found. Biliary sphincterectomy performed, biliary stent and pancreatic stent placed. She was transferred to ICU due to septic shock, currently on NE support. Off pressors now w stable BP. WBC, LFTs, Cr improving. She denies abd pain, n/v. - Continue broad spectrum antibx support - Keep IVF support, however if tolerating PO intake, may DC - Not likely a surgical candidate for cholecystectomy per Surgery team. Will arrange f/u in outpt clinic to discuss Axios stent and drainage of gallbladder with Dr. Mckeon - Plan on repeat ERCP 3 months to remove biliary stent (giving time for pt to have cholecystectomy if she's a surgical candidate); pancreatic duct stent should pass by itself within about 2 week's time - No new GI plans; pls recall prn Admission and Anticipated Discharge Date Admission Date: May 30, 2021 Supervising Physician Co-Signing Physician Notes I performed a history and physical examination of the patient today, including specifically on physical exam - soft abdomen. I have discussed the patient's management with the advanced practitioner. Please refer to the nurse practitioner's note for the documented findings and plan of care. Continues to improve, making urine now and Creatinine trending down. Recommend: Advance diet as tolerated. Repeat ERCP as OP in 8 weeks for stent removal, will arrange Axios stent at the same time. Recall GI if needed. Subjective Pt denies any abd pain, n/v, fever, chills. No BMs, feels a bit bloated Review of Systems Review of Systems: All systems reviewed & are unremarkable except as noted in HPI & below Physical Exam Constitutional: WD/WN, vitals as above well groomed, cooperative and comfortable Eyes: PERRL, conjunctivae normal, anicteric sclerae ENMT: external ear and nose normal, oropharynx normal Respiratory: normal respiratory effort, lungs clear to auscultation Cardiovascular: RRR, no murmur, no edema Gastrointestinal (Abdomen): normal bowel sounds, soft, nontender, no hepatosplenomegaly Skin: no rashes, warm and dry no jaundice Psychiatric: A+Ox3, euthymic affect Lymphatic: no lymphedema Results & Data ([facility]) Vital Signs (Past 12 Hours) Vital Signs Temp Pulse Resp BP Pulse Ox 06/02/21 09:30 74 14 109/63 92 06/02/21 09:00 77 16 100/69 92 06/02/21 08:30 76 14 114/65 89 L 06/02/21 08:12 89 109/71 88 L 06/02/21 08:00 77 121/69 95 06/02/21 07:30 61 102/60 95 06/02/21 07:00 87 13 116/65 94 06/02/21 06:45 79 12 94 06/02/21 04:30 78 14 99/51 L 94 06/02/21 04:01 37.2 C 82 18 108/62 89 L 06/02/21 03:30 76 13 91/60 L 95 06/02/21 03:00 96 H 105/69 81 L 06/02/21 02:30 80 15 90/52 L 93 06/02/21 02:00 76 13 84/52 L 95 06/02/21 01:34 80 20 101/51 L 91 06/02/21 01:30 90 23 85 L 06/02/21 01:16 80 13 92/54 L 95 06/02/21 01:00 77 12 74/51 L 94 06/02/21 00:30 81 16 88/54 L 86 L 06/02/21 00:00 75 13 97/58 L 92 06/01/21 23:30 82 16 91/61 L 93 06/01/21 23:00 86 24 107/61 92 06/01/21 22:30 88 17 115/59 L 93
--- NOTE | 2021-06-02 11:22 | Surgery Progress Note ---
Date of Service June 02, 2021 Assessment & Plan (1) Gallstone pancreatitis: Plan: Her pancreatitis seems to be slowly improving With her metastatic disease on active chemotherapy I think follow-up with GI for possible axial stent is a reasonable option in this patient as to not interrupt her chemotherapy which would need to be stopped in the perioperative period Surgery will sign off at this time, please call with any questions or concerns Admission and Anticipated Discharge Date Admission Date: May 30, 2021 Subjective Patient seen and examined. She is now off pressors. States her abdominal pain is slightly improved. She is afebrile. No nausea or vomiting. Review of Systems Constitutional: no fever and no chills Physical Exam Constitutional: WD/WN, vitals as above Gastrointestinal (Abdomen): Inspection/Auscultation: abdomen normal to inspection; abdomen not distended Percussion/Palpation: + abdomen tender (Epigastric) and abdomen soft; no guarding and abdomen not rigid Results & Data ([facility]) Vital Signs (Past 12 Hours) Vital Signs Temp Pulse Resp BP Pulse Ox 06/02/21 09:30 74 14 109/63 92 06/02/21 09:00 77 16 100/69 92 06/02/21 08:30 76 14 114/65 89 L 06/02/21 08:12 89 109/71 88 L 06/02/21 08:00 77 121/69 95 06/02/21 07:30 61 102/60 95 06/02/21 07:00 87 13 116/65 94 06/02/21 06:45 79 12 94 06/02/21 04:30 78 14 99/51 L 94 06/02/21 04:01 37.2 C 82 18 108/62 89 L 06/02/21 03:30 76 13 91/60 L 95 06/02/21 03:00 96 H 105/69 81 L 06/02/21 02:30 80 15 90/52 L 93 06/02/21 02:00 76 13 84/52 L 95 06/02/21 01:34 80 20 101/51 L 91 06/02/21 01:30 90 23 85 L 06/02/21 01:16 80 13 92/54 L 95 06/02/21 01:00 77 12 74/51 L 94 06/02/21 00:30 81 16 88/54 L 86 L 06/02/21 00:00 75 13 97/58 L 92 06/01/21 23:30 82 16 91/61 L 93 PG Care Time/CCT Total # of Minutes Spent Total Time Spent with Patient: Total time spent is greater than 50% in coordination of care (as documented) at patient's floor/unit and/or counseling patient: Coding Level of Care Code 63418 Subseq Hosp Care Lvl 1 Diagnoses Gallstone pancreatitis K85.10
--- NOTE | 2021-06-02 12:11 | Nephrology Progress Note ---
Date of Service June 02, 2021 Assessment & Plan (1) KITA (acute kidney injury): (2) Cardiomyopathy: (3) Septic shock: Plan: KITA clinically consistent with ATN. Baseline creatinine normal, 0.7 mg/dL. Aguilar draining clear yellow urine. UOP improved overnight. Non-oliguric. CT and US reviewed did not demonstrate evidence of obstruction. Kidneys normal in appearance. Intravascular volume replacement will be continued pending adequate PO intake. No signs of decompensated CHF at this time. BP acceptable. Clinical presentation consistent with ATN. No emergent indication for dialysis. Potential future indications discussed. UA/microscopy demonstrating mixed sediment. Study will be repeated in next 24 hours. Continue LR @ 100 ml/hr. Document strict I/O's. Repeat metabolic profile tomorrow AM. Medications appropriately dosed for kidney dysfunction. Monitor CK on dapto. Entresto held. Admission and Anticipated Discharge Date Admission Date: May 30, 2021 Subjective No acute events overnight. Roma was seen and evaluated in the ICU this morning. Plan of care was reviewed with her by phone. BP stable off vasopressors. LR infusing at 100 ml/hr. She denied significant pain. No fevers. Review of Systems Review of Systems: All systems reviewed & are unremarkable except as noted in HPI & below Physical Exam Constitutional: well developed; no acute distress Eyes: no scleral abnormality and no corneal abnormality ENMT: Mouth: no oral mucosal abnormality and oral mucous membranes not dry Neck: normal visual inspection and trachea midline Respiratory: normal respiratory effort Auscultation: lungs clear to auscultation bilaterally Cardiovascular: Rate/Rhythm: regular rate Heart Sounds: normal S1 and normal S2 Extremities: + edema Musculoskeletal: Extremities: no cyanosis and no clubbing Skin: normal turgor; no lesions Neurologic: Motor/Sensory: no tremor and no asterixis Psychiatric: Orientation: alert and oriented x 3 Results & Data ([facility]) Vital Signs (Past 12 Hours) Vital Signs Temp Pulse Resp BP Pulse Ox 06/02/21 09:30 74 14 109/63 92 06/02/21 09:00 77 16 100/69 92 06/02/21 08:30 76 14 114/65 89 L 06/02/21 08:12 89 109/71 88 L 06/02/21 08:00 77 121/69 95 06/02/21 07:30 61 102/60 95 06/02/21 07:00 87 13 116/65 94 06/02/21 06:45 79 12 94 06/02/21 04:30 78 14 99/51 L 94 06/02/21 04:01 37.2 C 82 18 108/62 89 L 06/02/21 03:30 76 13 91/60 L 95 06/02/21 03:00 96 H 105/69 81 L 06/02/21 02:30 80 15 90/52 L 93 06/02/21 02:00 76 13 84/52 L 95 06/02/21 01:34 80 20 101/51 L 91 06/02/21 01:30 90 23 85 L 06/02/21 01:16 80 13 92/54 L 95 06/02/21 01:00 77 12 74/51 L 94 06/02/21 00:30 81 16 88/54 L 86 L Laboratory Results Laboratory Results - last 24 hr 06/01/21 06/02/21 06/02/21 16:20 05:24 05:29 WBC RBC Hgb Hct MCV MCH MCHC RDW Std Deviation RDW Coeff of Carol Plt Count MPV Immature Gran % (Auto) Neut % (Auto) Lymph % (Auto) [place] % (Auto) Eos % (Auto) Baso % (Auto) Neut # (Auto) Lymph # (Auto) [place] # (Auto) Eos # (Auto) Baso # (Auto) Immature Gran # (Auto) Platelet Estimate RBC Morphology Sodium 129 L Potassium 4.6 Chloride 97 L Carbon Dioxide 25 Anion Gap 7 BUN 32 H Creatinine 2.49 H Est Cr Clr Drug Dosing 33.0 Est GFR ( Amer) 24.9 Est GFR (Non-Af Amer) 21.5 BUN/Creatinine Ratio 12.9 Glucose 147 H POC Glucose 147 H Calcium 7.0 L Phosphorus 5.0 H Magnesium 1.8 Total Bilirubin 2.3 H Direct Bilirubin 1.4 H AST 46 H ALT 22 Alkaline Phosphatase 79 Total Creatine Kinase Total Protein 4.7 L Albumin 2.0 L 06/02/21 06/02/21 05:29 05:29 WBC 23.96 H RBC 3.53 L Hgb 11.6 L Hct 36.5 L MCV 103.4 H MCH 32.9 MCHC 31.8 L RDW Std Deviation 59.5 H RDW Coeff of Carol 15.6 H Plt Count 88 L MPV 10.6 H Immature Gran % (Auto) 0.8 Neut % (Auto) 88.2 Lymph % (Auto) 4.9 [place] % (Auto) 6.0 Eos % (Auto) 0.0 Baso % (Auto) 0.1 Neut # (Auto) 21.14 H Lymph # (Auto) 1.17 L [place] # (Auto) 1.44 H Eos # (Auto) 0.01 Baso # (Auto) 0.02 Immature Gran # (Auto) 0.18 H Platelet Estimate Decreased L RBC Morphology Unremarkable Sodium Potassium Chloride Carbon Dioxide Anion Gap BUN Creatinine Est Cr Clr Drug Dosing Est GFR ( Amer) Est GFR (Non-Af Amer) BUN/Creatinine Ratio Glucose POC Glucose Calcium Phosphorus Magnesium Total Bilirubin Direct Bilirubin AST ALT Alkaline Phosphatase Total Creatine Kinase 62 Total Protein Albumin PG Care Time/CCT Total # of Minutes Spent Total Time Spent with Patient: Total time spent is greater than 50% in coordination of care (as documented) at patient's floor/unit and/or counseling patient: Coding Level of Care Code 17025 Subseq Hosp Care Lvl 3 Diagnoses KITA (acute kidney injury) N17.9 Cardiomyopathy I42.9 Septic shock A41.9; R65.21
--- NOTE | 2021-06-02 15:02 | Hospitalist Progress Note ---
Date of Service June 02, 2021 Assessment & Plan (1) Septic shock: Plan: Manifested by hypotension, tachycardia, +procal, KITA, leukocytosis with gallstone pancreatitis s/p EUS/ERCP w/ biliary and pancreatic stent placement - WBC finally now downtrending, this AM 23,900 w/ left shift - Now weaned off pressors, continue IVF - Continue empiric broad spectrum abx including Zosyn & Dapto - ALL BP meds (Entresto and Coreg) remain on hold - No plan for cholecystectomy during this admission, could consider eventually as o/p - Received stress dose steroids which has since been discontinued - Will transfer out of ICU to PCU (2) Cholangitis: Plan: - See #1 (3) Pancreatitis, gallstone: Plan: - Diffuse abdominal pain with Lipase 3093. CT of the abdomen showed the gallbladder consistent with cholelithiasis. No evidence for wall thickening or pericholecystic edema seen. Acute pancreatitis with peripancreatic inflammatory changes and mesenteric edema is present. - LFTs trending down - Blood cultures pending final results but negative thus far for growth - IV Zosyn & Dapto as above - Continue LR IVF - Dilaudid 0.25mg Q6h prn ordered, change to 0.5mg IV q4h and IV APAP for better pain control - GI consulted, underwent above procedures as noted in #1 - Clinically starting to improve, clear liquid diet ordered (4) Cholelithiases: Plan: -As above. No evidence of acute cholecystitis, surgery w/o plans for emergent cholecystectomy at this time (5) UTI (urinary tract infection): Plan: - She is empirically on Zosyn & Dapto - Culture data noted no growth, but would treat given her chronic immune suppression with chemo and metastatic breast CA - UA nitrite positive with 1+ leukocyte esterase and >30 wbc (6) Acute kidney injury: Plan: - Likely ischemic ATN d/t septic shock now with oliguria - Continue IVF - Renal ultrasound ordered--no hydro noted - Nephrology following, appreciate assistance - Hold entresto as outlined above - Maintain vincent and follow urine output - Trend labs (7) Heart failure with reduced ejection fraction: Plan: -Echo from 05/10/21 reveals EF 45-50%. Left ventricular systolic function is borderline reduced, borderline hypokinesis of left ventricle. -Will hold Bumex for now as patient is hypovolemic. -Continue to monitor BMP daily as well as for signs of volume overload. -Hold Entresto and Coreg due to #1 (8) Cardiomyopathy: Plan: -Idiopathic versus chemotherapy-induced. -As above. (9) Hypomagnesemia: Plan: - Replace/resolved (10) Metastatic breast cancer: Plan: - Patient reports her last chemo treatment approx 1 month ago. - Brain and bone mets (11) Reactive airway disease: Plan: - Continue albuterol inhaler. - Continue fluticasone salmeterol inhaler. - Monitor SpO2. Wean O2 as able to keep sats >90% (12) DVT prophylaxis: Plan: - SCDs ordered. - Would hold chemoprophylaxis due to thrombocytopenia (13) Morbid obesity with BMI of 40.0-44.9, adult: Plan: Transfer from ICU to PCU Continue interventions as outlined above Advance diet to clear liquids Follow up labs in AM including cbc, cmp, procal, and lipase Will d/w Dr. De La Rosa, further orders as warranted. Admission and Anticipated Discharge Date Admission Date: May 30, 2021 Subjective Patient seen on daily rounds this morning. She remains in ICU. She is now off vasopressors. BP remains stable. Supplemental oxygen is being weaned down. She has been seen by surgery who does not intend to pursue emergent cholecystectomy at this time. Pt reports that she feels better today. She still has some epigas tric/LUQ abdominal discomfort. Denies n/v, f/c. Urinary catheter still in place and appears that urine output has increased. Review of Systems Review of Systems: Constitutional: Reports chills, no objective fever, myalgias, night sweats Eyes: No diplopia, no worsening or blurred vision ENT: normal hearing, no trouble swallowing Respiratory: No cough, sputum, dyspnea at rest or on exertion Cardiovascular: No chest pain, tightness or palpitations Abdomen: Abd pain (as above); no diarrhea or constipation Musculoskeletal: No joint pain, calf pain, swelling Neurologic: No weakness, numbness/tingling, or balance problems Psychiatric: No anxiety or depression Skin: No rash or itch Physical Exam Physical Exam: GENERAL: 51 yo obese WF who appears ill. NAD. LUNGS: Clear to auscultation bilaterally. No W/R/R. CARDIOVASCULAR: Regular rate and rhythm. No M/G/R. No JVD. ABDOMEN: Soft, no significant distention, tender to light palpation in epigastrium and LUQ. Decreased BS throughout. EXTREMITIES: Trace edema b/l LE. Non-tender. Peripheral pulses +2/4. NEUROLOGIC: A&O x3. PSYCHIATRIC: Cooperative. Appropriate mood and affect. SKIN: warm, dry, intact. Results & Data Results & Data ([facility]) Vital Signs (Past 12 Hours) Vital Signs Temp Pulse Resp BP Pulse Ox 06/02/21 12:01 99 H 93/65 L 91 06/02/21 12:00 89 L 06/02/21 11:30 92 H 118/71 90 06/02/21 11:01 80 13 115/58 L 92 06/02/21 11:00 76 14 91 06/02/21 10:30 78 14 108/60 91 06/02/21 10:00 82 17 108/67 93 06/02/21 09:30 74 14 109/63 92 06/02/21 09:00 77 16 100/69 92 06/02/21 08:30 76 14 114/65 89 L 06/02/21 08:12 89 109/71 88 L 06/02/21 08:00 77 121/69 95 06/02/21 07:30 61 102/60 95 06/02/21 07:00 87 13 116/65 94 06/02/21 06:45 79 12 94 06/02/21 04:30 78 14 99/51 L 94 06/02/21 04:01 37.2 C 82 18 108/62 89 L 06/02/21 03:30 76 13 91/60 L 95 06/02/21 03:00 96 H 105/69 81 L Laboratory Results 06/02/21 05:29 06/02/21 05:29 Diagnostic Findings US abdomen complete CLINICAL HISTORY: eval for obstructive uropathy TECHNIQUE: Real-time sonographic images of the abdomen were obtained. COMPARISON: Comparison is made to CT abdomen pelvis 05/30/2021 FINDINGS: The liver is diffusely echogenic in appearance with poor ultrasound penetration, with normal contour, which is consistent with fatty infiltration. There is no intrahepatic ductal dilatation. Gallbladder and biliary tree: No gallstones or sludge are seen. Normal caliber wall. No pericholecystic fluid. Common bile duct diameter is 0.3 cm. The right kidney measures 10.8 cm in length. The left kidney measures 12.1 cm in length. There is no evidence of hydronephrosis or mass in the bilateral kidneys. Spleen: Spleen measures 12.3 cm in length. Unremarkable. The pancreas was nonvisualized due to overlying bowel gas. No free fluid was seen in the abdomen. IMPRESSION: No evidence of hydronephrosis. Redemonstration of hepatic steatosis. ACT 112: Negative or not required by law. Electronically signed by: Jose David Luque M.D. 06/01/2021 11:09 AM Dictated:06/01/21 1053 Transcribed: 06/01/21 1053 ECG Additional Comments: tele -- NSR w/ occasional PVCs PG Care Time/CCT Total # of Minutes Spent Total Time Spent with Patient: Total time spent is greater than 50% in coordination of care (as documented) at patient's floor/unit and/or counseling patient: Coding Level of Care Code 09678 Subseq Hosp Care Lvl 3 Diagnoses Septic shock A41.9; R65.21 Cholangitis K83.09 Pancreatitis, gallstone K85.10 Cholelithiases K80.20 UTI (urinary tract infection) N39.0 Acute kidney injury N17.9 Heart failure with reduced ejection fraction I50.20 Cardiomyopathy I42.9 Hypomagnesemia E83.42 Metastatic breast cancer C50.919 Reactive airway disease J45.909 DVT prophylaxis Z29.9 Morbid obesity with BMI of 40.0-44.9, adult E66.01; Z68.41
[2021-06-02] MEDS: DAPTOmycin 475 MG in SYRINGE 0 ML IV SCH (18:09)
[2021-06-02] MEDS: HYDROmorphone INJ 0.5 MG/0.5 ML SYR IV PRN (20:41)
[2021-06-03] MEDS: PIPERACILLIN/TAZOBACTAM 4.5 GM in DEXTROSE 5% 100 ML IV SCH ×4 (00:09→23:07)
[2021-06-03] MEDS: LACTATED RINGER'S 1,000 ML IV SCH ×2 (01:39→11:59)
[2021-06-03 05:31] LABS: BUN Creatinine Ratio 23.9 (10-20); Calcium 6.9 mg/dl (8.5-10.1); Creatinine Clr Calc Pharmacy 51.7 ml/min; Est GFR (African American) 42.8 ml/min; Est GFR (Non-African American) 36.9 ml/min; Magnesium 2.2 mg/dl (1.7-2.4); Phosphorus 3.5 mg/dl (2.5-4.9); Potassium 4.1 mmol/L (3.5-5.1)
[2021-06-03 08:37] LABS: Basophils # (auto) 0.04 K/uL (0-0.2); Basophils % (auto) 0.2 %; Eosinophils % (auto) 0.4 %; Hematocrit (blood only) 35.4 % (37-47); Hemoglobin 11.3 g/dL (12.0-16.0); Immature Granulocytes # (auto) 0.28 K/uL (0.00-0.02); Immature Granulocytes % (auto) 1.2 %; Lymphocytes # (auto) 2.19 K/uL (1.2-3.4); Lymphocytes % (auto) 9.4 %; Mean Corpuscular Hemoglobin 32.6 pg (25-34); Mean Platelet Volume 10.6 fL (7.4-10.4); Monocytes # (auto) 2.41 K/uL (0.11-0.59); Monocytes % (auto) 10.3 %; Neutrophils # (auto) 18.32 K/uL (1.4-6.5); Neutrophils % (auto) 78.5 %; Platelet Count 109 K/uL (130-400); RDW Coefficient of Variation 15.7 % (11.5-14.5); RDW Standard Deviation 58.8 fL (36.4-46.3); Red Blood Count 3.47 M/uL (4.2-5.4); White Blood Count 23.34 K/uL (4.8-10.8)
[2021-06-03 08:40] LABS: Mean Corpuscular Hgb Conc 31.9 g/dL (32-36)
--- NOTE | 2021-06-03 08:50 | Gastroenterology Progress Note ---
Date of Service June 03, 2021 Assessment & Plan (1) Septic shock: (2) Gallstone pancreatitis: Plan: Pt is a 51 yo female w hx of metastatic breast ca seen for suspected gallstone pancreatitis. Underwent EUS/ERCP 05/31 - benign papillary stenosis noted though no stones found. Biliary sphincterectomy performed, biliary stent and pancreatic stent placed. She was transferred to ICU due to septic shock, currently on NE support. Off pressors now w stable BP. WBC, LFTs, Cr improving. She denies abd pain, n/v. - Continue broad spectrum antibx support - Keep IVF support, however if tolerating PO intake, may DC - Not likely a surgical candidate for cholecystectomy per Surgery team. Will arrange f/u in outpt clinic to discuss Axios stent and drainage of gallbladder with Dr. Mckeon - Plan on repeat ERCP 3 months to remove biliary stent (giving time for pt to have cholecystectomy if she's a surgical candidate); pancreatic duct stent should pass by itself within about 2 week's time - No new GI plans; GI will sign off, please call with questions or concerns Thank you for allowing us to participate in the care of this patient. Please call with any acute changes, questions or concerns. Please see addendum below with additional recommendation from my supervising physician. Admission and Anticipated Discharge Date Admission Date: May 30, 2021 Supervising Physician Co-Signing Physician Notes I performed a history and physical examination of the patient today, including specifically on physical exam - soft abdomen. I have discussed the patient's management with the advanced practitioner. Please refer to the nurse practitioner's note for the documented findings and plan of care. Continue to improve. Advance diet as tolerated. Recall GI if needed. Subjective No acute events overnight. Patient sitting upright in bedside chair. She t olerated clear liquids for breakfast today. Denies abdominal pain, nausea vomiting, hematemesis melena or hematochezia, fevers or chills, chest pain or shortness of breath. Review of Systems Review of Systems: All systems reviewed & are unremarkable except as noted in HPI & below Physical Exam Constitutional: WD/WN, vitals as above Eyes: PERRL, conjunctivae normal, anicteric sclerae Respiratory: normal respiratory effort, lungs clear to auscultation Cardiovascular: RRR, no murmur, no edema Gastrointestinal (Abdomen): normal bowel sounds, soft, nontender, no hepatosplenomegaly Skin: no rashes, warm and dry Psychiatric: A+Ox3, euthymic affect Results & Data ([facility]) Vital Signs (Past 12 Hours) Vital Signs Temp Pulse Pulse Resp BP Pulse Ox 06/03/21 03:31 36.6 C 78 16 108/51 L 94 06/03/21 00:45 97 H 06/03/21 00:34 36.6 C 84 16 110/70 93 06/02/21 20:53 36.6 C 68 22 129/82 94 Laboratory Results 06/03/21 06/03/21 Range/Units 04:51 04:37 WBC 23.34 H (4.8-10.8) K/uL RBC 3.47 L (4.2-5.4) M/uL Hgb 11.3 L (12.0-16.0) g/dL Hct 35.4 L (37-47) % MCV 102.0 H (80-100) fL MCH 32.6 (25-34) pg MCHC 31.9 L (32-36) g/dL RDW Std Deviation 58.8 H (36.4-46.3) fL RDW Coeff of Carol 15.7 H (11.5-14.5) % Plt Count 109 L (130-400) K/uL MPV 10.6 H (7.4-10.4) fL Immature Gran % (Auto) 1.2 % Neut % (Auto) 78.5 % Lymph % (Auto) 9.4 % [place] % (Auto) 10.3 % Eos % (Auto) 0.4 % Baso % (Auto) 0.2 % Neut # (Auto) 18.32 H (1.4-6.5) K/uL Lymph # (Auto) 2.19 (1.2-3.4) K/uL [place] # (Auto) 2.41 H (0.11-0.59) K/uL Eos # (Auto) 0.10 (0-0.5) K/uL Baso # (Auto) 0.04 (0-0.2) K/uL Immature Gran # (Auto) 0.28 H (0.00-0.02) K/uL Sodium 131 L (136-145) mmol/L Potassium 4.1 (3.5-5.1) mmol/L Chloride 100 (98-107) mmol/L Carbon Dioxide 26 (21-32) mmol/L Anion Gap 5 (3-11) BUN 38 H (6-23) mg/dl Creatinine 1.59 H D (0.6-1.2) mg/dl Est Cr Clr Drug Dosing 51.7 ml/min Est GFR ( Amer) 42.8 ml/min Est GFR (Non-Af Amer) 36.9 ml/min BUN/Creatinine Ratio 23.9 H (10-20) Glucose 148 H (70-99(Fasting)) mg/dl Calcium 6.9 L (8.5-10.1) mg/dl Phosphorus 3.5 D (2.5-4.9) mg/dl Magnesium 2.2 (1.7-2.4) mg/dl Lipase 101 H (11-82) U/L
[2021-06-03] MEDS: HYDROmorphone INJ 0.5 MG/0.5 ML SYR IV PRN (09:30)
[2021-06-03] MEDS: FLUTICASONE/VILANTEROL 100/25MCG 14 PUFFS/INHALER INH SCH (09:30)
[2021-06-03] MEDS ORDERED: GLUCAGON FOR INJ 1 MG VIAL ONE (09:48)
--- NOTE | 2021-06-03 10:34 | Nephrology Progress Note ---
Date of Service June 03, 2021 Assessment & Plan (1) KITA (acute kidney injury): (2) Cardiomyopathy: (3) Septic shock: Plan: KITA clinically consistent with ATN and prerenal physiology. Baseline creatinine normal, 0.7 mg/dL. Good urine output. CT and US reviewed did not demonstrate evidence of obstruction. Kidneys normal in appearance. Intravascular volume replacement will be continued pending adequate PO intake. No signs of decompensated CHF at this time. BP acceptable. No role for dialysis. Continued renal recovery noted. Suggest additional IVF only as needed to encourage even to slightly positive fluid balance. Hold diuretics. UA/microscopy demonstrating mixed sediment will be repeated today. Document strict I/O's. Repeat metabolic profile tomorrow AM. Medications appropriately dosed for kidney dysfunction. Monitor CK on dapto. Entresto held. Admission and Anticipated Discharge Date Admission Date: May 30, 2021 Subjective No acute events overnight. Seen during ICU rounds this AM. Breathing comfortably. Denies pain. No fevers or chills. Review of Systems Review of Systems: All systems reviewed & are unremarkable except as noted in HPI & below Physical Exam Constitutional: well developed; no acute distress Eyes: no scleral abnormality and no corneal abnormality ENMT: Mouth: no oral mucosal abnormality and oral mucous membranes not dry Neck: normal visual inspection and trachea midline Respiratory: normal respiratory effort Auscultation: lungs clear to auscultation bilaterally Cardiovascular: Rate/Rhythm: regular rate Heart Sounds: normal S1 and normal S2 Extremities: + edema Musculoskeletal: Extremities: no cyanosis and no clubbing Skin: normal turgor; no lesions Neurologic: Motor/Sensory: no tremor and no asterixis Psychiatric: Orientation: alert and oriented x 3 Results & Data ([facility]) Vital Signs (Past 12 Hours) Vital Signs Temp Pulse Pulse Resp BP Pulse Ox 06/03/21 03:31 36.6 C 78 16 108/51 L 94 06/03/21 00:45 97 H 06/03/21 00:34 36.6 C 84 16 110/70 93 Laboratory Results Laboratory Results - last 24 hr 06/03/21 06/03/21 04:37 04:51 WBC 23.34 H RBC 3.47 L Hgb 11.3 L Hct 35.4 L MCV 102.0 H MCH 32.6 MCHC 31.9 L RDW Std Deviation 58.8 H RDW Coeff of Carol 15.7 H Plt Count 109 L MPV 10.6 H Immature Gran % (Auto) 1.2 Neut % (Auto) 78.5 Lymph % (Auto) 9.4 [place] % (Auto) 10.3 Eos % (Auto) 0.4 Baso % (Auto) 0.2 Neut # (Auto) 18.32 H Lymph # (Auto) 2.19 [place] # (Auto) 2.41 H Eos # (Auto) 0.10 Baso # (Auto) 0.04 Immature Gran # (Auto) 0.28 H Sodium 131 L Potassium 4.1 Chloride 100 Carbon Dioxide 26 Anion Gap 5 BUN 38 H Creatinine 1.59 H D Est Cr Clr Drug Dosing 51.7 Est GFR ( Amer) 42.8 Est GFR (Non-Af Amer) 36.9 BUN/Creatinine Ratio 23.9 H Glucose 148 H Calcium 6.9 L Phosphorus 3.5 D Magnesium 2.2 Lipase 101 H PG Care Time/CCT Total # of Minutes Spent Total Time Spent with Patient: Total time spent is greater than 50% in coordination of care (as documented) at patient's floor/unit and/or counseling patient: Coding Level of Care Code 81855 Subseq Hosp Care Lvl 3 Diagnoses KITA (acute kidney injury) N17.9 Cardiomyopathy I42.9 Septic shock A41.9; R65.21
--- NOTE | 2021-06-03 13:45 | Hospitalist Progress Note ---
Date of Service June 03, 2021 Assessment & Plan (1) Septic shock: Plan: Manifested by hypotension, tachycardia, +procal, KITA, leukocytosis with gallstone pancreatitis s/p EUS/ERCP w/ biliary and pancreatic stent placement -- RESOLVED - WBC finally now downtrending, this AM 23,300 w/ left shift - Day #2 being off vasopressors - She is s/p 48 hours of Dapto, will stop at this point, continue Zosyn, no culture data to support that she had GPC infection - ALL BP meds (Entresto and Coreg) remain on hold - No plan for cholecystectomy during this admission per surgery's documentation, will pursue as outpatient - Received stress dose steroids which has since been discontinued, could be contributing to her leukocytosis - Thrombocytopenia noted, likely secondary to her acute illness - She remains in ICU waiting for bed on PCU, at this point she can go to med/aguilar rg (2) Cholangitis: Plan: - See #1 (3) Pancreatitis, gallstone: Plan: - On admit: diffuse abdominal pain with Lipase 3093. CT AP showed cholelithiasis. No evidence of wall thickening or pericholecystic edema seen. Acute pancreatitis w/ peripancreatic inflammatory changes and mesenteric edema present. - Lipase this AM 101 - Blood cultures pending final results yielding no growth - Antibiotics as above, cap IVF as she is tolerating oral intake - Dilaudid is still on board as needed for pain - GI consulted, underwent above procedures as noted in #1 - Ongoing clinical improvement, tolerating clear liquids (4) Cholelithiases: Plan: - As above. No evidence of acute cholecystitis, surgery w/o plans for emergent cholecystectomy at this time (5) UTI (urinary tract infection): Plan: - She is empirically on Zosyn (had 48 hrs of Dapto) - Culture data noted no growth, but would treat given her chronic immune suppression with chemo and metastatic breast CA - UA nitrite positive with 1+ leukocyte esterase and >30 wbc (6) Acute kidney injury: Plan: - Likely ischemic ATN d/t septic shock which is now resolved - Cap IVF - Renal ultrasound ordered--no hydro noted - Nephrology following, appreciate assistance - Hold entresto as outlined above - D/C melisa (7) Heart failure with reduced ejection fraction: Plan: - Echo from 05/10/21 reveals EF 45-50%. Left ventricular systolic function is borderline reduced, borderline hypokinesis of left ventricle. - Continue holding Bumex for now - Continue for signs of volume overload--some edema noted in legs but otherwise no s/sx of decompensated CHF - Hold Entresto and Coreg due to #1 (8) Cardiomyopathy: Plan: - Idiopathic versus chemotherapy-induced. - As above. (9) Hypomagnesemia: Plan: - Replace/resolved (10) Metastatic breast cancer: Plan: - Patient reports her last chemo treatment approx 1 month ago. - Brain and bone mets (11) Reactive airway disease: Plan: - Continue albuterol inhaler. - Continue fluticasone salmeterol inhaler. - Weaned off supplemental O2 w/ good oxygen saturation on room air (12) Type 2 diabetes mellitus: Plan: - Diet controlled, last A1c 6.6% in 08/2020 - FBS 148 this AM--likely elevated in setting of recent IV steroid administration (13) DVT prophylaxis: Plan: - SCDs ordered. - Would hold chemoprophylaxis due to thrombocytopenia Plan: Continues to remain in ICU waiting for tele bed, will downgrade to med/surg Encourage pt to get out of bed, sit in chair, consult PT Interventions as outlined above, tolerating diet, cap fluids, d/c vincent De-escalate abx (d/c Dapto), continue empiric Zosyn Follow up labs in AM Admission and Anticipated Discharge Date Admission Date: May 30, 2021 Subjective Patient seen on rounds this morning. She is currently in bed, resting comfortably, offers no new complaints. Tolerating clear liquids w/o abdominal pain, n/v/d. Denies fever/chills, cp, or dyspnea. Remains in ICU waiting for a bed on PCU. Review of Systems Review of Systems: Constitutional: no fever, chills, myalgias, night sweats Eyes: No diplopia, no worsening or blurred vision ENT: normal hearing, no trouble swallowing Respiratory: No cough, sputum, dyspnea at rest or on exertion Cardiovascular: No chest pain, tightness or palpitations Abdomen: no abd pain, nausea, diarrhea or constipation Musculoskeletal: No joint pain, calf pain, swelling Neurologic: No weakness, numbness/tingling, or balance problems Psychiatric: No anxiety or depression Skin: No rash or itch Physical Exam Physical Exam: GENERAL: 51 yo obese WF, pleasant, cooperative. NAD. LUNGS: Clear to auscultation bilaterally. No W/R/R. CARDIOVASCULAR: Regular rate and rhythm. No M/G/R. No JVD. ABDOMEN: Soft, ND, tender to moderate palpation in epigastrium and LUQ. BS present x 4 quad. EXTREMITIES: 1+ edema b/l LE. Non-tender. Peripheral pulses +2/4. NEUROLOGIC: A&O x3. PSYCHIATRIC: Cooperative. Appropriate mood and affect. SKIN: warm, dry, intact. Results & Data Results & Data ([facility]) Vital Signs (Past 12 Hours) Vital Signs Temp Pulse Pulse Resp BP BP Pulse Ox 06/03/21 12:26 36.6 C 94 H 18 132/80 93 06/03/21 03:31 36.6 C 78 16 108/51 L 94 Laboratory Results 06/03/21 04:51 06/03/21 04:37 ECG Additional Comments: TELE--Sinus rhythm 80s PG Care Time/CCT Total # of Minutes Spent Total Time Spent with Patient: Total time spent is greater than 50% in coordination of care (as documented) at patient's floor/unit and/or counseling patient: Coding Level of Care Code 94255 Subseq Hosp Care Lvl 3 Diagnoses Septic shock A41.9; R65.21 Cholangitis K83.09 Pancreatitis, gallstone K85.10 Cholelithiases K80.20 UTI (urinary tract infection) N39.0 Acute kidney injury N17.9 Heart failure with reduced ejection fraction I50.20 Cardiomyopathy I42.9 Hypomagnesemia E83.42 Metastatic breast cancer C50.919 Reactive airway disease J45.909 DVT prophylaxis Z29.9 Type 2 diabetes mellitus E11.9
[2021-06-04 06:48] LABS: Hematocrit (blood only) 38.7 % (37-47); Hemoglobin 12.6 g/dL (12.0-16.0); Mean Corpuscular Hemoglobin 32.9 pg (25-34); Mean Corpuscular Hgb Conc 32.6 g/dL (32-36); Mean Platelet Volume 10.2 fL (7.4-10.4); Platelet Count 104 K/uL (130-400); RDW Coefficient of Variation 15.6 % (11.5-14.5); Red Blood Count 3.83 M/uL (4.2-5.4)
[2021-06-04 07:01] LABS: Calcium 7.1 mg/dl (8.5-10.1); Creatinine Clr Calc Pharmacy 93.3 ml/min; Est GFR (African American) 87.6 ml/min; Est GFR (Non-African American) 75.5 ml/min; Magnesium 2.2 mg/dl (1.7-2.4); Phosphorus 2.7 mg/dl (2.5-4.9)
[2021-06-04 07:14] LABS: Basophils # (auto) 0.05 K/uL (0-0.2); Basophils % (auto) 0.2 %; Eosinophils # (auto) 0.14 K/uL (0-0.5); Eosinophils % (auto) 0.7 %; Immature Granulocytes # (auto) 1.05 K/uL (0.00-0.02); Immature Granulocytes % (auto) 4.9 %; Lymphocytes # (auto) 2.11 K/uL (1.2-3.4); Lymphocytes % (auto) 9.9 %; Monocytes # (auto) 2.31 K/uL (0.11-0.59); Monocytes % (auto) 10.8 %; Neutrophils # (auto) 15.74 K/uL (1.4-6.5); Neutrophils % (auto) 73.5 %
[2021-06-04] MEDS: HEPARIN 100 UNIT/ML 5ML FLUSH FLUSH PRN ×2 (08:23→20:13)
--- NOTE | 2021-06-04 09:37 | Nephrology Progress Note ---
Date of Service June 04, 2021 Assessment & Plan (1) KITA (acute kidney injury): Plan: * KITA - likely ATN, resolved. Patient is now nonoliguric. Volume status and electrolyte balance are acceptable * No further Nephrology evaluation indicated at this time. Will sign off. Please call if further assistance is needed (2) Cardiomyopathy: Plan: * Currently compensated. Resume Entresto when needed (3) Septic shock: Admission and Anticipated Discharge Date Admission Date: May 30, 2021 Subjective Mrs. Molina was evaluated in her hospital room this morning. She is tolerating a liquid diet without abdominal discomfort Review of Systems Constitutional: no fever Eyes: no problem reported Ear, Nose, Mouth, Throat: no problem reported Respiratory: no cough and no dyspnea Cardiovascular: no chest pain, no palpitations and no edema Gastrointestinal: no abdominal pain Genitourinary: no dysuria and no hematuria Musculoskeletal: no back pain Integumentary: no rash Neurologic: no confusion Physical Exam Constitutional: not in distress Eyes: PERRL, conjunctivae normal, anicteric sclerae ENMT: external ear and nose normal, oropharynx normal Neck: trachea midline, no thyromegaly Respiratory: normal respiratory effort, lungs clear to auscultation Cardiovascular: RRR, no murmur, no edema Gastrointestinal (Abdomen): Inspection/Auscultation: abdomen normal to inspection and normal bowel sounds Skin: no rashes, warm and dry Neurologic: awake; not confused Results & Data ([facility]) Vital Signs (Past 12 Hours) Vital Signs Temp Pulse Pulse Resp BP BP Pulse Ox 06/04/21 07:11 36.7 C 86 18 112/71 95 06/03/21 22:43 36.5 C 83 20 112/74 94 Laboratory Results Laboratory Tests 06/03/21 06/04/21 06/04/21 04:37 06:28 06:28 WBC 21.40 H Hgb 12.6 Hct 38.7 Plt Count 104 L Sodium 131 L Potassium 4.0 Chloride 99 Carbon Dioxide 27 BUN 29 H Creatinine 0.88 D Glucose 154 H Calcium 7.1 L Phosphorus 2.7 Magnesium 2.2 Lipase 101 H PG Care Time/CCT Total # of Minutes Spent Total Time Spent with Patient: Total time spent is greater than 50% in coordination of care (as documented) at patient's floor/unit and/or counseling patient: Coding Level of Care Code 21352 Subseq Hosp Care Lvl 3 Diagnoses KITA (acute kidney injury) N17.9 Cardiomyopathy I42.9 Septic shock A41.9; R65.21
[2021-06-04] MEDS: FLUTICASONE/VILANTEROL 100/25MCG 14 PUFFS/INHALER INH SCH (09:50)
[2021-06-04] MEDS: PIPERACILLIN/TAZOBACTAM 4.5 GM in DEXTROSE 5% 100 ML IV SCH ×3 (09:50→23:56)
[2021-06-04] MEDS ORDERED: CALCIUM CARBONATE 500 MG CHEWABLE TAB PO PRN (12:03)
--- NOTE | 2021-06-04 16:18 | Hospitalist Progress Note ---
Date of Service June 04, 2021 Assessment & Plan (1) Septic shock: Plan: Manifested by hypotension, tachycardia, +procal, KITA, leukocytosis with gallstone pancreatitis s/p EUS/ERCP w/ biliary and pancreatic stent placement -- RESOLVED - WBC finally now downtrending - Off vasopressors since 06/02, though BP still running on the low end (90/55). - ALL BP meds (Entresto and Coreg) remain on hold. - No plan for cholecystectomy during this admission per surgery's documentation, will pursue as outpatient at tertiary care ([facility] in [place]) - Received stress dose steroids which has since been discontinued, could be contributing to her leukocytosis - Thrombocytopenia noted, likely secondary to her acute illness (2) Cholangitis: Plan: - See #1 (3) Pancreatitis, gallstone: Plan: On admit: diffuse abdominal pain with Lipase 3093. CT A/P showed cholelithiasis. No evidence of wall thickening or pericholecystic edema seen. Acute pancreatitis w/ peripancreatic inflammatory changes and mesenteric edema present. - Blood cultures on 05/31 with no growth - Antibiotics as above - Dilaudid is still on board as needed for pain - GI consulted, underwent above procedures as noted in #1 (4) Cholelithiases: Plan: - As above. No evidence of acute cholecystitis, surgery w/o plans for emergent cholecystectomy at this time. (5) Acute kidney injury: Plan: - Likely ischemic ATN d/t septic shock which is now resolved. - Nephrology following, appreciate assistance - Hold Entresto as outlined above (6) UTI (urinary tract infection): Plan: She is empirically on Zosyn (had 48 hrs of Dapto). - Culture data noted no growth, but would treat given her chronic immunosuppression with chemo and metastatic breast CA. - UA nitrite positive with 1+ leukocyte esterase and >30 wbc (7) Heart failure with reduced ejection fraction: Plan: Echo from 05/10/21 reveals EF 45-50%. Left ventricular systolic function is borderline reduced, borderline hypokinesis of left ventricle. - Continue holding Bumex for now - Continue for signs of volume overload--some edema noted in legs but otherwise no s/sx of decompensated CHF. - Hold Entresto and Coreg due to #1 (8) Cardiomyopathy: Plan: Idiopathic versus chemotherapy-induced. - As above. (9) Metastatic breast cancer: Plan: Patient reports her last chemo treatment approx 1 month ago. - Brain and bone mets (10) Reactive airway disease: Plan: - Continue albuterol inhaler. - Continue fluticasone salmeterol inhaler. - Weaned off supplemental O2 w/ good oxygen saturation on room air (11) Type 2 diabetes mellitus: Plan: - Diet controlled, last A1c 6.6% in 08/2020 (12) DVT prophylaxis: Plan: - SCDs ordered. Admission and Anticipated Discharge Date Admission Date: May 30, 2021 Subjective Doing well today overall. Has some GERD-type upper chest pain, but does radiate into the back of the throat with a burning sensation. Has been ongoing for several weeks and is better today than some days at home. Has been taking Tums with improvement. Physical Exam Constitutional: WD/WN, vitals as above Eyes: EOM intact bilaterally; no conjunctival abnormality ENMT: external ear and nose normal, oropharynx normal Neck: trachea midline, no thyromegaly normal visual inspection Respiratory: normal respiratory effort, lungs clear to auscultation no respiratory distress Cardiovascular: RRR, no murmur, no edema Gastrointestinal (Abdomen): Inspection/Auscultation: abdomen normal to inspection; abdomen not distended Musculoskeletal: no cyanosis or clubbing, extremities motor strength 5/5 Skin: no rashes, warm and dry Neurologic: moves all extremities and awake Psychiatric: Orientation: alert, oriented to person and cooperative Results & Data Results & Data ([facility]) Vital Signs (Past 12 Hours) Vital Signs Temp Pulse Resp BP BP Pulse Ox 06/04/21 15:57 88/54 L 06/04/21 15:38 73 16 83/52 L 92 06/04/21 07:11 36.7 C 86 18 112/71 95 PG Care Time/CCT Total # of Minutes Spent Total Time Spent with Patient: Total time spent is greater than 50% in coordination of care (as documented) at patient's floor/unit and/or counseling patient: Coding Level of Care Code 58329 Subseq Hosp Care Lvl 3 Diagnoses Septic shock A41.9; R65.21 Cholangitis K83.09 Pancreatitis, gallstone K85.10 Cholelithiases K80.20 UTI (urinary tract infection) N39.0 Acute kidney injury N17.9 Heart failure with reduced ejection fraction I50.20 Cardiomyopathy I42.9 Metastatic breast cancer C50.919 Reactive airway disease J45.909 Type 2 diabetes mellitus E11.9 DVT prophylaxis Z29.9
[2021-06-05] MEDS: PIPERACILLIN/TAZOBACTAM 4.5 GM in DEXTROSE 5% 100 ML IV SCH (08:31)
[2021-06-05] MEDS: FLUTICASONE/VILANTEROL 100/25MCG 14 PUFFS/INHALER INH SCH (08:31)
[2021-06-05 08:41] LABS: Hematocrit (blood only) 38.2 % (37-47); Hemoglobin 12.4 g/dL (12.0-16.0); Mean Corpuscular Hemoglobin 32.8 pg (25-34); Mean Corpuscular Hgb Conc 32.5 g/dL (32-36); Mean Corpuscular Volume 101.1 fL (80-100); Mean Platelet Volume 10.5 fL (7.4-10.4); Platelet Count 101 K/uL (130-400); RDW Coefficient of Variation 15.7 % (11.5-14.5); Red Blood Count 3.78 M/uL (4.2-5.4); White Blood Count 22.75 K/uL (4.8-10.8)
[2021-06-05 09:03] LABS: Albumin Globulin Ratio 0.7 (0.9-2); Albumin Level 2.1 gm/dl (3.4-5.0); BUN Creatinine Ratio 28.1 (10-20); Bilirubin,Total 2.7 mg/dl (0.2-1.0); Calcium 7.1 mg/dl (8.5-10.1); Creatinine Clr Calc Pharmacy 154.2 ml/min; Est GFR (African American) 123.5 ml/min; Est GFR (Non-African American) 106.6 ml/min; Globulin 2.9 gm/dl (2.5-4.0); Magnesium 2.1 mg/dl (1.7-2.4); Phosphorus 2.2 mg/dl (2.5-4.9); Potassium 3.8 mmol/L (3.5-5.1)
[2021-06-05] MEDS: HEPARIN 100 UNIT/ML 5ML FLUSH FLUSH PRN (12:23)
--- NOTE | 2021-06-05 16:56 | Discharge Summary ---
Date of Service June 05, 2021 Admission HPI Per Admitting Provider Patient is a 51-year-old female with past medical history of stage IV metastatic breast cancer, HFrEF (EF 45-50%), cardiomyopathy, reactive airway disease, and obesity who presents with abdominal pain and vomiting. Patient states yesterday morning, 05/29, she became nauseated and shortly after. began experiencing frequent emesis. Emesis started out as clear liquid, is now dark green. As the day went on, she developed abdominal pain that has been constant and diffuse in nature. She has been taking her morphine which has slightly alleviated her pain temporarily, however she has been unable to keep meals down since yesterday morning. She endorses diffuse abdominal pain, chills, nausea, and frequent emesis. She also notes she has been more constipated over the past 2 days, but otherwise BMs are unchanged, denies rosie-like stools or diarrhea. No recorded fever, confusion, lightheadedness, dizziness, or urinary symptoms such as increased frequency, urgency, or dysuria. Patient has had chronic nausea with emesis over the 1-2 months, her oncologist believed this may due to one of her chemotherapy agents, which was stopped 3-4 weeks ago. She has not received treatment since then. She has metastatic disease to her lymph nodes, brain, and bone, but denies knowledge of any liver or other abdominal metastatic disease. Principal Diagnosis Cholangitis Bile duct blockage from a polyp s/p sphincterectomy and stents Discharge Exam Constitutional WD/WN, vitals as above Eyes EOM intact bilaterally; no conjunctival abnormality ENMT external ear and nose normal, oropharynx normal Neck trachea midline, no thyromegaly normal visual inspection Respiratory normal respiratory effort, lungs clear to auscultation no respiratory distress Cardiovascular RRR, no murmur, no edema Gastrointestinal (Abdomen) Inspection/Auscultation: abdomen normal to inspection; abdomen not distended Musculoskeletal no cyanosis or clubbing, extremities motor strength 5/5 Skin no rashes, warm and dry Neurologic moves all extremities and awake Psychiatric Orientation: alert, oriented to person and cooperative Discharge Data Allergies Allergy/AdvReac Type Severity Reaction Status Date / Time adhesive Allergy Rash Verified 04/27/21 14:42 No Known Drug Allergies Allergy Verified 04/27/21 14:42 Consultations 05/30/21 11:58 ED Decision to Admit Stat 05/30/21 20:46 Consult Gastroenterology Routine 05/31/21 17:52 Consult Traffic Personnel Supervisor Routine 06/01/21 09:16 Consult General Surgery Routine 06/01/21 10:58 Consult Nephrology Routine Procedures Performed Operation Date: 05/31/21 09:05 Actual Procedures p Esophagogastroduodenoscopy - Barber Mckeon MD s Endoscopic Ultrasonography Upper - Barber Mckeon MD p Endoscopic Retrograde Cholangiopancreato - Barber Mckeon MD Ordered Studies 05/30/21 09:41 CT abd pelvis IV con only Stat 05/31/21 [place] ERCP biliary ductal Routine 05/31/21 13:23 US upper EUS PACS images Routine 06/01/21 09:56 US abdomen complete Urgent Hospital Course (1) Septic shock: Manifested by hypotension, tachycardia, +procal, KITA, leukocytosis with pancreatitis s/p EUS/ERCP w/ biliary and pancreatic stent placement -- RESOLVED - No plan for cholecystectomy during this admission per surgery's documentation, will pursue as outpatient at tertiary care ([facility] in [place]) - Received stress dose steroids which has since been discontinued, could be contributing to her leukocytosis - Thrombocytopenia noted, likely secondary to her acute illness -> BP was returning to normal by discharge. Restarted carvedilol and Bumex on discharge. Hold Entresto until seen by PCP. - Discussed with Dr. Mckeon on 06/05. While LFTs not entirely back to normal and WBC still ~20, Dr. Mckeon felt these were expected to not be entirely normalized yet. Will follow-up with PCP for recheck this week and see Dr. Mckeon in 2-3 weeks with plan for biliary stent to be removed in 6 weeks. - Augmentin x 8 more days for a 14-day course. (2) Cholangitis: - See #1 (3) Pancreatitis, gallstone: On admit: diffuse abdominal pain with Lipase 3093. CT A/P showed cholelithiasis. No evidence of wall thickening or pericholecystic edema seen. Acute pancreatitis w/ peripancreatic inflammatory changes and mesenteric edema present. - Blood cultures on 05/31 with no growth - Antibiotics as above - GI consulted, underwent above procedures as noted in #1 (4) Cholelithiases: - As above. No evidence of acute cholecystitis, surgery w/o plans for emergent cholecystectomy at this time. (5) Acute kidney injury: - Likely ischemic ATN d/t septic shock which is now resolved. - Nephrology following, appreciate assistance - Hold Entresto as outlined above (6) UTI (urinary tract infection): She is empirically on Zosyn (had 48 hrs of Dapto). - Culture data noted no growth, but would treat given her chronic immunosuppression with chemo and metastatic breast CA. - UA nitrite positive with 1+ leukocyte esterase and >30 wbc (7) Heart failure with reduced ejection fraction: Echo from 05/10/21 reveals EF 45-50%. Left ventricular systolic function is borderline reduced, borderline hypokinesis of left ventricle. - Held Bumex while inpatient; resume on discharge. - Continue carvedilol - Hold Entresto until seen by PCP. (8) Cardiomyopathy: Idiopathic versus chemotherapy-induced. - As above. (9) Metastatic breast cancer: Patient reports her last chemo treatment approx 1 month ago. - Brain and bone mets (10) Reactive airway disease: - Continue albuterol inhaler. - Continue fluticasone salmeterol inhaler. - Weaned off supplemental O2 w/ good oxygen saturation on room air (11) Type 2 diabetes mellitus: - Diet controlled, last A1c 6.6% in 08/2020 (12) DVT prophylaxis: - SCDs ordered. Total Time Total Time Spent Total Time Spent (In Minutes): 35 Discharge Plan Discharge Items Patient Disposition: Home - Self-Care Reason For Visit: PANCREATITIS Discharge Diagnosis: Gallbladder obstruction from benign papillary causing narrowing of the bile duct Condition on Discharge: Good Activity: Resume your previous activity Non-emergency contact: Primary Care Provider, Mechanical Expert and Oncologist Call non-emergency contact if: your symptoms worsen and your temperature is above 101 Follow-up/Referrals: Ancelmo Ledbetter DO [Primary Care Provider] - Barber Mckeon MD [Hospitalist] - (Please see Dr. Mckeon in 2-3 weeks. You will need to have a repeat procedure in 6 weeks to remove one of the stents.) Diet: Heart Healthy Addtl Attending Provider Instructions: Ms. Molina, You were admitted to the hospital with obstruction of your bile duct from a small polyp. Dr. Mckeon did a procedure to open up your bile duct. Please see Dr. Mckeon in 2-3 weeks. You will need to have a repeat procedure in 6 weeks to remove one of the stents he placed. We also felt that an infection got into the gallbladder while it was blocked up, and we have had you on IV antibiotics. We are sending you home with 8 more days of antibiotics by pill form. Your first dose is tonight before bedtime, then twice a day until it is gone. Please come back to the hospital with worsening stomach or right-upper abdominal pain, fevers, nausea, vomiting, or other concerning symptoms. Please see Dr. Ledbetter as soon as you can just to establish a post-hospital visit. We are holding your Entresto until you see him in the office because your blood pressure was on the low side after your sickness. If Dr. Ledbetter gives the ok, you can resume that in a week or so. Pending Studies at Discharge: No Stand-Alone Forms: My [facility] [employer], Smoking Cessation Medications and DC Order Prescriptions: New amoxicillin-pot clavulanate 875-125 mg tablet 1 tab PO BID Qty: 17 RF: 0 Continued albuterol sulfate [ProAir HFA] 90 mcg/actuation HFA aerosol inhaler 2 puffs INH QID PRN (Reason: shortness of breath or wheezing) Qty: 18 RF: 2 bumetanide 1 mg tablet 1 mg PO BID Qty: 180 RF: 3 fluticasone propion-salmeterol 232-14 mcg/actuation aerosol powdr breath activated 1 inh inhalation BID Qty: 1 RF: 2 carvedilol 12.5 mg tablet 12.5 mg PO BID Qty: 180 RF: 3 benzonatate 100 mg capsule 200 mg PO TID PRN (Reason: cough) Qty: 60 RF: 2 gemcitabine [Gemzar] 1 dose IV WK RF: 0 ondansetron HCl 8 mg tablet 8 mg PO Q12H RF: 0 sumatriptan succinate [Imitrex] 25 mg tablet 25 mg PO Q2H PRN (Reason: Migraine Headache) RF: 0 zoledronic acid 4 mg/5 mL solution 4 mg IV Q3MO RF: 0 Discontinued sacubitril-valsartan 24-26 mg tablet 1 tab PO BID Qty: 180 RF: 3 Discharge Orders: Discharge Order (Routine); Ordered 06/05/21 Ordered By: Shawn Briceno/Other Patient Handouts: Urinary Tract Infections in Women, ED Pancreatitis Admission Data Admit Date/Time: 05/30/21 14:11 Attending Provider: Shawn Telles Admit Provider: Dayton Mendez Primary Care Provider: Ancelmo Ledbetter Other Providers: Dayton Mendez ; Barber Mckeon ; Silvano Xiong ; Zac Epperson ; Jazmyn Rivera ; Christo Alicea ; Dayton Bowman ; Colleen Cespedes ; [place] Other Interventions: Discharge Summary Assessment (RN) Last Done: 06/05/21 15:34 Coding Level of Care Code D/C DAY MANAGEMENT >30 MINS Diagnoses Septic shock A41.9; R65.21 Cholangitis K83.09 Pancreatitis, gallstone K85.10 Cholelithiases K80.20 Acute kidney injury N17.9 UTI (urinary tract infection) N39.0 Heart failure with reduced ejection fraction I50.20 Cardiomyopathy I42.9 Metastatic breast cancer C50.919 Reactive airway disease J45.909 Type 2 diabetes mellitus E11.9 DVT prophylaxis Z29.9
--- NOTE | 2021-06-05 18:07 | Electrocardiogram Report ---
Test Reason : Blood Pressure : / mmHG Vent. Rate : 097 BPM Atrial Rate : 097 BPM P-R Int : 180 ms QRS Dur : 104 ms QT Int : 360 ms P-R-T Axes : 063 -47 094 degrees QTc Int : 457 ms Sinus rhythm with frequent Premature ventricular complexes in a pattern of bigeminy Left anterior fascicular block T wave abnormality, consider lateral ischemia Abnormal ECG When compared with ECG of 01-JUN-2020 10:04, Premature ventricular complexes are now Present Confirmed by Anant Jean ([id number]) on 06/05/2021 6:06:56 PM Referred By: REFERRED SELF Confirmed By:Anant Jean
== END 2021-06-05 17:25 | disposition home or self-care (01) | DRG 871 ==
LOC: ED 09:13 → 3W 14:11 → SUATTDRO 14:11 → 3W 19:59 → PACUINP 05-31 17:54 → 1E 05-31 19:29 → 3W 06-03 18:54